=== PATIENT | male | born 1990 | race Caucasian/White ===

== ENCOUNTER 2024-04-26 17:11 | Emergency (ER) | payer OTHER, SELFPAY ==
[2024-04-26 17:12] VITALS: BP 132/88; PULSE 99; RESP 18; TEMP 36; O2SAT 97
--- NOTE | 2024-04-26 17:16 | RAD_ITS ---
STUDY: X-RAY - RIGHT HAND REASON FOR EXAM: Male, 33 years old. Trauma TECHNIQUE: 3 view(s) of the hand. COMPARISON: None. FINDINGS: Small fracture of the tip of the ulnar styloid. Nondisplaced fracture running obliquely through the fifth distal phalanx. No other acute abnormalities are seen. Normal radiocarpal articulation. Normal distal radioulnar joint. Normal visualized carpal bones. Normal carpal articulations Normal carpometacarpal articulation of the thumb. Normal second through fifth carpometacarpal joints. Normal metacarpi. Normal metacarpophalangeal joint of the thumb. Normal interphalangeal joint of the thumb. Normal proximal and distal phalanges of the thumb. Normal metacarpophalangeal joints of the second through fifth fingers. Normal proximal and distal interphalangeal joints of the second through fifth fingers. Normal phalanges of the second through fifth fingers. The soft tissue structures are unremarkable. RAD/Hand Min 3 Views IMPRESSION: Nondisplaced fracture of the fifth distal phalanx. Fracture of the tip of the ulnar styloid. Otherwise negative. Electronically Signed: Herman Maldonado MD at 18:00 EDT ,
--- NOTE | 2024-04-26 17:25 | RAD_ITS ---
STUDY: X-RAY - RIGHT WRIST REASON FOR EXAM: Male, 33 years old. Trauma TECHNIQUE: 3 view(s) of the wrist were obtained. COMPARISON: None. FINDINGS: There is a small nondisplaced fracture of the tip of the ulnar styloid. Otherwise normal visualized distal radius and ulna. Normal radiocarpal articulation. Normal distal radioulnar articulation. Normal carpal bones. Normal carpal articulations. Normal carpometacarpal articulation of the thumb. Normal second through fifth carpometacarpal articulations. Normal visualized metacarpal bones. The soft tissue structures are unremarkable. RAD/Wrist min 3 Views IMPRESSION: Tiny nondisplaced fracture of the ulnar styloid, otherwise negative. Electronically Signed: Herman Maldonado MD at 17:57 EDT ,
--- NOTE | 2024-04-26 18:01 | EX.ED.UPPERE ---
HPI History of Present Illness HPI Narrative: Patient presents with right wrist injury that occurred today. Patient states that he was loading a boat onto a trailer and the boat went over the dorsal aspect of his right wrist. The patient describes his pain as sharp and aching. Patient states it is worse with movement. Patient states his pain is better with rest. Patient was to some tingling into his right pinky finger. Patient denies any weakness. Patient is unsure of his last tetanus but thinks it was more than 10 years ago. Chief Complaint: Upper Extremity Injury Informant: patient Occured/Mechanism Mechanism/Context: Yes crush and Yes direct blow Onset/Context/Timing Onset: Today Context: Sudden Onset Timing: Continuous Quality of Pain: Aching Location: Right wrist Worsened by: Movement Relieved by: Rest Associated Symptoms Associated Symptoms: Positive for Parasthesia; Negative for Weakness or Loss of Funtion Narrative Tetanus Immunization: >10 years PFS PFS Medical History no medical history no medical history Allergy/AdvReac Type Severity Reaction Status Date / Time No Known Allergies Allergy Verified 04/26/24 17:12 Surgical History (Updated 04/26/24 @ 18:[address] Daniel Rashid DO) History of surgery on upper extremity Social History Smoking Status: Never smoker ROS ROS ED Constitutional Constitutional ED: Denies chills or fever(s) Eyes Eyes: Denies blurry vision or change in vision ENT ENT ED: Denies rhinorrhea or sore throat Cardiovascular Cardiovascular: Denies chest pain or palpitations Respiratory/Chest Respiratory/Chest: Denies cough or dyspnea Gastrointestinal Gastrointestinal: Denies nausea or vomiting Genitourinary Genitourinary ED: Denies dysuria or hematuria Musculoskeletal Musculoskeletal: Denies back pain or neck pain Integumentary Denies abscess or rash Neurologic Neurologic: Denies headache(s) or weakness Allergic/Immunologic Allergic/Immunologic ED: Denies mouth swelling or urticaria EXAM Physical Exam Const Vital Signs: 04/26/24 17:12 Temperature 96.8 F L Temperature Source Temporal Pulse Rate 99 Respiratory Rate 18 Blood Pressure 132/88 H Blood Pressure Mean 102 Pulse Ox 97 Oxygen Delivery Method Room Air Positive well nourished and well developed General Appearance ED: well developed and NAD HEENT Reports moist mucous membranes normocephalic and atraumatic Neck full ROM and supple Extremity Extremity Narrative: There is tenderness over the dorsal aspect of the right wrist. There is some edema. There is no ecchymosis. There is no obvious deformity noted. Range of motion was limited in all motions of the right wrist secondary to pain. Strength is 5/5 in the radial, median, and ulnar areas. Sensation was intact to light touch in the radial, median, and ulnar areas. However, there is decreased sensation to light touch of the distal phalanx of the right fifth finger. Radial pulses are equal bilaterally. Capillary refill is less than 2 seconds in all digits. Neuro oriented x3, CN's II-XII intact bilaterally, moves all extremities, no focal motor deficits and no sensory deficits noted Sensorium / Orientation: alert Motor Exam: strength 5/5 throughout Skin Skin Narrative: There is an abrasion over the dorsal aspect of the right index finger over the PIP joint. There is no active bleeding noted. There is no tenderness over this area. There is no erythema or warmth noted. There is full range of motion. Trauma: abrasion MDM MDM MDM Narrative Medical decision making narrative: Differential diagnosis includes fracture, contusion, and sprain. X-rays of the right hand will be obtained to assess for fracture. X-rays of the right wrist will be obtained to assess for fracture. Radiography Diagnostic Testing: Clinical Impression(s) from Imaging Studies Hand X-Ray 04/26/24 17:16 IMPRESSION: Nondisplaced fracture of the fifth distal phalanx. Fracture of the tip of the ulnar styloid. Otherwise negative. Electronically Signed: Herman Maldonado MD at 18:00 EDT , Wrist X-Ray 04/26/24 17:25 IMPRESSION: Tiny nondisplaced fracture of the ulnar styloid, otherwise negative. Electronically Signed: Herman Maldonado MD at 17:57 EDT , X-rays of the right hand were obtained. There are 3 views. On my independent interpretation, there is a nondisplaced fracture of the distal phalanx of the right fifth finger. There is also a small fracture of the tip of the ulnar styloid bone. There is no displacement of the fractures noted. Radiologist also interpreted the x-rays and agrees. X-rays of the right wrist were obtained. There are 3 views. On my independent interpretation, there is a nondisplaced fracture of the ulnar styloid. There is no other acute fracture noted. Radiologist also interpreted the x-rays and agrees. Treatment and Re-Evaluation Narrative: Patient was given a tetanus booster. Patient was advised of his findings. Patient was given an aluminum foam splint for his finger. Patient was given a Velcro wrist splint for his wrist. Patient was instructed to take Tylenol or ibuprofen as needed for pain. Patient was instructed to follow-up with his primary care physician in 5 to 7 days for further evaluation. Patient understood and was agreeable with the plan. All questions were answered. Discharge Plan Triage Chief Complaint: Upper Extremity Injury ED Provider: Daniel Rashid Dx/Rx/DC Orders Clinical Impression: Closed fracture of distal phalanx of right little finger, Closed fracture of styloid process of right ulna Instructions: ED Fracture, Finger, Closed, ED Fracture, Wrist, General Primary Care Provider: Rhonda Padilla NP Referrals: Cuco Sánchez MD [Med Staff - Active Staff] - 5-7 Days Care Physician,No Primary [Non-Staff] - Print Language: Monegasque Disposition Disposition: Home, Self Care
[2024-04-26] MEDS: Diphth,Pertuss(Acell),Tet Vac 0.5 ML Vial IM (18:43)
[2024-04-26 18:55] VITALS: BP 139/88; PULSE 72; RESP 16; TEMP 36.4; O2SAT 99
== END 2024-04-26 18:57 | disposition home or self-care (01) ==
PROVIDERS: Emergency Provider Emergency Medicine; PCP Nurse Practitioner Family; Visit Provider Emergency Medicine
DX: S52.614A Nondisplaced fracture of right ulna styloid process, initial encounter for closed fracture (principal); S62.666A Nondisplaced fracture of distal phalanx of right little finger, initial encounter for closed fracture; W22.8XXA Striking against or struck by other objects, initial encounter; Y93.89 Activity, other specified; Z23 Encounter for immunization
CPT/HCPCS: 73110; 73130; 90471; 90715; 99283

== ENCOUNTER 2024-10-12 12:17 | Outpatient (RCR) | payer OTHER, SELFPAY ==
--- NOTE | 2024-10-12 14:05 | HP.PTEVAL_ITS ---
Patient's Visit Information Visit Information Visit Information: SAHIL CAMPA is a 34 year old M referred to Physical Therapy by TYLOR Chairez with a diagnosis of SPINAL STENOSIS ,LUMBAR REGION WITH NEUROGENIC. Date of Evaluation: 10/12/24 Physical Therapist: Jose Miguel Kumar, PT, Cert MDT, OCS Visit Plan Frequency: 2x /Week Duration: 4 Weeks Plan: PT INTERVENTIONS DLS ,POSTURAL EX'S ,LE FLEXABILITY ,HIP STRENGTHENING ,AND MODALITIES Subjective Subjective: This 34 y/o male presents to physical therapy with lumbar stenosis with radicular symptoms in legs. Patient has sincek 2014 which progressively worse ~ 3 weeks ago. Patient seen TYLOR Boland and did x-rays and prescribed flexural. Patient states rely on a shopping cart to lean on when grocery shopping. He complains of occasional numbness/tingling and radiating pain into the legs right > left. Location pain extends from his right buttock down the back of his right leg into his calf. Aggravating walking ~ 10 mins . Alleviating factors sitting ,bending forward. Coughing/sneezing. Bowel/bladder-. Patient has no prior TX . Patient has no prior trauma/injury. recommended pain management . MRI is scheduled . November 08. Patient condition affects QOL and function/job demands VOCATION: [employer] SOCIAL: Pain Bilateral Back: Pain Intensity (Out of 10): 5 Pain Intensity Range: 10 Comment: right LS Objective Objective: POSTURE: mild forward posture GAIT: reciprocal pattern NEURO: c/o parestehesia/tingling right leg PALPATION: unremarkable FLEXABILITY: hamstrings mod tight MMT: quads/hams 4/5 ,hip flexion 4-/'5,ankle 5/5 LUMBAR ROM: flexion min/,mod loss loss ,extension min loss ,side glides min loss Special Tests L/S Slump test left side: Negative L/S Slump test right side: Negative L/S Left Straight Leg Raise: Negative L/S Right Straight Leg Raise: Negative Lumbar Standing: Flexion - Mechanical Response: No effect Lumbar Standing: Flexion - Symptoms During Testing: No effect Lumbar Standing: Flexion - Symptoms After Testing: No effect Lumbar Standing: Extension - Mechanical Response: No effect Lumbar Standing: Extension - Symptoms During Testing: Increases Lumbar Standing: Extension - Symptoms After Testing: No worse Lumbar Standing: Right Side Glides - Mechanical Response: No effect Lumbar Standing: Right Side [place] - Symptoms During Testing: No effect Lumbar Standing: Right Side [place] - Symptoms After Testing: No effect Lumbar Standing: Left Side [place] - Mechanical Response: No effect Lumbar Standing: Left Side [place] - Symptoms During Testing: No effect Lumbar Standing: Left Side [place] - Symptoms After Testing: No effect Lumbar Lying: Flexion - Mechanical Response: No effect Lumbar Lying: Flexion - Symptoms During Testing: Increases Lumbar Lying: Flexion - Symptoms After Testing: No worse Lumbar Lying: Extension - Mechanical Response: No effect Lumbar Lying: Extension - Symptoms During Testing: Increases Lumbar Lying: Extension - Symptoms After Testing: No worse Comments:: back Balance/Special Test Scores Oswestry Low Back Score: 24 Goals Goal 1:: Patient to be I with HEP for back Goal Time Frame: 4-6 Weeks Goal 2:: Patient to improve lumbar ROM for function recovery to lift at job Goal Time Frame: 4-6 Weeks Goal 3:: Patient to improve back oswestry score by 5 points to improve QOL and function Goal Time Frame: 4-6 Weeks Goal 4:: Patient to demonstrate 50% with improvement with less pain and improved function Goal Time Frame: 4-6 Weeks Goal 5:: Patient to improve ability to walk > 15 mins to improve ADLS Goal Time Frame: 4-6 Weeks Rehabilitation Potential Physical Therapy Diagnosis: This patient has lumbar radiculopathy with possible stenosis with pain worse with walking and better with flexion and sitting thus benefit from skilled PT Rehabilitation Potential: Good Anticipated Interventions Patient/Client Instruction: Educate patient on: Condition and Plan of Care For the Purpose of:: To decrease pain, To increase ROM, To improve muscle performance and motor function, To improve ability to perform ADL's, To increase tolerance to activity/condition/position, To improve ability of physical actions for home/community/work/leisure, To improve health of tissue, To decrease soft tissue restriction, To increase flexibility/ROM, To reduce risk of recurrence, To prevent re-injury and To improve tolerance to ADL's Therapeutic Exercise to Include: Strength training, Endurance training, Postural training, Flexibilty training, Dynamic Lumbar Stabilization and [place] Exercises For the Purpose of:: To decrease pain, To increase ROM, To improve muscle performance and motor function, To improve ability to perform ADL's, To increase tolerance to activity/condition/position, To improve ability of physical actions for home/community/work/leisure, To improve health of tissue, To decrease soft tissue restriction, To increase flexibility/ROM, To reduce risk of recurrence and To improve tolerance to ADL's TENS: Yes IF ES: Yes Cryotherapy (ice pack, ice massage): Yes Thermo therapy (hot pack): Yes Ultrasound (thermal/non thermal): Yes For the Purpose of:: To decrease pain, To increase ROM, To improve nutrient delivery to tissue, To increase oxygenation perfusion, To improve health of tissue and To decrease soft tissue restriction Text: Thank you for the opportunity to evaluate your patient. For Medicare and Medicare HMO plans, please review the plan of care and approve it. It will need to be FAXED BACK to us at [phone] for Medicare purposes. For Medicare only, by signing this I certify the plan of care. Please let me know if there are questions or concerns regarding this plan of care. Physician S ignature: Date:
--- NOTE | 2025-01-10 11:27 | HP.PT.NRP ---
Patient Information Patient Information: SAHIL CMAPA was seen in my office for initial evaluation on 10/12/24. The following Plan of Care was established for this patient: POC Established Initial Frequency: 2x /Week Initial Duration: 4 Weeks Anticipated Interventions Patient/Client Instruction: Educate patient on: Condition and Plan of Care For the Purpose of:: To decrease pain, To increase ROM, To improve muscle performance and motor function, To improve ability to perform ADL's, To increase tolerance to activity/condition/position, To improve ability of physical actions for home/community/work/leisure, To improve health of tissue, To decrease soft tissue restriction, To increase flexibility/ROM, To reduce risk of recurrence, To prevent re-injury and To improve tolerance to ADL's Therapeutic Exercise to Include: Strength training, Endurance training, Postural training, Flexibilty training, Dynamic Lumbar Stabilization and [place] Exercises For the Purpose of:: To decrease pain, To increase ROM, To improve muscle performance and motor function, To improve ability to perform ADL's, To increase tolerance to activity/condition/position, To improve ability of physical actions for home/community/work/leisure, To improve health of tissue, To decrease soft tissue restriction, To increase flexibility/ROM, To reduce risk of recurrence and To improve tolerance to ADL's TENS: Yes IF ES: Yes Cryotherapy (ice pack, ice massage): Yes Thermo therapy (hot pack): Yes Ultrasound (thermal/non thermal): Yes For the Purpose of:: To decrease pain, To increase ROM, To improve nutrient delivery to tissue, To increase oxygenation perfusion, To improve health of tissue and To decrease soft tissue restriction Last Seen Last Seen: This patient was last seen in our office . Pertinent comments regarding their Physical therapy will appear below: Patient was seen for PT for evaluation for spinal stenosis and HEP At this point I will be discontinuing this patient from physical therapy. I would be happy to see this patient again in the future if found appropriate by the physician. Thank you! Jose Miguel Kumar, PT, Cert MDT, OCS Balance/Gait/Functional tests Balance/Special Test Scores Oswestry Low Back Score: 24
== END 2024-10-12 19:00 | disposition home or self-care (01) ==
LOC: PT 12:17
PROVIDERS: PCP Nurse Practitioner Family; Visit Provider Student in an Organized Health Care Education/Training Program
DX: M48.062 Spinal stenosis, lumbar region with neurogenic claudication (principal)
CPT/HCPCS: 97110; 97162

== ENCOUNTER → 2025-02-28 | Outpatient (CLI) | payer OTHER, SELFPAY ==
--- OUTSIDE RECORDS SUMMARY | 2025-02-28 07:09 | XMS RPT_ITS | CCD ---
Author Organization [facility] Care Team Providers Care Flour Blender Name Role Phone Unavailable Primary Care Provider Unavailabl e Sheets DO, Page C Primary Care Provider [phone] Sheets DO, Page C Primary Care Provider [phone] PRADEEP BYRD Attending Unavailable SHEETS, PAGE SORIA Primary Care Dejah vailable SHEETS, PAGE Primary Care Physician Otis Giraldo Attending Unavailable SHEETS, PAGE Primary Care Unavailable SHEETS, PAGE Primary Care Unavailable Otis Giraldo Attending Unavailable SHEETS, PAGE C Primary Care Unavailable SHEETS, PAGE C Referring Unavailable SHEETS, PAGE C Referring Unavailable SHEETS, PAGE C Primary Care Unavailable SHEETS, PAGE C Primary Care Unavailable QUEDEN, RHONDA A Attending Unavailable SHEETS, PAGE C Primary Care Unavailable PARAMJIT JUARESICA Referring Unavailable SHEETS, PAGE C Attending Unavailable SHEETS, PAGE C Primary Care Unavailable SELF Referring Unavailable SHEETS, PAGE C Primary Care Unavailable SHEETS, PAGE C Referring Unavailable SHEETS, PAGE C Primary Care Unavailable SHEETS, PAGE C Primary Care Unavailable QUEDEN, RHONDA A Referring Unavailable SHEETS, PAGE C Primary Care Unavailable QUEDEN, RHONDA A Referring Unavailable SHEETS, PAGE C Primary Care Unavailable Queden TURRET PUNCH OPERATOR-C, Rhonda Primary Care Provider Queden TURRET PUNCH OPERATOR-C, Rhonda Referring Provider Rosenda Espinosa Attending Provider Rick CLINTON, Dr. Barbour Attending Provider Km Cabrera Attending Unavailable Queden TURRET PUNCH OPERATOR, Rhonda Primary Care Unavailable Queden TURRET PUNCH OPERATOR, Rhonda Referring Unavailable Queden TURRET PUNCH OPERATOR, Rhonda Primary Care Unavailable Cuco Sánchez Attending Unavailable Queden TURRET PUNCH OPERATOR, Rhonda Primary Care Unavailable Queden TURRET PUNCH OPERATOR, Rhonda Referring Unavailable Cuco Sánchez Attending Unavailable Rick, [place] Attending Unavailable Queden TURRET PUNCH OPERATOR, Rhonda Primary Care Unavailable Queden TURRET PUNCH OPERATOR, Rhonda Referring Unavailable Queden TURRET PUNCH OPERATOR, Rhonda Primary Care Unavailable Cuco Sánchez Attending Unavailable Rick, [place] Attending Unavailable Queden TURRET PUNCH OPERATOR, Rhonda Primary Care Unavailable Queden TURRET PUNCH OPERATOR, Rhonda Referring Unavailable Queden TURRET PUNCH OPERATOR, Rhonda Primary Care Unavailable Krystian, Rosenda Attending Unavailable Krystian, Rosenda Referring Unavailable Queden TURRET PUNCH OPERATOR, Rhonda Primary Care Unavailable Krystian, Rosenda Attending Unavailable Queden TURRET PUNCH OPERATOR, Rhonda Primary Care Unavailable Krystian, Rosenda Attending Unavailable Queden TURRET PUNCH OPERATOR, Rhonda Primary Care Unavailable Daniel Rashid Attending Unavailable Allergies Allergy Classification Reported Allergen(s) Allergy Type Date of Onset Reaction(s) Facility (1 source) No Known Medication Allergies; Translations: [No Known Medication Allergies] Propensity to adverse reactions (disorder) [facility] Rep[facility] Medications Current Medications Medication Drug Class(es) Dates Sig (Normalized) Sig (Original) amoxicillin 875 mg / clavulanate 125 mg oral tablet (2 sources) Penicillin-class Antibacterial Start: 11-27-2024 End: 12-07-2024 take 1 tablet by mouth twice daily amoxicillin-clavulan ate potassium (AUGMENTIN) 875-125 mg per tablet Indications: Acute non-recurrent streptococcal tonsillitis Take 1 tablet by mouth two times a day for 10 days. 20 tablet 11/27/2024 12/07/2024 Active cyclobenzaprine hydrochloride 10 mg oral tablet (20 sources) Muscle Relaxant Start: 02-12-2025 End: 02-24-2025 take 1 tablet by mouth every eight hours as needed cyclobenzaprine (FLEXERIL) 10 mg tablet Take 1 tablet by mouth three times a day as needed for muscle spasm. 90 tablet 02/25/2025 Active Start: 01-24-2025 End: 02-09-2025 take 1 tablet by mouth every eight hours as needed cyclobenzaprine (FLEXERIL) 10 mg tablet Take 1 tablet by mouth three times a day as needed for muscle spasm. 90 tablet 01/24/2025 02/09/2025 Discontinued Start: 01-07-2025 take 1 tablet by karina th every eight hours as needed cyclobenzaprine (FLEXERIL) 10 mg tablet Take 1 tablet by mouth three times a day as needed for muscle spasm. 90 tablet 01/07/2025 Active Start: 11-19-2024 End: 01-05-2025 take 1 tablet by mouth every eight hours as needed cyclobenzaprine (FLEXERIL) 10 mg tablet Take 1 tablet by mouth three times a day as needed for muscle spasm. 90 tablet 12/04/2024 01/05/2025 Discontinued Start: 10-09-2024 take 1 tablet by karina th twice daily as needed for muscle spasms Cyclobenzaprine 10 mg tablet Active 10 mg PO TWICE A DAY as needed for muscle spasm October 09, 2024 1:00am Start: 10-02-2024 End: 11-05-2024 take 1 tablet by mouth every eight hours as needed cyclobenzaprine (FLEXERIL) 10 mg tablet Take 1 tablet by mouth three times a day as needed for muscle spasm. 21 tablet 10/22/2024 11/05/2024 Discontinued Start: 06-30-2024 End: 07-05-2024 take 1 tablet by mouth three times daily as needed for pain cyclobenzaprine 10 mg Tab 10 mg = 1 tab(s), Oral, TID, PRN Muscle pain, X 5 day(s), # 15 tab(s), Refills(s) 0, Pharmacy: [id number], 170.1, cm, 06/29/24 22:03:00 EDT, Height/Length Dosing, 91.9, kg, 06/29/24 22:03:00 EDT, Weight Dosing Start Date: 06/30/24 Stop Date: 07/05/24 Status: Ordered escitalopram 20 mg oral tablet (20 sources) Serotonin Reuptake Inhibitor Start: 02-12-2025 take 1 tablet by mouth once daily escitalopram oxalate (LEXAPRO) 20 mg tablet Take 1 tablet by mouth once daily. 30 tablet 5 02/12/2025 Active Start: 08-22-2023 End: 02-09-2025 take 1 tablet by mouth once daily escitalopram oxalate (LEXAPRO) 20 mg tablet TAKE 1 TABLET BY MOUTH EVERY DAY in the afternoon 30 tablet 11 11/05/2024 02/09/2025 Discontinued Comment on above: Take 1 tablet by karina th every afternoon. gabapentin 300 mg oral capsule (5 sources) Anti-epileptic Agent Start: 11-21-19 take 1 capsule by mouth every twelve hours gabapentin (NEURONTIN) 300 mg capsule Take 1 capsule by mouth every 12 hours. 11/20/2024 Active meloxicam 7.5 mg oral tablet (5 sources) Nonsteroidal Anti-inflammatory Drug Start: 11-21-19 take 1 tablet by mouth every twelve hours meloxicam (MOBIC) 7.5 mg tablet Take 1 tablet by mouth every 12 hours. 11/20/2024 Active multivit-min/folic/vi t K/lycop (ONE-A-DAY MEN'S MULTIVITAMIN ORAL) (20 sources) take 1 tablet by mouth once daily, then take 1 tablet by mouth once daily multivit-min/folic/v it K/lycop (ONE-A-DAY MEN'S MULTIVITAMIN ORAL) Take 1 tablet by mouth once daily. Active take 1 tablet by karina th once daily, then take 1 tablet by mouth once daily multivit-min/folic/vit K/lycop (ONE-A-DA Y MEN'S MULTIVITAMIN ORAL) Take 1 tablet by mouth once daily. 0 Active Comment on above: Take 1 tablet by karina th once daily. naproxen 500 mg oral tablet (1 source) Nonsteroidal Anti-inflammatory Drug Start: 4 take 1 tablet by mouth twice daily as needed for pain naproxen 500 mg Tab 500 mg = 1 tab(s), Oral, BID, PRN for pain, # 20 tab(s), Refills(s) 0, Pharmacy: [id number], 170.1, cm, 06/29/24 22:03:00 EDT, Height/Length Dosing, 91.9, kg, 06/29/24 22:03:00 EDT, Weight Dosing Start Date: 06/30/24 Status: Ordered predniSONE 20 mg oral tablet (10 sources) Start: 5 End: 5 take 1 tablet by mouth twice daily predniSONE (DELTASONE) 20 mg tablet Indications: Acute non-recurrent streptococcal tonsillitis Take 1 tablet by mouth two times a day for 3 days. 6 tablet 11/27/2024 11/30/2024 Active Start: 10-02-2024 End: 11-27-2024 predniSONE (DELTASONE) 10 mg tablet Take 4 tabs daily for 3 days, then 2 tabs daily for 3 days, then 1 tab daily for 3 days with food. 21 tablet 10/02/2024 11/27/2024 Discontinued (Course of therapy completed) Problems Active Problems Problem Classification Problem Date Documented Date Episodic/Chronic Anxiety disorders (20 sources) Generalized anxiety disorder; Translations: [Generalized anxiety disorder] Onset: 09-14-2023 09-14-2023 Chronic Nonspecific chest pain (2 sources) Chest pain, unspecified; Translations: [Chest pain, unspecified] Onset: 06-11-2024 Episodic Nutritional deficiencies (3 sources) Vitamin D deficiency; Translations: [Vitamin D deficiency, unspecified] Onset: 03-29-2024 03-29-2024 Chronic Other connective tissue disease (1 source) Muscle pain; Translations: [Myalgia, other site] Onset: 06-30-2024 Episodic Other connective tissue disease (2 sources) Pain in right lower limb; Translations: [Pain in right leg] 10-02-2024 Episodic Other connective tissue disease (1 source) Pain in right leg; Translations: [Right leg pain] Onset: 10-02-2024 Episodic Other lower respiratory disease (1 source) Snoring; Translations: [Snoring] 03-29-2024 Episodic Other nervous system disorders (1 source) Disorder of right sciatic nerve 10-19-2024 Chronic Other nervous system disorders (1 source) Other chronic pain; Translations: [Chronic pain of right knee] Onset: 10-04-2024 Chronic Other non-traumatic joint disorders (4 sources) Pain in right knee; Translations: [Pain in joint, lower leg] Onset: 10-04-2024 10-04-2024 Episodic Other nutritional; endocrine; and metabolic disorders (20 sources) Obese class I; Translations: [Obesity, unspecified] Onset: 09-14-2023 09-14-2023 Chronic Other upper respiratory infections (2 sources) Sore throat symptom; Translations: [Acute pharyngitis, unspecified] 11-27-2024 Episodic Residual codes; unclassified (2 sources) Daytime somnolence; Translations: [Other hypersomnia] 03-29-2024 Chronic Residual codes; unclassified (2 sources) Obstructive sleep apnea syndrome; Translations: [Obstructive sleep apnea (adult) (pediatric)] 04-24-2024 Chronic Residual codes; unclassified (1 source) Obstructive sleep apnea (adult) (pediatric); Translations: [NAHUM (obstructive sleep apnea)] Onset: 10-04-2024 Chronic Residual codes; unclassified (2 sources) Other hypersomnia; Translations: [Excessive daytime sleepiness] Onset: 03-29-2024 Chronic Spondylosis; intervertebral disc disorders; other back problems (1 source) Degeneration of lumbar intervertebral disc; Translations: [Degenerative disc disease, lumbar] 10-09-2024 Chronic Spondylosis; intervertebral disc disorders; other back problems (7 sources) Disorder of right sciatic nerve; Translations: [Sciatica, right side] Onset: 10-04-2024 10-04-2024 Episodic Unclassified (3 sources) Chronic pain of right knee 10-19-2024 Unclassified (4 sources) Spinal stenosis of lumbar region with neurogenic claudication; Translations: [M48.062 - Spinal stenosis, lumbar region with neurogenic claudication] Unclassified (1 source) Low back pain, unspecified; Translations: [Low back pain, unspecified] Onset: 10-09-2024 Past or Other Problems Problem Classification Problem Date Documented Da te Episodic/Chronic Fracture of upper limb (5 sources) Fracture of upper limb; Translations: [Closed fracture of styloid process of ulna] Onset: 05-29-2024 06-29-2024 Episodic Malaise and fatigue (3 sources) Fatigue; Translations: [Other fatigue] Onset: 03-29-2024 03-29-2024 Episodic Other injuries and conditions due to external causes (1 source) Unspecified injury of right wrist, hand and finger(s), initial encounter; Translations: [Unspecified injury of right wrist, hand and finger(s), initial encounter] Onset: 05-21-2024 Episodic Other lower respiratory disease (2 sources) Snoring; Translations: [Loud snoring] Onset: 03-29-2024 Episodic Other screening for suspected conditions (not mental disorders or infectious disease) (8 sources) Patient encounter status; Translations: [Encounter for screening for diabetes mellitus] Onset: 03-29-2024 03-29-2024 Episodic Results Test Name Value Interpretation Reference Range Facility [facility] 11-27-2024 CNOV Office Visit (UCWSTR ) PA CAMPA ([id number]) 1990 M Date Time Provider Department 11/27/24 1:45 PM ARMAAN SORIA [facility] During your visit today, we recorded the following information about you: Temperature Pulse Respiration Blood pressure 97.9 degrees 106/minute 16/minute 120/70 Weight 97.5 kg Armaan Soria PA-C 11/27/2024 2:34 PM Signed This note was created using BooRah. Subjective Pa Campa is a 34 year old male. Patient is a 34-year-old male who complains of worsening sore throat that he has been experiencing for the past 1 day. Patient states that he has noted redness as well as white spots to the back of his throat and tonsils. Patient reports no fever, chills or myalgia. Patient denies congestion, sinus pressure, ear pain, cough or other illness symptoms. Patient states that his is currently asymptomatic and in good health. Sore Throat Review of Systems HENT: Positive for sore throat. All other systems reviewed and are negative. Objective BP 120/70 Pulse 106 Temp 36.6 ?C (97.9 ?F) Resp 16 Wt 97.5 kg (214 lb 15.2 oz) SpO2 97% BMI 34.69 kg/m? Physical Exam Vitals and nursing note reviewed. Constitutional: Appearance: Normal appearance. He is normal weight. HENT: Head: Normocephalic and atraumatic. Right Ear: External ear normal. Left Ear: External ear normal. Nose: Nose normal. Mouth/Throat: Mouth: Mucous membranes are moist. Pharynx: Oropharyngeal exudate and posterior oropharyngeal erythema present. Eyes: Extraocular Movements: Extraocular movements intact. Conjunctiva/sclera: Conjunctivae normal. Pupils: Pupils are equal, round, and reactive to light. Cardiovascular: Rate and Rhythm: Normal rate and regular rhythm. Pulses: Normal pulses. Heart sounds: Normal heart sounds. Pulmonary: Effort: Pulmonary effort is normal. Breath sounds: Normal breath sounds. Musculoskeletal: Cervical back: Normal range of motion and neck supple. Skin: General: Skin is warm and dry. Capillary Refill: Capillary refill takes less than 2 seconds. Neurological: General: No focal deficit present. Mental Status: He is alert and oriented to person, place, and time. Psychiatric: Mood and Affect: Mood normal. Behavior: Behavior normal. Thought Content: Thought content normal. Judgment: Judgment normal. Assessment and Plan Physical exam findings as noted above. Rapid strep test is negative. Given the patient's clinical presentation and physical exam findings, he was provided with prescriptions for Augmentin 875-125 mg and prednisone 20 mg. Supportive care instructions were discussed and the patient verbalizes excellent understanding of same. CLINICAL IMPRESSION: Acute Streptococcal Tonsillitis ASSESSMENT/PLAN: 1. Sore throat - ICD9: 462, ICD10: J02.9 (primary diagnosis) - STREP A MOLECULAR (POC) 2. Acute non-recurrent streptococcal tonsillitis - ICD9: 034.0, ICD10: J03.00 - AMOXICILLIN 875 MG-POTASSIUM CLAVULANATE 125 MG TABLET - PREDNISONE 20 MG TABLET MDM Amount and/or Complexity of Data Reviewed Clinical lab tests: ordered and reviewed Risk of Complications, Morbidity, and/or Mortality Presenting problems: low Diagnostic procedures: low Management options: mainor Soria PA-C Allergies As of Date: 11/27/2024 (No Known Allergies) Date Reviewed: 11/27/2024 Reviewed by: Roxana Perez MA - Fully Assessed Reason for Visit: Sore Throat [200] Cmt: x 1 day Primary Visit Diagnosis:Sore throat [J02.9] Other Visit Diagnosis:Acute non-recurrent streptococcal tonsillitis [J03.00] Order(s):STREP A MOLECULAR (POC) [7850257] Order #: [id number] amoxicillin-clavulanate potassium (AUGMENTIN) 875-125 mg per tabletTake 1 tablet by mouth two times a day for 10 days.Disp: 20 tabletRfl: 0 predniSONE (DELTASONE) 20 mg tabletTake 1 tablet by mouth two times a day for 3 days.Disp: 6 tabletRfl: 0 Prescriptions as of 11/27/2024 - gabapentin (NEURONTIN) 300 mg capsule Take 1 capsule by mouth every 12 hours. - meloxicam (MOBIC) 7.5 mg tablet Take 1 tablet by mouth every 12 hours. - amoxicillin-clavulanate potassium (AUGMENTIN) 875-125 mg per tablet Take 1 tablet by mouth two times a day for 10 days. - predniSONE (DELTASONE) 20 mg tablet Take 1 tablet by mouth two times a day for 3 days. - cyclobenzaprine (FLEXERIL) 10 mg tablet Take 1 tablet by mouth three times a day as needed for muscle spasm. - escitalopram oxalate (LEXAPRO) 20 mg tablet TAKE 1 TABLET BY MOUTH EVERY DAY in the afternoon - multivit-min/folic/vit K/lycop (ONE-A-DAY MEN'S MULTIVITAMIN ORAL) Take 1 tablet by mouth once daily. Problem List As Of Date 11/27/2024 Noted Resolved Obesity, Class I, BMI 30-34.9 [E66.811] 09/14/2023 REDD (generalized anxiety disorder) [F41.1] 09/14/2023 Prescriptions ordered this encounter Disp Refills Start End (more content not included)... Normal [facility] Ariella 10-16-2024 KYLE Telephone (SAUL) PA CAMPA ([id number]) 1990 M Date Time Provider Department 10/16/24 PAGE BLANDON During your visit today, we recorded the following information about you: Shelly Abreu MA 10/16/2024 12:50 PM Signed [facility] Rehabilitation Services Initial Evaluation placed in Dr. Blandon green folder to be signed. STEFFANIE Glass Janie, MA 10/18/2024 2:[address] PM [address] S[address] by Dr. Blandon and faxed back to [phone]. Shelly Abreu MA Allergies As of Date: 10/16/2024 (No Known Allergies) Date Reviewed: 10/04/2024 Reviewed by: Page Blandon DO - Fully Assessed Reason for Visit: Forms [913] Cmt: [facility] Rehabilitation Services Initial Evaluation Prescriptions as of 10/18/2024 - cyclobenzaprine (FLEXERIL) 10 mg tablet Take 1 tablet by mouth three times a day as needed for muscle spasm. - predniSONE (DELTASONE) 10 mg tablet Take 4 tabs daily for 3 days, then 2 tabs daily for 3 days, then 1 tab daily for 3 days with food. - escitalopram oxalate (LEXAPRO) 20 mg tablet Take 1 tablet by mouth every afternoon. - multivit-min/folic/vit K/lycop (ONE-A-DAY MEN'S MULTIVITAMIN ORAL) Take 1 tablet by mouth once daily. Problem List As Of Date 10/16/2024 Noted Resolved Obesity, Class I, BMI 30-34.9 [E66.811] 09/14/2023 REDD (generalized anxiety disorder) [F41.1] 09/14/2023 Encounter Status:Closed by SHELLY ABREU on 10/16/24 Normal [facility] Inital Evaluation (1) - PTon 10-12-2024 Inital Evaluation (1) - PT [facility] Physical Therapy [facility] [address] [place] [address] [address] [place] [id number] / REHABILITATION SERVICES INITIAL EVALUATION MR#: [id number] Acct: [id number] Name: PA CAMPA Rep #: [id number] : 1990 34 From: Jose Miguel Kumar PT, Cert. MD Gonzalez, OCS Referring DrLacey: TYLOR Chairez Status: REG RCR Insurance: [facility] SELF PAY INSURANCE Patient's Visit Information Visit Information Visit Information: PA CAMPA is a 34 year old M referred to Physical Therapy by TYLOR Chairez with a diagnosis of SPINAL STENOSIS ,LUMBAR REGION WITH NEUROGENIC. Date of Evaluation: 10/12/24 Physical Therapist: Jose Miguel Kumar PT, Cert T, OCS Visit Plan Frequency: 2x /Week Duration: 4 Weeks Plan: PT INTERVENTIONS DLS ,POSTURAL EX'S ,LE FLEXABILITY ,HIP STRENGTHENING ,AND MODALITIES Subjective Subjective: This 34 y/o male presents to physical therapy with lumbar stenosis with radicular symptoms in legs. Patient has sincek 2014 which progressively worse 3 weeks ago. Patient seen TYLOR Boland and did x-rays and prescribed flexural. Patient states rely on a shopping cart to lean on when grocery shopping. He complains of occasional numbness/tingling and radiating pain into the legs right > left. Location pain extends from his right buttock down the back of his right leg into his calf. Aggravating walking 10 mins . Alleviating factors sitting ,bending forward. Coughing/sneezing. Bowel/bladder-. Patient has no prior TX . Patient has no prior trauma/injury. Dr recommended pain management . MRI is scheduled . November 08. Patient condition affects QOL and function/job demands VOCATION: [employer] SOCIAL: Pain Bilateral Back: Pain Intensity (Out of 10): 5 Pain Intensity Range: 10 Comment: right LS Objective Objective: POSTURE: mild forward posture GAIT: reciprocal pattern NEURO: c/o parestehesia/tingling right leg PALPATION: unremarkable FLEXABILITY: hamstrings mod tight MMT: quads/hams 4/5 ,hip flexion 4-/'5,ankle 5/5 LUMBAR ROM: flexion min/,mod loss loss ,extension min loss ,side glides min loss Special Tests L/S Slump test left side: Negative L/S Slump test right side: Negative L/S Left Straight Leg Raise: Negative L/S Right Straight Leg Raise: Negative Lumbar Standing: Flexion - Mechanical Response: No effect Lumbar Standing: Flexion - Symptoms During Testing: No effect Lumbar Standing: Flexion - Symptoms After Testing: No effect Lumbar Standing: Extension - Mechanical Response: No effect Lumbar Standing: Extension - Symptoms During Testing: Increases Lumbar Standing: Extension - Symptoms After Testing: No worse Lumbar Standing: Right Side Glides - Mechanical Response: No effect Lumbar Standing: Right Side Milano - Symptoms During Testing: No effect Lumbar Standing: Right Side [place] - Symptoms After Testing: No effect Lumbar Standing: Left Side [place] - Mechanical Response: No effect Lumbar Standing: Left Side [place] - Symptoms During Testing: No effect Lumbar Standing: Left Side [place] - Symptoms After Testing: No effect Lumbar Lying: Flexion - Mechanical Response: No effect Lumbar Lying: Flexion - Symptoms During Testing: Increases Lumbar Lying: Flexion - Symptoms After Testing: No worse Lumbar Lying: Extension - Mechanical Response: No effect Lumbar Lying: Extension - Symptoms During Testing: Increases Lumbar Lying: Extension - Symptoms After Testing: No worse Comments:: back Balance/Special Test Scores Oswestry Low Back Score: 24 Goals Goal 1:: Patient to be I with HEP for back Goal Time Frame: 4-6 Weeks Goal 2:: Patient to improve lumbar ROM for function recovery to lift at job Goal Time Frame: 4-6 Weeks Goal 3:: Patient to improve back oswestry score by 5 points to improve QOL and function Goal Time Frame: 4-6 Weeks Goal 4:: Patient to demonstrate 50% with improvement with less pain and improved function Goal Time Frame: 4-6 Weeks Goal 5:: Patient to improve ability to walk > 15 mins to improve ADLS Goal Time Frame: 4-6 Weeks Rehabilitation Potential Physical Therapy Diagnosis: This patient has lumbar radiculopathy with possible stenosis with pain worse with walking and better with flexion and sitting thus benefit from skilled PT Rehabilitation Potential: Good Anticipated Interventions Patient/Client Instruction: Educate patient on: Condition and Plan of Care For the Purpose of:: To decrease pain, To increase ROM, To improve muscle performance and motor function, To improve ability to perform ADL's, To increase tolerance to activity/condition/posi tion, To improve ability of physical actions for home/community/work/lei sure, To improve health of tissue, To decrease soft tissue restriction, To increase flexibility/ROM, To reduce risk of recurrence, To prevent re-injury and To improve tolerance to ADL's Therapeutic Exercise (more content not included)... Normal [facility] L/S Spine Min 4 Viewson L/S Spine Min 4 Views [facility] Imaging Services [address], [place] [address] L/S Spine Min 4 Views MR#: [id number] Acct: [id number] Name: PA CAMPA Rep #: [id number] : 1990 M 34 From: Armaan Parrish MD PCP: TIANNA Almazan Status: DEP AMB Study: L/S Spine Min 4 Views Date of Exam: 10/09/24 Exam# [id number] Ordering Dr: Rosenda Boland EXAM: XR Lumbosacral Spine, 4 or 5 Views CLINICAL INDICATION: TECHNIQUE: Frontal, lateral and bilateral oblique views of the lumbar spine. COMPARISON: No relevant prior studies available. FINDINGS: VERTEBRAE: Unremarkable. No acute fracture. Normal alignment. SACRUM/COCCYX: Unremarkable as visualized. No acute fracture. DISC SPACES: No acute findings. No significant narrowing. SOFT TISSUES: Unremarkable. RAD/L/S Spine Min 4 Views IMPRESSION: Normal lumbar spine x-rays. Reading Location[facility] CC: TIANNA Padilla; TYLOR Chairez Pocket Operator: Signed Normal [facility] Orthopedic Visit Reporton Orthopedic Visit Report [facility] [address] [place], [place] [address] OFFICE VISIT Date of Service: 10/09/24 MR#: [id number] Acct: [id number] Name: PA CAMPA Rep #: [id number] : 1990 Provider: TYLOR Chairez Age/Sex: 34/M Location: [facility] [place] Status: Signed Intake Vital Signs 05/04/24 10:23 10/08/24 10:35 10/09/24 08:29 Height 5 ft 6 in 5 ft 6 in 5 ft 6 in Weight: 213 lb BMI 34.3 Intake Visit Reasons: LUMBAR SPINE Chief Complaint: Lumbar Spine Pain Accompanied by: Self Is patient in pain?: Yes Pain scale (1-10): 6 Allergies No Known Allergies Allergy (Verified 10/09/24 08:30) Medications ???Medication ???Instructions ???Recorded ???Confirmed ???Type escitalopram oxalate 20 mg tablet 20 mg PO QDAY 05/04/24 10/09/24 H istory cyclobenzaprine 10 mg tablet 10 mg PO BID PRN muscle spasm #30 10/09/24 10/09/24 Rx tabs PFSH Surgical History History of appendectomy History of surgery on upper extremity Social History Smoking Status: Former smoker alcohol intake: never HPI LUMBAR SPINE Details: This documentation accurately reflects the service provided and the decisions made by me, TYLOR Chairez 10/09/24 0827. Part of today???s visit was documented by Pao Contreras ATC, acting as scribe. PA CAMPA is a 34 year old M here today for lumbar spine pain. Patient states the back has been bothering him for a couple years now but the last 2 weeks it has progressively gotten worse. He denies any injury/accident that caused the pain in the back. He describes the pain over the right lower lumbar spine. He states he can take a step and it feels like someone is stabbing him in the back. Says that the pain increases with walking. Currently he can only walk about half a mile before his pain exacerbates in his leg. Originally before he was able to walk 5 to 6 miles at a time without stopping. He says that the pain improves when he sits down and leans forward. He does rely on a shopping cart to lean on when grocery shopping. He complains of occasional numbness/tingling and radiating pain into the legs. He says that the pain extends from his right buttock down the back of his right leg into his calf. Patient denies surgery, injections or physical therapy. Patient states he was taking ibuprofen and Tylenol for the pain and then after he was seen at urgent care they gave him steroids and Flexeril and states it did take the pain off. He says that he felt like that the muscle relaxer did give him mild benefit. He has applied arthritis topical ointment to the area and it seems to help for about half the day. No history of diabetes, no heart or lung issues, no blood thinners. Ortho Exam General General: Yes no acute distress Neurologic: Yes alert and Yes oriented x3 Spine SPINE TESTING CERVICAL THORACIC LUMBAR Musculoskeletal Strength 0=absent - 5=normal Details: Neurological exam of the lower extremities shows 5x5 power. Increased pain with hip flexion and back extension. Normal sensations across all dermatomes. No hyperreflexia. Mild midline and right paraspinal tenderness. Coding Level of Care Code Off vis,est,level 4 Diagnoses Lumbar stenosis with neurogenic claudication M48.062 Degeneration of intervertebral disc of lumbar region with discogenic back pain and lower extremity pain M51.362 Disc-related pain type: discogenic back pain and lower extremity pain Assessment and Plan Assessment and Plan (1) Lumbar stenosis with neurogenic claudication: Status: Acute (2) Degenerative disc disease, lumbar: Qualifiers: Disc-related pain type: discogenic back pain and lower extremity pain Qualified Code(s): M51.362 - Other intervertebral disc degeneration, lumbar region with discogenic back pain and lower extremity pain Orders: Orders L/S Spine Min 4 Views Today M54.50 - Low back pain, unspecified Spine Lumbar (Routine) Today M48.062 - Spinal stenosis, lumbar region with neurogenic claudication Referrals Pain Management M48.062 - Spinal stenosis, lumbar region with neurogenic claudication Physical Therapy Referral M48.062 - Spinal stenosis, lumbar region with neurogenic claudication Medications: New cyclobenzaprine 10 mg PO BID PRN 30 tabs 0RF muscle spasm Plan Obtained and reviewed x-rays today with the patient. X-rays show a mild multilevel disc height loss. No instability seen on flexion/extension views. No MRI. Explained imaging findings in detail. At this time due to his symptoms of decreased walking distance and needing to lean forward to relieve his pain in his legs, explained to him the etiology of lumbar stenosis with neurogenic claudicatio (more content not included)... Normal [facility] No Panel Informationon 10-07 IMPRESSION: Joint effusion. No acute osseous abnormality or significant degenerative change. WEIGHTBEARING KNEE SURVEY, SINGLE VIEW: INDICATION: Pain FINDINGS: Joint spaces are preserved. No chondrocalcinosis, erosive arthropathy or significant degenerative change. IMPRESSION: No osseous abnormality. LUMBAR SPINE SERIES 4 VIEWS: INDICATION: Right-sided sciatica FINDINGS: Counting reference: Lumbosacral junction. For the purposes of this report, L4-5 is considered the level of the iliac crest and assumed there are 5 lumbar-type vertebra. Anatomic variant: None. No fractures. The alignment is normal. Disc heights are preserved. Mild facet arthropathy in the lower lumbar spine. No spondylolisthesis. The sacroiliac joints are normal in appearance. Incidental small round metallic radiopaque foreign body within the soft tissues at the level of the left iliac bone. IMPRESSION: No acute osseous abnormality. Mild facet arthropathy in the lower lumbar spine. Incidental metallic foreign body Pocket Operator: MARIA GUADALUPE Transcribe Date/Time: Oct 07 2024 5:10A Dictated by : JIMENEZ SPENCER MD This examination was interpreted and the report reviewed and electronically signed by: JIMENEZ SPENCER MD on Oct 07 2024 5:14AM EST [facility] No Panel InformationOrdered By: [facility] Provider on 10-07-2024 [facility] XR Knee - bilateral APon * * *Final Report* * * DATE OF EXAM: Oct 04 2024 4:38PM LDX 5213 - XR KNEE SURVEY 1V AP ANKITA / PROCEDURE REASON: multiple diagnoses * * * * Physician Interpretation * * * * XR KNEE 2V AP/LAT RT, XR KNEE SURVEY 1V AP ANKITA, XR LUMBAR PARS 4V AP/LAT/OBL X2 Ordering Physician: PAGE BLANDON RIGHT KNEE 2 VIEWS. Clinical Statement: Right knee pain FINDINGS: The alignment and bone mineralization are normal. No chondrocalcinosis, erosive arthropathy or degenerative change. There is a joint effusion present. [facility] Provider, [facility] [place] - 10/07/2024 * * *Final Report* * * DATE OF EXAM: Oct 04 2024 4:38PM LDX 5213 - XR KNEE SURVEY 1V AP ANKITA / PROCEDURE REASON: multiple diagnoses * * * * Physician Interpretation * * * * XR KNEE 2V AP/LAT RT, XR KNEE SURVEY 1V AP ANKITA, XR LUMBAR PARS 4V AP/LAT/OBL X2 Ordering Physician: PAGE BLANDON RIGHT KNEE 2 VIEWS. Clinical Statement: Right knee pain FINDINGS: The alignment and bone mineralization are normal. No chondrocalcinosis, erosive arthropathy or degenerative change. There is a joint effusion present. IMPRESSION IMPRESSION: Joint effusion. No acute osseous abnormality or significant degenerative change. WEIGHTBEARING KNEE SURVEY, SINGLE VIEW: INDICATION: Pain FINDINGS: Joint spaces are preserved. No chondrocalcinosis, erosive arthropathy or significant degenerative change. IMPRESSION: No osseous abnormality. LUMBAR SPINE SERIES 4 VIEWS: INDICATION: Right-sided sciatica FINDINGS: Counting reference: Lumbosacral junction. For the purposes of this report, L4-5 is considered the level of the iliac crest and assumed there are 5 lumbar-type vertebra. Anatomic variant: None. No fractures. The alignment is normal. Disc heights are preserved. Mild facet arthropathy in the lower lumbar spine. No spondylolisthesis. The sacroiliac joints are normal in appearance. Incidental small round metallic radiopaque foreign body within the soft tissues at the level of the left iliac bone. IMPRESSION: No acute osseous abnormality. Mild facet arthropathy in the lower lumbar spine. Incidental metallic foreign body Pocket Operator: MARIA GUADALUPE Transcribe Date/Time: Oct 07 2024 5:10A Dictated by : JIMENEZ SPENCER MD This examination was interpreted and the report reviewed and electronically signed by: JIMENEZ SPENCER MD on Oct 07 2024 5:14AM EST [facility] XR Knee - right AP and Later vanesa 10-07-2024 * * *Final Report* * * DATE OF EXAM: Oct 04 2024 4:38PM LDX 5207 - XR KNEE 2V AP/LAT RT / PROCEDURE REASON: multiple diagnoses * * * * Physician Interpretation * * * * XR KNEE 2V AP/LAT RT, XR KNEE SURVEY 1V AP ANKITA, XR LUMBAR PARS 4V AP/LAT/OBL X2 Ordering Physician: PAGE BLANDON RIGHT KNEE 2 VIEWS. Clinical Statement: Right knee pain FINDINGS: The alignment and bone mineralization are normal. No chondrocalcinosis, erosive arthropathy or degenerative change. There is a joint effusion present. [facility] Provider, [facility] - 10/07/2024 * * *Final Report* * * DATE OF EXAM: Oct 04 2024 4:38PM LDX 5207 - XR KNEE 2V AP/LAT RT / PROCEDURE REASON: multiple diagnoses * * * * Physician Interpretation * * * * XR KNEE 2V AP/LAT RT, XR KNEE SURVEY 1V AP ANKITA, XR LUMBAR PARS 4V AP/LAT/OBL X2 Ordering Physician: PAGE BLANDON RIGHT KNEE 2 VIEWS. Clinical Statement: Right knee pain FINDINGS: The alignment and bone mineralization are normal. No chondrocalcinosis, erosive arthropathy or degenerative change. There is a joint effusion present. IMPRESSION IMPRESSION: Joint effusion. No acute osseous abnormality or significant degenerative change. WEIGHTBEARING KNEE SURVEY, SINGLE VIEW: INDICATION: Pain FINDINGS: Joint spaces are preserved. No chondrocalcinosis, erosive arthropathy or significant degenerative change. IMPRESSION: No osseous abnormality. LUMBAR SPINE SERIES 4 VIEWS: INDICATION: Right-sided sciatica FINDINGS: Counting reference: Lumbosacral junction. For the purposes of this report, L4-5 is considered the level of the iliac crest and assumed there are 5 lumbar-type vertebra. Anatomic variant: None. No fractures. The alignment is normal. Disc heights are preserved. Mild facet arthropathy in the lower lumbar spine. No spondylolisthesis. The sacroiliac joints are normal in appearance. Incidental small round metallic radiopaque foreign body within the soft tissues at the level of the left iliac bone. IMPRESSION: No acute osseous abnormality. Mild facet arthropathy in the lower lumbar spine. Incidental metallic foreign body Pocket Operator: MARIA GUADALUPE Transcribe Date/Time: Oct 07 2024 5:10A Dictated by : JIMENEZ SPENCER MD This examination was interpreted and the report reviewed and electronically signed by: JIMENEZ SPENCER MD on Oct 07 2024 5:14AM EST [facility] XR Lumbar spine AP and Later al and obliqueon 10-07-2024 * * *Final Report* * * DATE OF EXAM: Oct 04 2024 4:38PM LDX 5233 - XR LUMBAR PARS 4V AP/LAT/OBL X2 / PROCEDURE REASON: Sciatica, right side * * * * Physician Interpretation * * * * XR KNEE 2V AP/LAT RT, XR KNEE SURVEY 1V AP ANKITA, XR LUMBAR PARS 4V AP/LAT/OBL X2 Ordering Physician: PAGE BLANDON RIGHT KNEE 2 VIEWS. Clinical Statement: Right knee pain FINDINGS: The alignment and bone mineralization are normal. No chondrocalcinosis, erosive arthropathy or degenerative change. There is a joint effusion present. [facility] 10/07/2024 * * *Final Report* * * DATE OF EXAM: Oct 04 2024 4:38PM LDX 5233 - XR LUMBAR PARS 4V AP/LAT/OBL X2 / PROCEDURE REASON: Sciatica, right side * * * * Physician Interpretation * * * * XR KNEE 2V AP/LAT RT, XR KNEE SURVEY 1V AP ANKITA, XR LUMBAR PARS 4V AP/LAT/OBL X2 Ordering Physician: PAGE BLANDON RIGHT KNEE 2 VIEWS. Clinical Statement: Right knee pain FINDINGS: The alignment and bone mineralization are normal. No chondrocalcinosis, erosive arthropathy or degenerative change. There is a joint effusion present. IMPRESSION IMPRESSION: Joint effusion. No acute osseous abnormality or significant degenerative change. WEIGHTBEARING KNEE SURVEY, SINGLE VIEW: INDICATION: Pain FINDINGS: Joint spaces are preserved. No chondrocalcinosis, erosive arthropathy or significant degenerative change. IMPRESSION: No osseous abnormality. LUMBAR SPINE SERIES 4 VIEWS: INDICATION: Right-sided sciatica FINDINGS: Counting reference: Lumbosacral junction. For the purposes of this report, L4-5 is considered the level of the iliac crest and assumed there are 5 lumbar-type vertebra. Anatomic variant: None. No fractures. The alignment is normal. Disc heights are preserved. Mild facet arthropathy in the lower lumbar spine. No spondylolisthesis. The sacroiliac joints are normal in appearance. Incidental small round metallic radiopaque foreign body within the soft tissues at the level of the left iliac bone. IMPRESSION: No acute osseous abnormality. Mild facet arthropathy in the lower lumbar spine. Incidental metallic foreign body Pocket Operator: [facility]ITAL[facility]al[facility] Transcribe Date/Time: Oct 07 2024 5:10A Dictated by : JIMENEZ SPENCER MD This examination was interpreted and the report reviewed and electronically signed by: JIMENEZ SPENCER MD on Oct 07 2024 5:14AM EST [facility] CNOVon 10-04-2024 CNOV Office Visit (JEREMY PARRISH) PA CAMPA ([id number]) 1990 M Date Time Provider Department 10/04/24 3:40 PM PAGE BLANDON During your visit today, we recorded the following information about you: Temperature Pulse Respiration Blood pressure 98.1 degrees 107/minute 16/minute 124/70 Weight Height 95.3 kg 1.676 m Yessi Page Hernandez, DO 10/19/2024 9:09 PM Signed Subjective HPI Pt is here for f/u after being seen in the urgent care for right leg pain US was negative for DVT He continues to have pain in the right leg He would like to have xrays, and would like a note to return to work He has had pain in the right hip for about one year, but this pain has gotten much worse recently to the point that he is having trouble walking He put on his old boots today, thinking that his new boots were the cause of the pain, but the pain is the same Pain right now is 5/10 , when he is working is 10/10 Rubbing arthritis cream on it makes the pain better on his right knee He got Rx for steroids and flexeril from urgent care yesterday, and that helps a little Walking makes the pain worse, 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 21 tablet 0 predniSONE (DELTASONE) 10 mg tablet Take 4 tabs daily for 3 days, then 2 tabs daily for 3 days, then 1 tab daily for 3 days with food. 21 tablet 0 escitalopram oxalate (LEXAPRO) 20 mg tablet Take 1 tablet by mouth every afternoon. 30 tablet 4 multivit-min/folic/vit K/lycop (ONE-A-DAY MEN'S MULTIVITAMIN ORAL) Take 1 tablet by mouth once daily. No current facility-administered medications for this visit. ACTIVE PROBLEM LIST Obesity, Class I, Bmi 30-34.9 Redd (Generalized Anxiety Disorder) Social History Tobacco Use Smoking status: Former Types: Cigarettes Smokeless tobacco: Former Types: Chew Vaping Use Vaping status: Former Substance Use Topics Alcohol use: Not Currently Drug use: Never Family History Problem Relation Age of Onset Heart Attack Mother Hypertension Father Reviewed past medical history, family history and surgeries. All medications and supplements were reviewed with the patient. Review of Systems Constitutional: Negative for chills, diaphoresis, fever, malaise/fatigue and weight loss. HENT: Negative for ear pain and hearing loss. Eyes: Negative for blurred vision and double vision. Respiratory: Negative for cough and shortness of breath. Cardiovascular: Negative for chest pain, palpitations and leg swelling. Gastrointestinal: Negative for constipation, diarrhea and heartburn. Genitourinary: Negative for dysuria and frequency. Musculoskeletal: Positive for joint pain. Negative for back pain, falls and myalgias. Pain radiating to right lower extremity Skin: Negative for itching and rash. Neurological: Negative for dizziness, weakness and headaches. Endo/Heme/Allergies: Does not bruise/bleed easily. Psychiatric/Behavioral: Negative for depression and substance abuse. The patient does not have insomnia. Objective BP 124/70 Pulse 107 Temp 36.7 ?C (98.1 ?F) Resp 16 Ht 167.6 cm (5' 6) Wt 95.3 kg (210 lb) SpO2 98% BMI 33.89 kg/m? Physical Exam Constitutional: Appearance: Normal appearance. He is obese. HENT: Head: Normocephalic and atraumatic. Nose: Nose normal. Mouth/Throat: Mouth: Mucous membranes are moist. Dentition: Normal dentition. Eyes: General: Lids are normal. Extraocular Movements: Extraocular movements intact. Conjunctiva/sclera: Conjunctivae normal. Pupils: Pupils are equal, round, and reactive to light. Neck: Thyroid: No thyroid mass or thyromegaly. Vascular: No carotid bruit. Trachea: Phonation normal. Cardiovascular: Rate and Rhythm: Normal rate and regular rhythm. Heart sounds: Normal heart sounds. No murmur heard. No friction rub. No gallop. Pulmonary: Effort: Pulmonary effort is normal. Breath sounds: Normal breath sounds. No wheezing or rales. Abdominal: General: Bowel sounds are normal. There is no distension. Palpations: Abdomen is soft. There is no mass. Tenderness: There is no abdominal tenderness. Musculoskeletal: General: Swelling and tenderness (right knee medial joint line) present. Normal range of motion. Cervical back: Normal range of motion and neck supple. No edema. Lymphadenopathy: Cervical: No cervical adenopathy. (more content not included)... Normal [facility] No Panel Informationon 10-04 Radiology Study observation (narrative) [facility] XR KNEE 2V AP/LAT RTon 10-04 XR KNEE 2V AP/LAT RT * * *Final Report* * * DATE OF EXAM: Oct 04 2024 4:38PM LDX 5207 - XR KNEE 2V AP/LAT RT / PROCEDURE REASON: multiple diagnoses * * * * Physician Interpretation * * * * XR KNEE 2V AP/LAT RT, XR KNEE SURVEY 1V AP ANKITA, XR LUMBAR PARS 4V AP/LAT/OBL X2 Ordering Physician: PAGE BLANDON RIGHT KNEE 2 VIEWS. Clinical Statement: Right knee pain FINDINGS: The alignment and bone mineralization are normal. No chondrocalcinosis, erosive arthropathy or degenerative change. There is a joint effusion present. IMPRESSION: Joint effusion. No acute osseous abnormality or significant degenerative change. WEIGHTBEARING KNEE SURVEY, SINGLE VIEW: INDICATION: Pain FINDINGS: Joint spaces are preserved. No chondrocalcinosis, erosive arthropathy or significant degenerative change. IMPRESSION: No osseous abnormality. LUMBAR SPINE SERIES 4 VIEWS: INDICATION: Right-sided sciatica FINDINGS: Counting reference: Lumbosacral junction. For the purposes of this report, L4-5 is considered the level of the iliac crest and assumed there are 5 lumbar-type vertebra. Anatomic variant: None. No fractures. The alignment is normal. Disc heights are preserved. Mild facet arthropathy in the lower lumbar spine. No spondylolisthesis. The sacroiliac joints are normal in appearance. Incidental small round metallic radiopaque foreign body within the soft tissues at the level of the left iliac bone. IMPRESSION: No acute osseous abnormality. Mild facet arthropathy in the lower lumbar spine. Incidental metallic foreign body Pocket Operator: MARIA GUADALUPE Transcribe Date/Time: Oct 07 2024 5:10A Dictated by : JIMENEZ SPENCER MD This examination was interpreted and the report reviewed and electronically signed by: JIMENEZ SPENCER MD on Oct 07 2024 5:14AM EST [id number] Normal [facility] XR KNEE SURVEY 1V AP BILon 0 10-04-2024 XR KNEE SURVEY 1V AP ANKITA * * *Final Report* * * DATE OF EXAM: Oct 04 2024 4:38PM LDX 5213 - XR KNEE SURVEY 1V AP ANKITA / PROCEDURE REASON: multiple diagnoses * * * * Physician Interpretation * * * * XR KNEE 2V AP/LAT RT, XR KNEE SURVEY 1V AP ANKITA, XR LUMBAR PARS 4V AP/LAT/OBL X2 Ordering Physician: PAGE BLANDON RIGHT KNEE 2 VIEWS. Clinical Statement: Right knee pain FINDINGS: The alignment and bone mineralization are normal. No chondrocalcinosis, erosive arthropathy or degenerative change. There is a joint effusion present. IMPRESSION: Joint effusion. No acute osseous abnormality or significant degenerative change. WEIGHTBEARING KNEE SURVEY, SINGLE VIEW: INDICATION: Pain FINDINGS: Joint spaces are preserved. No chondrocalcinosis, erosive arthropathy or significant degenerative change. IMPRESSION: No osseous abnormality. LUMBAR SPINE SERIES 4 VIEWS: INDICATION: Right-sided sciatica FINDINGS: Counting reference: Lumbosacral junction. For the purposes of this report, L4-5 is considered the level of the iliac crest and assumed there are 5 lumbar-type vertebra. Anatomic variant: None. No fractures. The alignment is normal. Disc heights are preserved. Mild facet arthropathy in the lower lumbar spine. No spondylolisthesis. The sacroiliac joints are normal in appearance. Incidental small round metallic radiopaque foreign body within the soft tissues at the level of the left iliac bone. IMPRESSION: No acute osseous abnormality. Mild facet arthropathy in the lower lumbar spine. Incidental metallic foreign body Pocket Operator: PSCB Transcribe Date/Time: Oct 07 2024 5:10A Dictated by : JIMENEZ SPENCER MD This examination was interpreted and the report reviewed and electronically signed by: JIMENEZ SPENCER MD on Oct 07 2024 5:14AM EST [id number] Normal [facility] XR LUMBAR PARS 4V AP/LAT/OBL X2on 10-04-2024 XR LUMBAR PARS 4V AP/LAT/OBL X2 * * *Final Report* * * DATE OF EXAM: Oct 04 2024 4:38PM LDX 5233 - XR LUMBAR PARS 4V AP/LAT/OBL X2 / PROCEDURE REASON: Sciatica, right side * * * * Physician Interpretation * * * * XR KNEE 2V AP/LAT RT, XR KNEE SURVEY 1V AP ANKITA, XR LUMBAR PARS 4V AP/LAT/OBL X2 Ordering Physician: PAGE BLANDON RIGHT KNEE 2 VIEWS. Clinical Statement: Right knee pain FINDINGS: The alignment and bone mineralization are normal. No chondrocalcinosis, erosive arthropathy or degenerative change. There is a joint effusion present. IMPRESSION: Joint effusion. No acute osseous abnormality or significant degenerative change. WEIGHTBEARING KNEE SURVEY, SINGLE VIEW: INDICATION: Pain FINDINGS: Joint spaces are preserved. No chondrocalcinosis, erosive arthropathy or significant degenerative change. IMPRESSION: No osseous abnormality. LUMBAR SPINE SERIES 4 VIEWS: INDICATION: Right-sided sciatica FINDINGS: Counting reference: Lumbosacral junction. For the purposes of this report, L4-5 is considered the level of the iliac crest and assumed there are 5 lumbar-type vertebra. Anatomic variant: None. No fractures. The alignment is normal. Disc heights are preserved. Mild facet arthropathy in the lower lumbar spine. No spondylolisthesis. The sacroiliac joints are normal in appearance. Incidental small round metallic radiopaque foreign body within the soft tissues at the level of the left iliac bone. IMPRESSION: No acute osseous abnormality. Mild facet arthropathy in the lower lumbar spine. Incidental metallic foreign body Pocket Operator: [facility] Transcribe Date/Time: Oct 07 2024 5:10A Dictated by : JIMENEZ SPENCER MD This examination was interpreted and the report reviewed and electronically signed by: JIMENEZ SPENCER MD on Oct 07 2024 5:14AM EST [id number] Normal [facility] CNOVon 10-02-2024 CNOV Office Visit ([facility] ) PA CAMPA ([id number]) 1990 M Date Time Provider Department 10/02/24 8:45 AM KAROLINA JUARESJOYCE During your visit today, we recorded the following information about you: Temperature Pulse Respiration Blood pressure 98.1 degrees 84/minute 16/minute 122/80 Weight 92.6 kg Karolina Juares, SERVICE ATTENDANT [employer].SHIPPING AND RECEIVING CLERK 10/02/2024 12:50 PM Signed This note was created using [employer]oo[employer]. Subjective Pa Campa is a 34 year old male. 34 year old male with PMH anxiety presents for leg complaints. 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 The history is provided by the patient. No pediatric speech language pathologist was used. Right knee injury: No Date: 09/18/2024 Right knee condition: Acute Right knee severity: Mild Right knee progression: Stable Patient reports that right knee feels stable. Patient reports feeling right knee not locking, not popping and not catching. Right knee aggravating factors: Regular daily ambulation. Right knee alleviating factors: Rest. History reviewed. No pertinent past medical history. PAST SURGICAL HISTORY Procedure Laterality Date UNLISTED PROCEDURE HUMERUS/ELBOW Right 1996 reset bone in lower right arm ALLERGIES Patient has no known allergies. MEDICATIONS escitalopram oxalate (LEXAPRO) 20 mg tablet Take 1 tablet by mouth every afternoon. multivit-min/folic/vit K/lycop (ONE-A-DAY MEN'S MULTIVITAMIN ORAL) Take 1 tablet by mouth once daily. cyclobenzaprine (FLEXERIL) 10 mg tablet Take 1 tablet by mouth three times a day as needed for muscle spasm. predniSONE (DELTASONE) 10 mg tablet Take 4 tabs daily for 3 days, then 2 tabs daily for 3 days, then 1 tab daily for 3 days with food. FAMILY HISTORY Problem Relation Age of Onset Heart Attack Mother Hypertension Father Social History Tobacco Use Smoking status: Former Types: Cigarettes Smokeless tobacco: Former Types: Chew Vaping Use Vaping status: Former Substance Use Topics Alcohol use: Not Currently Drug use: Never Review of Systems Constitutional: Negative for activity change, appetite change, chills and diaphoresis. Eyes: Negative for pain, discharge and itching. Respiratory: Negative for apnea, choking and chest tightness. Cardiovascular: Negative for chest pain, palpitations and leg swelling. Gastrointestinal: Negative for abdominal pain, diarrhea, nausea and vomiting. Musculoskeletal: Negative for arthralgias and back pain. Right knee and right leg pain Skin: Negative for color change, pallor, rash and wound. Allergic/Immunologic: Negative for environmental allergies, food allergies and immunocompromised state. Neurological: Negative for dizziness, facial asymmetry and headaches. Hematological: Negative for adenopathy. Does not bruise/bleed easily. Psychiatric/Behavioral: Negative for agitation and behavioral problems. Objective BP 122/80 Pulse 84 Temp 36.7 ?C (98.1 ?F) (Tympanic) Resp 16 Wt 92.6 kg (204 lb 2.3 oz) SpO2 98% BMI 32.95 kg/m? Physical Exam Vitals and nursing note reviewed. Constitutional: General: He is not in acute distress. Appearance: Normal appearance. He is not ill-appearing, toxic-appearing or diaphoretic. HENT: Head: Normocephalic and atraumatic. Right Ear: External ear normal. Left Ear: External ear normal. Nose: Nose normal. No congestion or rhinorrhea. Mouth/Throat: Mouth: Mucous membranes are moist. Pharynx: Oropharynx is clear. No oropharyngeal exudate or posterior oropharyngeal erythema. Eyes: General: Right eye: No discharge. Left eye: No discharge. Extraocular Movements: Extraocular movements intact. Conjunctiva/sclera: Conjunctivae normal. Pupils: Pupils are equal, round, and reactive to light. Cardiovascular: Rate and Rhythm: Normal rate and regular rhythm. Pulses: Normal pulses. Heart sounds: Normal heart sounds. No murmur heard. No friction rub. No gallop. Pulmonary: Effort: Pulmonary effort is normal. No respiratory distress. Breath sounds: Normal breath sounds. No stridor. No wheezing, rhonchi or rales. Chest: Chest wall: No tenderness. Abdominal: General: Abdomen is flat. There is no distension. Palpations: Abdomen is soft. There is no mass. Tenderness: There is no abdominal tenderness. There is no guarding or rebound. Hernia: No hernia is present. Musculoskeletal: General: No swelling, tenderness, deformity or signs of injury. Normal range of motion. Cervical sarah (more content not included)... Normal [facility] US DVT LOWER RTon 10-02-2024 US DVT LOWER RT * * *Final Report* * * DATE OF EXAM: Oct 02 2024 10:12AM LDU 1007 - US DVT LOWER RT / PROCEDURE REASON: Right leg pain * * * * Physician Interpretation * * * * EXAMINATION: RIGHT LOWER EXTREMITY DEEP VENOUS ULTRASOUND WITH DOPPLER IMAGING CLINICAL HISTORY: TECHNIQUE: Grayscale with compression maneuvers, color Doppler and spectral Doppler imaging of the right proximal deep veins was performed. Grayscale with compression maneuvers of the peroneal and posterior tibial veins was performed. The right great and small saphenous veins were evaluated at their insertion to the deep system. The contralateral common femoral vein was imaged for comparison. Images were obtained and stored in a permanent archive. MQ: USLER_1 COMPARISON: None RESULT: RIGHT LOWER EXTREMITY PROXIMAL DEEP VEINS Distal External Iliac, Common Femoral and proximal Profunda Veins: Compression: Normal Doppler: Normal, spontaneous respirophasic flow. Normal response to augmentation. Femoral vein: Compression: Normal Doppler: Normal, spontaneous flow. Normal response to augmentation. Popliteal vein: Compression: Normal Doppler: Normal, spontaneous flow. Normal response to augmentation. CALF DEEP VEINS Peroneal veins: Normal compression. Posterior tibial veins: Normal compression. Gastrocnemius and Soleal veins: Not imaged. SUPERFICIAL VEINS Great saphenous: Patent at insertion into common femoral vein Small Saphenous: Not imaged. LEFT LOWER EXTREMITY (FOR COMPARISON) Common Femoral Vein: Compression: Normal Doppler: Normal, spontaneous respirophasic flow. Normal response to augmentation. IMPRESSION: Negative study for proximal DVT in the right lower extremity. Negative study for calf DVT in the right lower extremity. Negative study for superficial thrombophlebitis in the imaged segments of the right lower extremity. Pocket Operator: MARIA GUADALUPE Transcribe Date/Time: Oct 02 2024 10:47A Dictated by : TITO BARLOW MD This examination was interpreted and the report reviewed and electronically signed by: TITO BARLOW MD on Oct 02 2024 10:52AM EST [id number] Normal [facility] US Lower extremity vein - ri sharmaine 10-02-2024 IMPRESSION: Negative study for proximal DVT in the right lower extremity. Negative study for calf DVT in the right lower extremity. Negative study for superficial thrombophlebitis in the imaged segments of the right lower extremity. Pocket Operator: PSCB Transcribe Date/Time: Oct 02 2024 10:47A Dictated by : TITO BARLOW MD This examination was interpreted and the report reviewed and electronically signed by: TITO BARLOW MD on Oct 02 2024 10:52AM EST [employer] * * *Final Report* * * DATE OF EXAM: Oct 02 2024 10:12AM LDU 1007 - US DVT LOWER RT / PROCEDURE REASON: Right leg pain * * * * Physician Interpretation * * * * EXAMINATION: RIGHT LOWER EXTREMITY DEEP VENOUS ULTRASOUND WITH DOPPLER IMAGING CLINICAL HISTORY: TECHNIQUE: Grayscale with compression maneuvers, color Doppler and spectral Doppler imaging of the right proximal deep veins was performed. Grayscale with compression maneuvers of the peroneal and posterior tibial veins was performed. The right great and small saphenous veins were evaluated at their insertion to the deep system. The contralateral common femoral vein was imaged for comparison. Images were obtained and stored in a permanent archive. MQ: USLER_1 COMPARISON: None RESULT: RIGHT LOWER EXTREMITY PROXIMAL DEEP VEINS Distal External Iliac, Common Femoral and proximal Profunda Veins: Compression: Normal Doppler: Normal, spontaneous respirophasic flow. Normal response to augmentation. Femoral vein: Compression: Normal Doppler: Normal, spontaneous flow. Normal response to augmentation. Popliteal vein: Compression: Normal Doppler: Normal, spontaneous flow. Normal response to augmentation. CALF DEEP VEINS Peroneal veins: Normal compression. Posterior tibial veins: Normal compression. Gastrocnemius and Soleal veins: Not imaged. SUPERFICIAL VEINS Great saphenous: Patent at insertion into common femoral vein Small Saphenous: Not imaged. LEFT LOWER EXTREMITY (FOR COMPARISON) Common Femoral Vein: Compression: Normal Doppler: Normal, spontaneous respirophasic flow. Normal response to augmentation. [facility] RADIOLOGY SYNGO Provider, [facility] - 10/02/2024 * * *Final Report* * * DATE OF EXAM: Oct 02 2024 10:12AM LDU 1007 - US DVT LOWER RT / PROCEDURE REASON: Right leg pain * * * * Physician Interpretation * * * * EXAMINATION: RIGHT LOWER EXTREMITY DEEP VENOUS ULTRASOUND WITH DOPPLER IMAGING CLINICAL HISTORY: TECHNIQUE: Grayscale with compression maneuvers, color Doppler and spectral Doppler imaging of the right proximal deep veins was performed. Grayscale with compression maneuvers of the peroneal and posterior tibial veins was performed. The right great and small saphenous veins were evaluated at their insertion to the deep system. The contralateral common femoral vein was imaged for comparison. Images were obtained and stored in a permanent archive. MQ: USLER_1 COMPARISON: None RESULT: RIGHT LOWER EXTREMITY PROXIMAL DEEP VEINS Distal External Iliac, Common Femoral and proximal Profunda Veins: Compression: Normal Doppler: Normal, spontaneous respirophasic flow. Normal response to augmentation. Femoral vein: Compression: Normal Doppler: Normal, spontaneous flow. Normal response to augmentation. Popliteal vein: Compression: Normal Doppler: Normal, spontaneous flow. Normal response to augmentation. CALF DEEP VEINS Peroneal veins: Normal compression. Posterior tibial veins: Normal compression. Gastrocnemius and Soleal veins: Not imaged. SUPERFICIAL VEINS Great saphenous: Patent at insertion into common femoral vein Small Saphenous: Not imaged. LEFT LOWER EXTREMITY (FOR COMPARISON) Common Femoral Vein: Compression: Normal Doppler: Normal, spontaneous respirophasic flow. Normal response to augmentation. IMPRESSION IMPRESSION: Negative study for proximal DVT in the right lower extremity. Negative study for calf DVT in the right lower extremity. Negative study for superficial thrombophlebitis in the imaged segments of the right lower extremity. Pocket Operator: PSCB Transcribe Date/Time: Oct 02 2024 10:47A Dictated by : TITO BARLOW MD This examination was interpreted and the report reviewed and electronically signed by: TITO BARLOW MD on Oct 02 2024 10:52AM EST [facility] Radiology Study observation (narrative) [facility] US Lower extremity vein - ri ghtOrdered By: [facility] Provider on 10-02-2024 [facility] BMPon 06-30-2024 Anion gap [Moles/Vol] 16 mmol/L Normal 6-16 [facility] Comment on above: Performed By: #### 2 [id number] #### [facility] [address] [place] [address] Calcium [Mass/Vol] 8.5 mg/dL Low 8.9-11.1 [facility] Comment on above: Performed By: #### 2 [id number] #### [facility] [address] [place] [address] Chloride [Moles/Vol] 106 mmol/L Normal 101-111 [facility] Comment on above: Performed By: #### 2 [id number] #### [facility] [address] [place] [address] CO2 [Moles/Vol] 22 mmol/L Normal 21-31 [facility] Comment on above: Performed By: #### 2 [id number] #### [facility] [address] [place] [address] Creatinine [Mass/Vol] 1.2 mg/dL Normal 0.5-1.3 [facility] Comment on above: Performed By: #### 2 [id number] #### [facility] [address] [place] [address] Glucose [Mass/Vol] 126 mg/dL Normal 55-199 [facility] Comment on above: Performed By: #### 2 [id number] #### [facility] [address] [place] [address] Potassium [Moles/Vol] 3.9 mmol/L Normal 3.5-5.3 [facility] Comment on above: Performed By: #### 2 [id number] #### [facility] [address] [place] [address] Sodium [Moles/Vol] 140 mmol/L Normal 135-145 [facility] Comment on above: Performed By: #### 2 [id number] #### [facility] [address] [place] [address] Urea nitrogen [Mass/Vol] 12 mg/dL Normal 5-21 [facility] Comment on above: Performed By: #### 2 [id number] #### [facility] [address] [place] [address] Urea nitrogen/Creatinine [Mass ratio] 10 No Units Normal 06-24 [facility] Comment on above: Performed By: #### 2 [id number] #### [facility] [address] [place] [address] CT Abdomen/Pelvis w/o Contra ston 06-30-2024 CT Abdomen/Pelvis w/o Contrast Exam Date/Time: 06/30/2024 00:29 EDT Reason for Exam: right flank;Pain Report IMPRESSION: NO ACUTE ABDOMINOPELVIC PROCESS. EXAM: CT Abdomen/Pelvis w/o Contrast History: Right-sided abdominal pain. Technique: Multiple contiguous axial images were obtained of the abdomen and pelvis from the level of the lung bases through the ischial tuberosities without contrast. Multiplanar reformats were obtained. Unless otherwise stated, incidental findings identified in this report do not require routine follow-up imaging. Comparison: None available Findings: Lung bases are clear. Lack of intravenous contrast precludes optimal evaluation of the abdominal and pelvic viscera. The unenhanced liver, gallbladder, spleen, stomach, pancreas, and adrenal glands are within normal limits. The unenhanced kidneys appear within normal limits. No urinary tract calculi or hydronephrosis. Urinary bladder is well distended. Abdominal aorta is nonaneurysmal. No retroperitoneal or abdominal/pelvic lymphadenopathy. No small bowel obstruction. No overt colonic mass or pericolonic inflammation. Appendix is not visualized. No findings of acute appendicitis. No free fluid or free air. No acute osseous abnormality. All CT scans at this facility use dose modulation, iterative reconstruction, and/or weight based dosing when appropriate to reduce radiation dose to as low as reasonably achievable. Report Ordering Provider: Otis Giraldo FINAL REPORT Dictated: 06/30/2024 9:15 am Steven Calvillo DO Signed (Electronic Signature): 06/30/2024 9:15 am Signed by: Steven Calvillo DO Transcribed by: KIRAN Technologist: PIPPA Technical Comments Rectal Contrast Given? No Oral contrast amount in ml's: 0 Normal [facility] ED Clinical Summaryon 2023 ED Clinical Summary ED Clinical Summary [address] [address] ED Clinical Summary Person Information Name: PA CAMPA/Natasha Age: 33 Years : 1990 Sex: Male Language: Sinhala PCP: PAGE BLANDON Marital Status: Visit Id: Visit Reason: Medical problem - minor; Abdominal pain; PAIN IN RT SIDE Speciality: Acuity: 3 Enc Type: Emergency Med Service: Emergency Arrival: 06/29/2024 21:54:07 Discharge: 06/30/2024 03:12:15 LOS: 000 05:18 Checkin: 06/29/2024 21:54:07 Checkout: 06/30/2024 03:12:15 Dispo Type: Home (Routine DC) EVENTS: Event Name Event Status Request Date/Time Start Date/Time Complete Date/Time Arrive Complete 06/29/2024 21:54:07 06/29/2024 21:54:07 06/29/2024 21:54:07 Document Home Meds Request 06/29/2024 21:54:07 Triage Complete 06/29/2024 21:54:07 06/29/2024 22:03:47 06/29/2024 22:03:47 Registration Complete 06/29/2024 22:06:47 06/29/2024 22:06:47 06/29/2024 22:06:47 Reg Complete Request 06/29/2024 22:06:47 Reg Bed Request Complete 06/29/2024 22:06:47 06/29/2024 22:06:47 06/29/2024 22:06:47 EKG Complete 06/29/2024 23:26:01 06/30/2024 00:02:51 Pending Labs Complete 06/29/2024 23:26:01 06/30/2024 00:18:29 Lab Complete 06/29/2024 23:26:01 06/30/2024 00:11:35 Bed Assign Complete 06/29/2024 23:31:27 06/29/2024 23:31:27 06/29/2024 23:31:27 Dr Exam Complete 06/29/2024 23:31:27 06/29/2024 23:45:45 06/29/2024 23:45:45 RN Exam Complete 06/29/2024 23:31:27 06/29/2024 23:46:58 06/29/2024 23:46:58 Registration Request 06/29/2024 23:45:45 Pending Labs Complete 06/29/2024 23:46:21 06/29/2024 23:46:21 06/30/2024 00:11:35 Lab Complete 06/29/2024 23:46:21 06/29/2024 23:46:21 06/30/2024 00:11:35 CT Complete 06/30/2024 00:16:43 06/30/2024 00:19:20 06/30/2024 00:29:17 Discharge Complete 06/30/2024 02:54:47 06/30/2024 03:12:23 06/30/2024 03:12:23 Transfer Complete 06/30/2024 03:12:23 06/30/2024 03:12:23 06/30/2024 03:12:23 [address] [facility] [id number] [facility] DOC NOTES: MEDICAL INFORMATION: Prescriptions Given: New Medications [id number], [address], [place] [id number], [phone] cyclobenzaprine (cyclobenzaprine 10 mg Tab) 1 Tablets By Mouth 3 times a day as needed Muscle pain for 5 Days. Refills: 0. naproxen (naproxen 500 mg Tab) 1 Tablets By Mouth 2 times a day as needed for pain. Refills: 0. PATIENT EDUCATION INFORMATION: Instructions: Musculoskeletal Pain Follow up: With: Address: When: PAGE BLANDON [address] [place], [place] [phone] Business (1) In 3 days 07/03/2024 Comments: Call the office of your primary care doctor to arrange for follow-up within the above-stated timeframe. Follow-up with your primary care doctor about this ED visit. You should review your labs, imaging, and diagnoses from this ED visit with your primary care physician. There are occasionally non-emergent findings that require additional follow-up after your ED visit. If you were prescribed medications you should discuss possible side-effects and drug interactions with your pharmacist. Call 911 or go to the nearest Emergency Department if you develop any new or worsening symptoms. Seek immediate medical attention if you develop: worsening abdominal pain, new or worsening nausea, new or worsening vomiting, new or worsening diarrhea, chest pain, shortness of breath, pain with urination, problems urinating, fever, chills, weakness, or any new or worsening symptoms. DIAGNOSIS: Musculoskeletal pain Normal [facility] ED Note-Physicianon 06-30-20 ED Note-Physician ED Note-Physician Basic Information Time Seen: Otis Giraldo DO 06/29/2024 23:45 Chief Complaint (R) sided upper ABD pain for 3 days. No N/V/D. History of Present Illness 33-year-old male to the emergency department chief complaint of pain in his right side rating down to his right groin. Is been ongoing for 3 days. No nausea vomiting diarrhea. Urinating normally. No hematuria. No history of kidney stones. Pain worse with movement. No injuries. Review of Systems A 10 point review of systems is negative except as noted above. Medical and Surgical History: Reviewed and noted Social history: Lives at home Tobacco: Denies Physical Exam Vitals & Measurements T: 36.4 ???C(Oral) HR: 98(Monitored) RR: 16 BP: 121/80 SpO2: 99% HT: 170.1 cm WT: 91.9 kg BMI: 31.76 VITALS: I have reviewed the triage vital signs. GENERAL: Well developed, well appearing adult in no acute distress. NEURO: Alert and oriented. Moves all extremities. Face is symmetric and expressive. EYES: PERRL. No scleral icterus or conjunctival injection. No discharge. HENT: Normocephalic, atraumatic. Hearing is grossly intact. Nares grossly patent and without discharge. Mucous membranes moist. NECK: No JVD. Patient moves neck without restriction. CARDIO: Rhythm regular. Normal rate. No murmur, rub, or gallop. Pulses equal bilaterally in the upper and lower extremity. No lower extremity edema. PULM: Lungs clear to auscultation in all yu. No wheezes, rales, or rhonchi. No conversational dyspnea. No splinting, stridor, or accessory muscle use. GI/: Abdomen is soft and non-tender. Normoactive bowel sounds. EXTREMITIES: Symmetric muscle bulk. No joint swelling. No clubbing, cyanosis, or deformity. SKIN: Warm and dry. Normal turgor. No rash or lesions appreciated. PSYCH: Mood, affect, and interaction is appropriate to the setting. Medical Decision Making 33-year-old male to the emergency department chief complaint of right side abdominal pain. Vital stable, the patient is afebrile. He declines any pain medication. Labs and CT ordered. Lab work reviewed and noted. No major abnormalities. EKG without acute findings. CT scan without acute findings. Suspect musculoskeletal etiology. Patient agrees with plan for Flexeril and naproxen. Follow-up with PCP. Return precautions were discussed. All questions were answered. The patient was discharged home. Assessment/Plan Musculoskeletal pain (M79.18: Myalgia, other site) Orders: cyclobenzaprine, 10 mg = 1 tab(s), Oral, TID, PRN Muscle pain, X 5 day(s), # 15 tab(s), Refills(s) 0, [id number], 170.1, cm, 06/29/24 22:03:00 EDT, Height/Length Dosing, 91.9, kg, 06/29/24 22:03:00 EDT, Weight Dosing naproxen, 500 mg = 1 tab(s), Oral, BID, PRN for pain, # 20 tab(s), Refills(s) 0, Pharmacy: [id number], 170.1, cm, 06/29/24 22:03:00 EDT, Height/Length Dosing, 91.9, kg, 06/29/24 22:03:00 EDT, Weight Dosing Basic Metabolic Panel CBC w/ Auto Diff CT Abdomen/Pelvis w/o Contrast ECG 12 Lead Adult eGFR Hepatic Function Panel Lipase Level Troponin 0 Hr. Disposition Plan Patient Discharge Condition Stable Home Discharge Prescription List Prescriptions cyclobenzaprine 10 mg Tab, 10 mg= 1 tab(s), Oral, TID, PRN naproxen 500 mg Tab, 500 mg= 1 tab(s), Oral, BID, PRN Follow-up With When Contact Information PAGE BLANDON In 3 days 07/03/[address] [place] [id number] [phone] [facility] (1) Additional Instructions: Call the office of your primary care doctor to arrange for follow-up within the above-stated timeframe. Follow-up with your primary care doctor about this ED visit. You should review your labs, imaging, and diagnoses from this ED visit with your primary care physician. There are occasionally non-emergent findings that require additional follow-up after your ED visit. If you were prescribed medications you should discuss possible side-effects and drug interactions with your pharmacist. Call 911 or go to the nearest Emergency Department if you develop any new or worsening symptoms. Seek immediate medical attention if you develop: worsening abdominal pain, new or worsening nausea, new or worsening vomiting, new or worsening diarrhea, chest pain, shortness of breath, pain with urination, problems urinating, fever, chills, weakness, or any new or worsening symptoms. Patient Education Musculoskeletal Pain Problem List/Past Medical History Ongoing No qualifying data Historical Arm fracture Medications Inpatient No active inpatient medications Home cyclobenzaprine 10 mg Tab, 10 mg= 1 tab(s), Oral, TID, PRN naproxen 500 mg Tab, 500 mg= 1 tab(s), Oral, BID, PRN Allergies No Known Medication Allergies Social History Alcohol - High Risk, 06/29/2024 Current, Liquor, Several times per day, 06/29/2024 Substance Abuse - Denies Substance Abuse, 06/29/2024 Tobacco - Denies Tobacco Use, 06/29/2024 Former smoker, quit more than 30 days ago Toba (more content not included)... Normal [facility] Comment on above: Result Comment: Elec tronically Signed By: Otis Giraldo DO\.br\Date and Time Signed: 06/30/24 03:51 EDT ED Patient Summaryon ED Patient Summary ED Patient Summary [place] [id number] Patient Discharge Instructions Person Information Name: PA CAMPA Age: 33 Years Arrival Date: 06/29/2024 21:54:07 Discharge Diagnosis: Musculoskeletal pain Primary Care Physician: PAGE BLANDON Provider Information Primary Provider: Otis Giraldo DO Advanced Rfid Specialist:None The exam and treatment you received in the Emergency Department were for an urgent problem and are not intended as complete care. It is important that you follow up with a doctor, nurse practitioner, or physician???s customer assistant for ongoing care. If your symptoms become worse or you do not improve as expected and you are unable to reach your usual health care provider, you should return to the Emergency Department. We are available 24 hours a day. PA CAMPA has been given the following list of patient education materials, prescriptions and follow-up instructions: Follow-up Instructions: With: Address: When: PAGE BLANDON [address] [place], [place] [id number] [phone] [facility] ([employer] In 3 days 07/03/2024 Comments: Call the office of your primary care doctor to arrange for follow-up within the above-stated timeframe. Follow-up with your primary care doctor about this ED visit. You should review your labs, imaging, and diagnoses from this ED visit with your primary care physician. There are occasionally non-emergent findings that require additional follow-up after your ED visit. If you were prescribed medications you should discuss possible side-effects and drug interactions with your pharmacist. Call 911 or go to the nearest Emergency Department if you develop any new or worsening symptoms. Seek immediate medical attention if you develop: worsening abdominal pain, new or worsening nausea, new or worsening vomiting, new or worsening diarrhea, chest pain, shortness of breath, pain with urination, problems urinating, fever, chills, weakness, or any new or worsening symptoms. In the event that this physician does not participate in your insurance network, please consult with your insurance company to find a nearby participating provider. Patient Education Materials: Musculoskeletal Pain A MESSAGE TO ALL PATIENTS REGARDING OPIOIDS PRESCRIPTION OPIOIDS: WHAT YOU NEED TO KNOW Prescription opioids can be used to help relieve [id number] pain and are often prescribed following a surgery or injury, or for certain health conditions. These medications can be an important part of the treatment but also come with serious risks. It is important to work with your healthcare provider to make sure you are getting the safest, most effective care. WHAT ARE THE RISKS AND SIDE EFFECTS OF OPIOID USE? Prescription opioids carry serious risks of addiction and overdose, especially with prolonged use. An opioid overdose, often marked by slowed breathing, can cause sudden . The use of prescription opioids can have a number of side effects as well, even when taken as directed: ??? Tolerance???meaning you might need to take more of the medication for the same pain relief ??? Physical dependence???meaning you have symptoms of withdrawal when a medication is stopped ??? Increased sensitivity to pain ??? Constipation ??? Nausea, vomiting, and dry mouth ??? Sleepiness and dizziness ??? Confusion ??? Depression ??? Low levels of testosterone that can result in lower sex drive, energy, and strength ??? Itching and sweating RISKS ARE GREATER WITH: ??? History of drug misuse, substance use disorder, or overdose ??? Mental health conditions (such as depression or anxiety) ??? Sleep apnea ??? Older age (65 years and older) ??? Avoid alcohol while taking prescription opioids. Also, unless specifically advised by your health care provider, medications to avoid include: ??? Benzodiazepines (such as Xanax or Valium) ??? Muscle relaxants (such as Soma or Flexeril) ??? Hypnotics (such as Ambien or Lunesta) ??? Other prescription opioids KNOW YOUR OPTIONS Talk to your health care provider about ways to manage your pain that don???t involve prescription opioids. Some of these options may actually work better and have fewer risks and side effects. Options may include: ??? Pain relievers such as acetaminophen, ibuprofen, and naproxen ??? Some medication that are also used for depression or seizures ??? Physical therapy and exercise ??? Cognitive behavioral therapy, a psychological, goal-directed approach, in which patients learn how to modify physical, behavioral, and emotional triggers of pain and stress. IF YOU ARE PRESCRIBED OPIOIDS FOR PAIN: ??? Never take opioids in greater amounts or more often than prescribed. ??? Follow up with your primary health care provider. o Work together to create a plan on how to ma (more content not included)... Normal [facility] Hep Func Panelon 06-30-2024 Albumin [Mass/Vol] 4.5 g/dL Normal 3.3-5.0 [facility] Comment on above: Performed By: #### 2 [id number] #### [facility] [address] [place] [address] Albumin/Globulin (S) [Mass conc ratio] 1.4 Normal 1.1-2.2 [facility] Comment on above: Performed By: #### 2 [id number] #### [facility] [address] [place] [address] ALP [Catalytic activity/Vol] 50 Int._Unit/L Normal 21-98 [facility] Comment on above: Performed By: #### 2 [id number] #### [facility] [address] [place] [address] ALT No additional P-5'-P [Catalytic activity/Vol] 75 Int._Unit/L High 6-46 [facility] Comment on above: Performed By: #### 2 [id number] #### [facility] [address] [place] [address] AST [Catalytic activity/Vol] 39 Int._Unit/L Normal 5-43 [facility] Comment on above: Performed By: #### 2 [id number] #### [facility] [address] [place] [address] Bilirubin [Mass/Vol] 0.3 mg/dL Normal 0.0-1.1 [facility] Comment on above: Performed By: #### 2 [id number] #### [facility] [address] [place] [address] Bilirubin.direct [Mass/Vol] 0.1 mg/dL Normal 0.0-0.4 [facility] Comment on above: Performed By: #### 2 [id number] #### [facility] [address] [place] [address] Bilirubin.indirect [Mass or moles/Vol] 0.2 mg/dL Normal 0.1-0.9 [facility] Comment on above: Performed By: #### 2 [id number] #### [facility] [address] [place] [address] Globulin (S) [Mass/Vol] 3.3 g/dL Normal 1.4-4.0 [facility] Comment on above: Performed By: #### 2 [id number] #### [facility] [address] [place] [address] Protein [Mass/Vol] 7.8 g/dL Normal 6.0-7.8 [facility] Comment on above: Performed By: #### 2 [id number] #### [facility] [address] [place] [address] Lipase Levelon 06-30-2024 Lipase [Catalytic activity/Vol] 21 U/L Normal 13-58 [facility] Comment on above: Performed By: #### 2 [id number] #### [facility] [address] [place] [address] Troponin 0 Hr.on 06-30-2024 Troponin HS 5.50 pg/mL Low 15.90-38.40 [facility] Comment on above: Result Comment: The 95% CI (Confidence Interval) PPV (Positive Predictive Value) for myocardial infarction in females is 38 pg/mL, in males 51 pg/mL. The results should be used in conjunction with clinical conditions of myocardial infarction. (Access High Sensitivity Troponin I Instructions For Use, Susie Shannon, April 2018) Performed By: #### 1 [id number] #### [facility] [address] [place] [address] eGFRon 06-30-2024 eGFR 81 mL/min/1.73 m2 Normal >=59 [facility] Comment on above: Performed By: #### 1 [id number] #### [facility] [address] [place] [address] CBC w/ Auto Diffon 4 Basophils/100 WBC (Bld) 1.2 % Normal 0.0-2.0 [facility] Comment on above: Performed By: #### 2 [id number] #### [facility] [address] [place] [address] Basophils/Leukocytes Auto (Bld) [Pure # fraction] 0.1 E9/L Normal 0.0-0.2 [facility] Comment on above: Performed By: #### 2 [id number] #### [facility] [address] [place] [address] Eosinophils (Bld) [#/Vol] 0.0 E9/L Normal 0.0-0.5 [facility] Comment on above: Performed By: #### 2 [id number] #### [facility] [address] [place] [address] Eosinophils/100 WBC (Bld) 0.7 % Normal 0.0-8.0 [facility] Comment on above: Performed By: #### 2 [id number] #### [facility] [address] [place] [address] Erythrocyte distribution width (RBC) [Ratio] 13.5 % Normal 10.9-14.2 [facility] Comment on above: Performed By: #### 2 [id number] #### [facility] [address] [place] [address] Hematocrit (Bld) [Volume fraction] 42.8 % Normal 37.7-49.0 [facility] Comment on above: Performed By: #### 2 [id number] #### [facility] [address] [place] [address] Hemoglobin (Bld) [Mass/Vol] 14.8 g/dL Normal 13.5-17.5 [facility] Comment on above: Performed By: #### 2 [id number] #### [facility] [address] [place] [address] Lymphocytes (Bld) [#/Vol] 3.2 E9/L Normal 1.0-4.0 [facility] Comment on above: Performed By: #### 2 [id number] #### [facility] [address] [place] [address] Lymphocytes/100 WBC (Bld) 49.9 % Normal 14.0-50.0 [facility] Comment on above: Performed By: #### 2 [id number] #### [facility] [address] [place] [address] MCH (RBC) [Entitic mass] 33.6 pg Normal 27.0-34.0 [facility] Comment on above: Performed By: #### 2 [id number] #### [facility] [address] [place] [address] MCHC (RBC) [Mass/Vol] 34.5 g/dL Normal 31.4-36.0 [facility] Comment on above: Performed By: #### 2 [id number] #### [facility] [address] [place] [address] MCV (RBC) [Entitic vol] 97.4 fL Normal 80.0-100.0 [facility] Comment on above: Performed By: #### 2 [id number] #### [facility] [address] [place] [address] Monocytes (Bld) [#/Vol] 0.9 E9/L Normal 0.2-1.0 [facility] Comment on above: Performed By: #### 2 [id number] #### [facility] [address] [place] [address] Neutrophils (Bld) [#/Vol] 2.3 E9/L Normal 2.0-7.5 [facility] Comment on above: Performed By: #### 2 [id number] #### [facility] [address] [place] [address] Neutrophils/100 WBC (Bld) 35.0 % Low 36.0-75.0 [facility] Comment on above: Performed By: #### 2 [id number] #### [facility] [address] [place] [address] Platelet 259.0 E9/L Normal 150.0-500.0 [facility] Comment on above: Performed By: #### 2 [id number] #### [facility] [address] [place] [address] Platelet mean volume (Bld) [Entitic vol] 7.6 fL Normal 6.4-10.8 [facility] Comment on above: Performed By: #### 2 [id number] #### [facility] [address] [place] [address] RBC (Bld) [#/Vol] 4.4 E12/L Normal 4.3-5.9 [facility] Comment on above: Performed By: #### 2 [id number] #### [facility] [address] [place] [address] WBC corrected for nucl RBC Auto (Bld) [#/Vol] 6.5 E9/L Normal 4.0-11.0 [facility] Comment on above: Performed By: #### 2 [id number] #### [facility] [address] [place] [address] CHEMISTRYOrdered By: SYSTEM SYSTEM on 06-29-2024 Albumin [Mass/Vol] 4.5 g/dL Normal 3.3 - 5.0 gm/dL [facility] Albumin/Globulin [Mass ratio] 1.4 {ratio} Normal 1.1 - 2.2 [facility] ALP [Catalytic activity/Vol] 50 [iU]/d Normal 21 - 98 Int._Unit/L [facility] ALT No additional P-5'-P [Catalytic activity/Vol] 75 [iU]/d High 6 - 46 Int._Unit/L [facility] Anion gap [Moles/Vol] 16 mmol/L Normal 6 - 16 mEq/L R [facility] AST [Catalytic activity/Vol] 39 [iU]/d Normal 5 - 43 Int._Unit/L [facility] Bilirubin [Mass/Vol] 0.3 mg/dL Normal 0.0 - 1 .1 mg/dL [facility] Bilirubin.direct [Mass/Vol] 0.1 mg/dL Normal 0.0 - 0.4 mg/dL [facility] Bilirubin.indirect [Mass or moles/Vol] 0.2 mg/dL Normal 0.1 - 0.9 mg/dL [facility] Calcium [Mass/Vol] 8.5 mg/dL Low 8.9 - 11. 1 mg/dL [facility] Chloride [Moles/Vol] 106 mmol/L Normal 101 - 1 11 mmol/L [facility] CO2 [Moles/Vol] 22 mmol/L Normal 21 - 31 mmol/L [facility] Creatinine [Mass/Vol] 1.2 mg/dL Normal 0.5 - 1.3 mg/dL [facility] eGFR 81 mL/min/1.73 m2 Normal >=59mL/min /1. 73 m2 [facility] Globulin (S) [Mass/Vol] 3.3 g/dL Normal 1.4 - 4.0 gm/dL [facility] Glucose [Mass/Vol] 126 mg/dL Normal 55 - 199 mg/dL [facility] Lipase [Catalytic activity/Vol] 21 U/L Normal 13 - 58 unit/L [facility] Potassium [Moles/Vol] 3.9 mmol/L Normal 3.5 - 5.3 mmol/L [facility] Protein [Mass/Vol] 7.8 g/dL Normal 6.0 - 7.8 gm/dL [facility] Sodium [Moles/Vol] 140 mmol/L Normal 135 - 145 mmol/L [facility] Troponin HS 5.50 pg/mL Low 15.90 - 38.40 pg/mL [facility] Comment on above: Interpretive Data: T he 95% CI (Confidence Interval) PPV (Positive Predictive Value) for myocardial infarction in females is 38 pg/mL, in males 51 pg/mL. The results should be used in conjunction with clinical conditions of myocardial infarction. (Access High Sensitivity Troponin I Instructions For Use, Susie Shannon, April 2018) Urea nitrogen [Mass/Vol] 12 mg/dL Normal 5 - 21 mg/dL [facility] Urea nitrogen/Creatinine [Mass ratio] 10 mg/mg Normal 10 - 20 [facility] HEMATOLOGYOrdered By: SYSTEM SYSTEM on 06-29-2024 Basophils/100 WBC (Bld) 1.2 % Normal 0.0 - 2.0 % [facility] Basophils/Leukocytes Auto (Bld) [Pure # fraction] 0.1 E9/L Normal 0.0 - 0.2 E9/L [facility] Eosinophils (Bld) [#/Vol] 0.0 E9/L Normal 0.0 - 0.5 E9/L [facility] Eosinophils/100 WBC (Bld) 0.7 % Normal 0.0 - 8.0 % [facility] Erythrocyte distribution width (RBC) [Ratio] 13.5 % Normal 10.9 - 14.2 % [facility] Hematocrit (Bld) [Volume fraction] 42.8 % Normal 37.7 - 49.0 % [facility] Hemoglobin (Bld) [Mass/Vol] 14.8 g/dL Normal 13.5 - 17.5 gm/dL [facility] Lymphocytes (Bld) [#/Vol] 3.2 E9/L Normal 1.0 - 4.0 E9/L [facility] Lymphocytes/100 WBC (Bld) 49.9 % Normal 14.0 - 50.0 % [facility] MCH (RBC) [Entitic mass] 33.6 pg Normal 27.0 - 34.0 pg [facility] MCHC (RBC) [Mass/Vol] 34.5 g/dL Normal 31.4 - 36.0 gm/dL [facility] MCV (RBC) [Entitic vol] 97.4 fL Normal 80.0 - 100.0 fL [facility] Monocytes (Bld) [#/Vol] 0.9 E9/L Normal 0.2 - 1.0 E9/L [facility] Monocytes/100 WBC (Bld) 13.2 % Normal 4.0 - 14.0 % [facility] Neutrophils (Bld) [#/Vol] 2.3 E9/L Normal 2.0 - 7.5 E9/L [facility] Neutrophils/100 WBC (Bld) 35.0 % Low 36.0 - 75.0 % [facility] Platelet 259.0 E9/L Normal 150.0 - 500.0 E9/L [facility] Platelet mean volume (Bld) [Entitic vol] 7.6 fL Normal 6.4 - 10.8 fL [facility] RBC (Bld) [#/Vol] 4.4 E12/L Normal 4.3 - 5.9 E12/L [facility] WBC corrected for nucl RBC Auto (Bld) [#/Vol] 6.5 E9/L Normal 4.0 - 11.0 E9/L [facility] ED Prov Noteon 06-11-2024 ED Prov Note ED PROVIDER NOTE [facility] NAME: Pa Robertson AGE: 33 y.o. : 1990 VISIT DATE: 06/11/2024 CSN: [id number] PCP: Page Blandon, Chief Complaint Patient presents with Chest Pain The patient presented to the emergency room with complaint he has sudden onset of chest pain started around 6:30 this morning, the patient was up and ready to go to work, the pain is located in the mid chest area and left side of the chest, radiates to his neck, mild to moderate in intensity, feels like a dull ache, has been persistent without relief, did not take any medicine to relieve his pain, he denies any prior cardiac problem or chest pain, never had any cardiac checkup, he is prediabetic but he does not take any medicine for blood pressure or diabetes, his only medication is Lexapro for anxiety, he smokes for about 9 years but he quit 7 years ago, the patient has family history of heart problem, his mother had a heart attack at age 45 but she was a heavy smoker and heavy drinker, his father had a light heart attack, patient denies shortness of breath, no GI symptoms or other complaints Chest Pain Past Medical History: Diagnosis Date Depression History reviewed. No pertinent surgical history. History reviewed. No pertinent family history. Social History Socioeconomic History Marital status: Tobacco Use Smoking status: Never Smokeless tobacco: Never Substance and Sexual Activity Alcohol use: Never Drug use: Never Previous Medications Medication Sig escitalopram oxalate (LEXAPRO) 20 MG tablet Take 1 (one) tablet (20 mg total) by mouth daily . No Known Allergies Review of Systems Cardiovascular: Positive for chest pain. All other systems reviewed and are negative. Patient Vitals for the past 24 hrs: BP Temp Temp src Pulse Resp SpO2 Height Weight 06/11/24 1100 134/79 -- -- 79 16 96 % -- -- 06/11/24 1000 (!) 105/51 -- -- 77 16 95 % -- -- 06/11/24 0901 (!) 138/91 97.3 degrees F (36.3 degrees C) Temporal 92 18 98 % 5' 7 90.7 kg (200 lb) Physical Exam Vitals and nursing note reviewed. Constitutional: General: He is not in acute distress. HENT: Head: Normocephalic. Eyes: Extraocular Movements: Extraocular movements intact. Cardiovascular: Rate and Rhythm: Normal rate and regular rhythm. Heart sounds: Normal heart sounds. Musculoskeletal: General: Normal range of motion. Cervical back: Neck supple. Pulmonary: Effort: Pulmonary effort is normal. No respiratory distress. Skin: General: Skin is warm. Neurological: General: No focal deficit present. Mental Status: He is alert and oriented to person, place, and time. Laboratory & Radiographic Imaging (if done): Results for orders placed or performed during the hospital encounter of 06/11/24 POC CBC and Differential Result Value Ref Range WBC 6.89 4.50 - 11.00 K/mcL RBC 4.77 4.50 - 5.90 M/mcL Hemoglobin 15.6 13.5 - 17.5 g/dL Hematocrit 46.0 41.0 - 53.0 % MCV 96.4 80.0 - 100.0 fL MCH 32.7 26.0 - 34.0 pg MCHC 33.9 31.0 - 37.0 g/dL RDW - CV 12.7 11.6 - 14.8 % Platelets 268 150 - 400 K/mcL MPV 9.6 9.4 - 12.4 fL Neutrophils 30.9 % Lymphocytes 53.1 % Monocytes 14.1 % Eosinophils 0.7 % Basophils 0.6 % IG Percent 0.60 % Neutrophils Abs 2.13 1.70 - 7.00 K/mcL Lymphocytes Abs 3.66 0.90 - 4.00 K/mcL Monocytes Abs 0.97 (H) 0.30 - 0.90 K/mcL Eosinophils Abs 0.05 0.00 - 0.50 K/mcL Basophils Abs 0.04 0.00 - 0.30 K/mcL IG Absolute 0.04 0.00 - 0.30 K/mcL EKG 12-lead Result Value Ref Range Ventricular Rate 88 BPM Atrial Rate 88 BPM P-R Interval 158 ms QRS Duration 84 ms Q-T Interval 376 ms QTC Calculation (Bezet) 454 ms P [place] 43 degrees R [place] 38 degrees T [place] 6 degrees POC Basic Metabolic Panel Result Value Ref Range Glucose 109 (H) 65 - 99 mg/dL BUN 12 8 - 25 mg/dL Creatinine 0.79 0.50 - 1.30 mg/dL GFR 120 >=60 mL/min/1.73 m2 Sodium 141 135 - 145 mmol/L Potassium 4.1 3.5 - 5.1 mmol/L Chloride 107 98 - 108 mmol/L TCO2 25 21 - 32 mmol/L Ionized Calcium 4.1 (L) 4.5 - 5.3 mg/dL POC D-dimer Result Value Ref Range POC D-Dimer <100 <350 ng/mL DDU POC Troponin I Result Value Ref Range Troponin I <0.05 <0.05 ng/mL POC Troponin I Result Value Ref Range Troponin I <0.05 <0.05 ng/mL XR Chest 1 View Preliminary Result No acute cardiopulmonary process. Suggestion of large calcified lymph node in subcarinal region. Recommend chest CT follow-up to exclude lymphadenopathy or mass. No comparison is available. /dawna Workstation ID: [id number] EKG interpreted by me shows sinus rhythm, rate 88, [place] interval 158 ms, QRS 84 ms, no acute ST elevation Procedures Medical Decision Making The patient presented with persistent chest pain since 6:00 in the morning, he was given 4 baby aspirin and observed in the ER, his chest pain was gradually resolving, discussed with the patient (more content not included)... Normal [facility] POC [facility] Chloride [Moles/Vol] 107 mmol/L Normal 98-108 [facility] Comment on above: Order Comment: [facility] has implemented the eGFR calculation approach that does not have a coefficient for race that conforms to the NKF-ASN Task Force Recommendations. CO2 [Moles/Vol] 25 mmol/L Normal 21-32 [facility] Comment on above: Order Comment: [facility] has implemented the eGFR calculation approach that does not have a coefficient for race that conforms to the NKF-ASN Task Force Recommendations. Creatinine [Mass/Vol] 0.79 mg/dL Normal 0.50-1.30 [facility] Comment on above: Order Comment: [facility] has implemented the eGFR calculation approach that does not have a coefficient for race that conforms to the NKF-ASN Task Force Recommendations. Glucose [Mass/Vol] 109 mg/dL High 65-99 [facility] Comment on above: Order Comment: [facility] has implemented the eGFR calculation approach that does not have a coefficient for race that conforms to the NKF-ASN Task Force Recommendations. POC GFR 120 mL/min/1.73 m2 Normal >=60 [facility] Comment on above: Order Comment: [facility] has implemented the eGFR calculation approach that does not have a coefficient for race that conforms to the NKF-ASN Task Force Recommendations. Result Comment: María mated GFR was calculated using the 2020 CKD-EPI creatinine equation. POC IONIZED CALCIUM 4.1 mg/dL Low 4.5-5.3 [facility] Comment on above: Order Comment: [facility] has implemented the eGFR calculation approach that does not have a coefficient for race that conforms to the NKF-ASN Task Force Recommendations. Potassium [Moles/Vol] 4.1 mmol/L Normal 3.5-5.1 [facility] Comment on above: Order Comment: [facility] has implemented the eGFR calculation approach that does not have a coefficient for race that conforms to the NKF-ASN Task Force Recommendations. Sodium [Moles/Vol] 141 mmol/L Normal 135-145 [facility] Comment on above: Order Comment: [facility] has implemented the eGFR calculation approach that does not have a coefficient for race that conforms to the NKF-ASN Task Force Recommendations. Urea nitrogen [Mass/Vol] 12 mg/dL Normal 8-25 [facility] Comment on above: Order Comment: [facility] has implemented the eGFR calculation approach that does not have a coefficient for race that conforms to the NKF-ASN Task Force Recommendations. POC CBC AND DIFFERENTIALon 1 BASOPHILS ABSOLUTE COUNT 0.04 K/mcL Normal 0.00-0.30 [facility] Basophils/100 WBC (Bld) 0.6 % Normal [facility] Eosinophils (Bld) [#/Vol] 0.05 10*3/uL Normal 0.00-0.50 [facility] Eosinophils/100 WBC (Bld) 0.7 % Normal [facility] Erythrocyte distribution width (RBC) [Ratio] 12.7 % Normal 11.6-14.8 [facility] Hematocrit (Bld) [Volume fraction] 46.0 % Normal 41.0-53.0 [facility] Hemoglobin (Bld) [Mass/Vol] 15.6 g/dL Normal 13.5-17.5 [facility] IG ABSOLUTE 0.04 K/mcL Normal 0.00-0.30 [facility] IG PERCENT 0.60 % Normal [facility] Comment on above: Result Comment: The IG parameter is the percentage of metamyelocytes, myelocytes and promyelocytes. An immature granulocyte count (IG) of 1% or more suggests the possibility of infection, an IG count of 3% is very likely related to an infection. Lymphocytes (Bld) [#/Vol] 3.66 10*3/uL Normal 0.90-4.00 [facility] Lymphocytes/100 WBC (Bld) 53.1 % Normal [facility] MCH (RBC) [Entitic mass] 32.7 pg Normal 26.0-34.0 [facility] MCV (RBC) [Entitic vol] 96.4 fL Normal 80.0-100.0 [facility] MEAN CORPUSCULAR HEMOGLOBIN CONC 33.9 g/dL Normal 31.0-37.0 [facility] Monocytes (Bld) [#/Vol] 0.97 10*3/uL High 0.30-0.90 [facility] Monocytes/100 WBC (Bld) 14.1 % Normal [facility] NEUTROPHILS ABSOLUTE COUNT 2.13 K/mcL Normal 1.70-7.00 [facility] Neutrophils/100 WBC (Bld) 30.9 % Normal [facility] Platelet mean volume (Bld) [Entitic vol] 9.6 fL Normal 9.4-12.4 [facility] Platelets (Bld) [#/Vol] 268 10*3/uL Normal 150-400 [facility] RBC (Bld) [#/Vol] 4.77 10*6/uL Normal 4.50-5.90 [facility] WBC (Bld) [#/Vol] 6.89 10*3/uL Normal 4.50-11.00 [facility] POC D-DIMER [facility] POC D-DIMER < Normal <350 [facility] Comment on above: Order Comment: A D-D denilson concentration of <350 ng/mL DDU is considered a low probability for pulmonary embolism (PE) and deep venous thrombosis (DVT). Results of this test should always be interpreted in conjunction with the patient's medical history, clinical presentation, and other findings. Clinical diagnosis should not be based on the results of the D-dimer alone. The above D-dimer cutoff pertains to its use for the exclusion of DVT or PE. The range associated with other clinical conditions (e.g. sepsis) has not been validated for this method. 90% of normal patients are less than 400 ng/ml. POC TROPONIN I [facility] 2023 POC TROPONIN I < Normal <0.05 [facility] POC TROPONIN I < Normal <0.05 [facility] XR CHEST PA/APon 06-11-2024 XR CHEST PA/AP EXAMINATION: XR CHEST PA/AP HISTORY: ORDERING SYSTEM PROVIDED HISTORY: Chest pain, TECHNOLOGIST PROVIDED HISTORY: Illness/Other Reason for exam: chest pain Cancer History: n Surgery, RadiationHistory: n Encounter Type: Initial Additional signs and symptoms: none ORDERING SYSTEM PROVIDED DIAGNOSIS CODES: COMPARISON: None. FINDINGS: One-view chest x-ray. No pneumothorax, pleural effusion or focal airspace consolidation. Heart is normal in size. Suggestion of large calcified lymph node in the subcarinal region measuring 2.2 x 4.4 cm. IMPRESSION: No acute cardiopulmonary process. Suggestion of large calcified lymph node in subcarinal region. Recommend chest CT follow-up to exclude lymphadenopathy or mass. No comparison is available. /dawna Workstation ID: [id number] Dictated by: SALVADOR SAEZ on TueJun 11, 2024 9:58:27 AM EDT Transcribed by: RANDI TORIBIO on TueJun 11, 2024 10:05:02 AM EDT Finalized by: SALVADOR SAEZ on TueJun 11, 2024 5:21:15 PM EDT [facility] Comment on above: Order Comment: Injur y/Trauma or Illness?:Illness/Other How long have you had these symptoms (acute/chronic)?:Acute Reason for exam?:chest pain History of cancer?:n Surgeries, chemotherapy, or radiation?:n Type of Exam?:Initial Additional signs and symptoms?:none Orthopedic Visit Reporton Orthopedic Visit Report [facility] [address] [place] [address] OFFICE VISIT Date of Service: 05/29/24 MR#: [id number] Acct: [id number] Name: PA CAMPA Rep #: [id number] : 1990 Provider: Dr. Cuco hollins MD Age/Sex: 33/M Location[facility] Status: Signed Intake Vital Signs 05/04/24 10:23 Height 5 ft 6 in Weight: 203 lb 4 oz BMI 32.8 Intake Visit Reasons: RIGHT HAND Chief Complaint: right hand injury 04/26/24 Accompanied by: Self Is patient in pain?: Yes Pain scale (1-10): 1 Allergies No Known Allergies Allergy (Verified 05/29/24 11:19) Medications ???Medication ???Instructions ???Recorded ???Confirmed ???Type escitalopram oxalate 20 mg tablet 20 mg PO QDAY 05/04/24 05/29/24 History PFSH Surgical History History of appendectomy History of surgery on upper extremity Social History Smoking Status: Former smoker alcohol intake: never HPI RIGHT HAND Details: This documentation accurately reflects the service provided and the decisions made by me, Dr. Cuco Sánchez MD 05/29/24 0916. Part of today???s visit was documented by [ ], acting as scribe. PA CAMPA is a 33 year old M here today for 4 weeks FU non op mgt for right distal phalanx fifth digit as well as a closed fracture ulnar styloid process right side. Patient doing very well. 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 Coding Level of Care Code Off vis,est,level 3 Diagnoses Closed fracture of distal phalanx of right little finger S62.636A Closed fracture of styloid process of right ulna S52.611A Assessment and Plan Assessment and Plan (1) Closed fracture of distal phalanx of right little finger: Status: Inactive Plan: 33 year old M here today for 4 weeks FU non op mgt for right distal phalanx fifth digit as well as a closed fracture ulnar styloid process right side. Patient doing well with full strength full range of motion no pain and the patient feels comfortable to return to work I think that is certainly reasonable I have remove the restrictions today filled out some paperwork for that and he will follow-up as needed if there is any further questions concerns pain or problems. The patient understands no further questions or concerns and in agreement with the plan. (2) Closed fracture of styloid process of right ulna: Status: Inactive Ortho Exam Right Wrist/Hand Skin/Wound: Yes CDI, No Swelling, No Ecchymosis (small subungal hematoma 5th digit), Yes nail intact and Yes capillary refill normal Right Wrist: Yes ROM-Extension 0-60, ROM-Flexion 0-80, ROM-Pronation 0-80 and ROM-Supination 0-90; No TTP Fracture site, Tender to palpate triangular fibrocartilage complex, Distal radioulnar joint or tender to palpate carpometacarpal joint Motor: EPL: 5, FDP-2: 5, 1st Dorsal Interosseous: 5 and APB: 5 Sensation: Radial: I, Ulnar: I and Median: I WRIST: No crossing over or scissoring of the digits. Able to make a full fist. Left Wrist/Hand Skin/Wound: No Swelling and No Ecchymosis (small subungal hematoma 5th digit) 05/29/24 1130 Date [facility]uco S[facility]chez MD [facility] Signature: Date (if applicable) CC: Normal [facility] Finger(s) Min 2 Viewson 05-06 Finger(s) Min 2 Views [facility] [address] [place] [address] Finger(s) Min 2 Views MR#: [id number] Acct: [id number] Name: PA CAMPA Rep #: [id number] : 1990 M 33 From: Edmundo Tesfaye MD PCP: Rhonda Padilla TURRET PUNCH OPERATORAdrianna Status: DEP AMB Study: Finger(s) Min 2 Views Date of Exam: 05/18/24 Exam# [id number] Ordering Dr: Cuco Sánchez [place] [id number] STUDY: X-RAY - RIGHT HAND, ATTENTION FIFTH FINGER REASON FOR EXAM: Male, 33 years old. Follow-up of the distal phalangeal fracture. TECHNIQUE: 3 view(s) of the finger were obtained. COMPARISON: May 04, 2024 FINDINGS: Normal metacarpal head. Normal metacarpophalangeal joint. Normal proximal phalanx. Normal middle phalanx. Oblique minimally displaced fracture of the distal aspect of the distal phalanx fifth digit, unchanged. No complications. Normal proximal interphalangeal joint. Normal distal interphalangeal joint. Normal soft tissues. RAD/Finger(s) Min 2 Views IMPRESSION: Stable fifth distal phalangeal fracture. No complications. Electronically Signed: Edmundo Tesfaye MD at 14:11 EDT Reading Location ID and State: [facility] / [place] , Service support , CC: TIANNA Padilla; Dr. Cuco Sánchez MD Pocket Operator: Signed Normal [facility] Orthopedic Visit Reporton Orthopedic Visit Report [facility] [address] [place] [address] [place] [address] OFFICE VISIT Date of Service: 05/18/24 MR#: [id number] Acct: [id number] Name: PA CAMPA Rep #: [id number] : 1990 Provider: Dr. Cuco hollins MD Age/Sex: 33/M Location: [facility] Status: Signed Intake Vital Signs 05/04/24 10:23 Height 5 ft 6 in Weight: 203 lb 4 oz BMI 32.8 Intake Visit Reasons: RIGHT HAND Chief Complaint: right hand injury 04/26/24 Accompanied by: Self Is patient in pain?: No Allergies No Known Allergies Allergy (Verified 05/18/24 13:22) Medications ???Medication ???Instructions ???Recorded ???Confirmed ???Type escitalopram oxalate 20 mg tablet 20 mg PO QDAY 05/04/24 05/18/24 History PFSH Surgical History History of appendectomy History of surgery on upper extremity Social History Smoking Status: Former smoker alcohol intake: never HPI RIGHT HAND Details: This documentation accurately reflects the service provided and the decisions made by me, Dr. Cuco Sánchez MD 05/18/24 0953. Part of today???s visit was documented by [ ], acting as scribe. PA CAMPA is a 33 year old M here today for 2 weeks FU non op mgt for right distal phalanx fifth digit as well as a closed fracture ulnar styloid process right side. doing well. started to remove the splint. doing some gentle rom. still some mild pain at the wrist and finger tip Supplemental Info xr 3 view 5th R digit - no change. Coding Level of Care Code Off vis,est,level 3 Diagnoses Closed fracture of distal phalanx of right little finger S62.636A Closed fracture of styloid process of right ulna S52.611A Assessment and Plan Assessment and Plan (1) Closed fracture of distal phalanx of right little finger: Status: Inactive Plan: PA CAMPA is a 33 year old M here today for 2 weeks FU non op mgt for right distal phalanx fifth digit as well as a closed fracture ulnar styloid process right side. Patient is doing well at this point he will discontinue the splint start some gentle active passive range of motion no heavy lifting or gripping and follow-up in 2 weeks time if he is asymptomatic at that time we will clear her to return back to work patient understands no further questions or concerns. (2) Closed fracture of styloid process of right ulna: Status: Inactive Orders: Orders Finger(s) Min 2 Views Today S62.636A - Displaced fracture of distal phalanx of right little finger, initial encounter for closed fracture Ortho Exam Right Wrist/Hand Skin/Wound: Yes CDI, Yes Swelling, Yes Ecchymosis (small subungal hematoma 5th digit), Yes nail intact and Yes capillary refill normal Right Wrist: Yes ROM-Extension 0-60, ROM-Flexion 0-80, ROM-Pronation 0-80, ROM-Supination 0-90, TTP Fracture site and Tender to palpate triangular fibrocartilage complex; No Distal radioulnar joint or tender to palpate carpometacarpal joint Motor: EPL: 4, FDP-2: 4, 1st Dorsal Interosseous: 4 and APB: 4 Sensation: Radial: I, Ulnar: I and Median: I WRIST: No crossing over or scissoring of the digits. Mild pain at the distal tip of the fifth digit able to make a full fist. Left Wrist/Hand Skin/Wound: Yes Swelling and Yes Ecchymosis (small subungal hematoma 5th digit) 05/18/24 1345 Date Cuco Pereira Signature: Date (if applicable) [facility] PA CAMPA ([id number]) 1990 M Date Time Provider Department 05/16/24 RHONDA PADILLA [facility] During your visit today, we recorded the following information about you: Christine Hyatt 05/16/2024 11:54 AM Signed [facility] Respiratory received an order for PAP therapy. Unfortunately, the patient resides out of service area and we are unable to provide. Please send the referral to an alternate provider. Thank you, [facility] [phone] fax Elvira Judd MA 05/17/2024 3:48 PM Signed Order faxed to [facility] Elvira Judd MA Allergies As of Date: 05/16/2024 (No Known Allergies) Date Reviewed: 03/29/2024 Reviewed by: Rhonda Padilla, SERVICE ATTENDANT [place].SHIPPING AND RECEIVING CLERK - Fully Assessed Reason for Visit: PAP Therapy Follow Up [1285] Prescriptions as of 05/17/2024 - escitalopram oxalate (LEXAPRO) 20 mg tablet TAKE 1 TABLET BY MOUTH EVERY afternoon - multivit-min/folic/vit K/lycop (ONE-A-DAY MEN'S MULTIVITAMIN ORAL) Take 1 tablet by mouth once daily. Problem List As Of Date 05/16/2024 Noted Resolved Obesity, Class I, BMI 30-34.9 [E66.9] 09/14/2023 REDD (generalized anxiety disorder) [F41.1] 09/14/2023 Encounter Status:Closed by CHRISTINE HYATT on 05/16/24 Normal [facility] Hand Min 3 Viewson 4 Hand Min 3 Views [facility]iology [address] [place] [address] Hand Min 3 Views MR#: [id number] Acct: [id number] Name: PA CAMPA Rep #: [id number] : 1990 M 33 From: Oswald Mcguire MD PCP: TIANNA Almazan Status: DEP AMB Study: Hand Min 3 Views Date of Exam: 05/04/24 Exam# [id number] Ordering Dr: Cuco Sánchez [place] [id number] INDICATION: FU 5th digit fracture EXAMINATION/TECHNIQUE: X-RAY - RIGHT XR Hand Min 3 Views COMPARISON: Hand radiographs 04/24/2024. FINDINGS: 3 views of the right hand. Again are noted stable appearing oblique fractures of the right little finger distal phalanx tuft as well as ulna styloid. No other acute osseous abnormality is identified. RAD/Hand Min 3 Views IMPRESSION: Stable right little finger and distal ulna fractures as above. Electronically Signed: Oswald Mcguire MD at 23:00 EDT , CC: TIANNA Padilla; Dr. Cuco Sánchez MD Pocket Operator: Signed Normal [facility] Orthopedic Visit Reporton Orthopedic Visit Report [facility] [address] [place] [address] OFFICE VISIT Date of Service: 05/04/24 MR#: [id number] Acct: [id number] Name: PA CAMPA Rep #: [id number] : 1990 Provider: Dr. Cuco hollins MD Age/Sex: 33/M Location: [facility] Status: Signed Intake Vital Signs 04/26/24 17:12 05/04/24 10:23 Height 5 ft 6 in 5 ft 6 in Weight: 203 lb 4 oz BMI 32.8 Intake Visit Reasons: RIGHT HAND Chief Complaint: right hand injury 04/26/24 Accompanied by: Significant Other Is patient in pain?: Yes Pain scale (1-10): 3 Allergies No Known Allergies Allergy (Verified 05/04/24 10:25) Medications ???Medication ???Instructions ???Recorded ???Confirmed ???Type escitalopram oxalate 20 mg tablet 20 mg PO QDAY 05/04/24 05/04/24 History PFSH Surgical History (Updated 05/04/24 @ 10:29 by Linnea Masterson) History of appendectomy History of surgery on upper extremity Social History (Updated 05/04/24 @ 10:32 by Linnea Masterson) Smoking Status: Former smoker alcohol intake: never HPI RIGHT HAND Details: This documentation accurately reflects the service provided and the decisions made by me, Dr. Cuco Sánchez MD 05/04/24 0834. Part of today???s visit was documented by [ ], acting as scribe. PA CAMPA is a 33 year old M here today for right distal ulna fracture and right 5th digit tuft fracture. happened last 7 days ago. RHD. crushed by tongue of boat while working at home. splinted, removed the finger splint though. 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 Supplemental Info [facility] Imaging Services [address] [place] [address] Wrist min 3 Views MR#: [id number] Acct: [id number] Name: PA CAMPA Rep #: [id number] : 1990 M 33 From: Herman Maldonado MD PCP: Care Physician,No Primary Status: PRE ER Study: Wrist min 3 Views Date of Exam: 04/26/24 Exam# [id number] Ordering Dr: [place] [id number] STUDY: X-RAY - RIGHT WRIST REASON FOR EXAM: Male, 33 years old. Trauma TECHNIQUE: 3 view(s) of the wrist were obtained. COMPARISON: None. FINDINGS: There is a small nondisplaced fracture of the tip of the ulnar styloid. Otherwise normal visualized distal radius and ulna. Normal radiocarpal articulation. Normal distal radioulnar articulation. Normal carpal bones. Normal carpal articulations. Normal carpometacarpal articulation of the thumb. Normal second through fifth carpometacarpal articulations. Normal visualized metacarpal bones. The soft tissue structures are unremarkable. RAD/Wrist min 3 Views IMPRESSION: Tiny nondisplaced fracture of the ulnar styloid, otherwise negative. Electronically Signed: Herman Maldonado MD at 17:57 EDT Reading Location ID and State: [id number] , Service support , [facility] Imaging Services [address] [place] [address] Hand Min 3 Views MR#: [id number] Acct: [id number] Name: PA CAMPA Rep #: [id number] : 1990 M 33 From: Herman Maldonado MD PCP: Care Physician,No Primary Status: PRE ER Study: Hand Min 3 Views Date of Exam: 04/26/24 Exam# [id number] Ordering Dr: [place] [id number] STUDY: X-RAY - RIGHT HAND REASON FOR EXAM: Male, 33 years old. Trauma TECHNIQUE: 3 view(s) of the hand. COMPARISON: None. FINDINGS: Small fracture of the tip of the ulnar styloid. Nondisplaced fracture running obliquely through the fifth distal phalanx. No other acute abnormalities are seen. Normal radiocarpal articulation. Normal distal radioulnar joint. Normal visualized carpal bones. Normal carpal articulations Normal carpometacarpal articulation of the thumb. Normal second through fifth carpometacarpal joints. Normal metacarpi. Normal metacarpophalangeal joint of the thumb. Normal interphalangeal joint of the thumb. Normal proximal and distal phalanges of the thumb. Normal metacarpophalangeal joints of the second through fifth fingers. Normal proximal and distal interphalangeal joints of the second through fifth fingers. Normal phalanges of the second through fifth fingers. The soft tissue structures are unremarkable. RAD/Hand Min 3 Views IM (more content not included)... Normal [facility] Emergency Department Summary on 04-26-2024 Emergency Department Summary [facility] Medical Records Department [address] [place] [address] Emergency Department Summary 04/26/24 MR#: [id number] Acct: [id number] Name: PA CAMPA Rep #: [id number] : 1990 33 From: Daniel Rashid DO PCP: TIANNA Almazan Status:DEP ER Location: ED HPI History of Present Illness HPI Narrative: Patient presents with right wrist injury that occurred today. Patient states that he was loading a boat onto a trailer and the boat went over the dorsal aspect of his right wrist. The patient describes his pain as sharp and aching. Patient states it is worse with movement. Patient states his pain is better with rest. Patient was to some tingling into his right pinky finger. Patient denies any weakness. Patient is unsure of his last tetanus but thinks it was more than 10 years ago. Chief Complaint: Upper Extremity Injury Informant: patient Occured/Mechanism Mechanism/Context: Yes crush and Yes direct blow Onset/Context/Timing Onset: Today Context: Sudden Onset Timing: Continuous Quality of Pain: Aching Location: Right wrist Worsened by: Movement Relieved by: Rest Associated Symptoms Associated Symptoms: Positive for Parasthesia; Negative for Weakness or Loss of Funtion Narrative Tetanus Immunization: >10 years PFSH PFSH Medical History no medical history no medical history Allergy/AdvReac Type Severity Reaction Status Date / Time No Known Allergies Allergy Verified 04/26/24 17:12 Surgical History (Updated 04/26/24 @ 18:[address] Daniel Rashid DO) History of surgery on upper extremity Social History Smoking Status: Never smoker ROS ROS ED Constitutional Constitutional ED: Denies chills or fever(s) Eyes Eyes: Denies blurry vision or change in vision ENT ENT ED: Denies rhinorrhea or sore throat Cardiovascular Cardiovascular: Denies chest pain or palpitations Respiratory/Chest Respiratory/Chest: Denies cough or dyspnea Gastrointestinal Gastrointestinal: Denies nausea or vomiting Genitourinary Genitourinary ED: Denies dysuria or hematuria Musculoskeletal Musculoskeletal: Denies back pain or neck pain Integumentary Denies abscess or rash Neurologic Neurologic: Denies headache(s) or weakness Allergic/Immunologic Allergic/Immunologic ED: Denies mouth swelling or urticaria EXAM Physical Exam Const Vital Signs: 04/26/24 17:12 Temperature 96.8 F L Temperature Source Temporal Pulse Rate 99 Respiratory Rate 18 Blood Pressure 132/88 H Blood Pressure Mean 102 Pulse Ox 97 Oxygen Delivery Method Room Air Positive well nourished and well developed General Appearance ED: well developed and NAD HEENT Reports moist mucous membranes normocephalic and atraumatic Neck full ROM and supple Extremity Extremity Narrative: There is tenderness over the dorsal aspect of the right wrist. There is some edema. There is no ecchymosis. There is no obvious deformity noted. Range of motion was limited in all motions of the right wrist secondary to pain. Strength is 5/5 in the radial, median, and ulnar areas. Sensation was intact to light touch in the radial, median, and ulnar areas. However, there is decreased sensation to light touch of the distal phalanx of the right fifth finger. Radial pulses are equal bilaterally. Capillary refill is less than 2 seconds in all digits. Neuro oriented x3, CN's II-XII intact bilaterally, moves all extremities, no focal motor deficits and no sensory deficits noted Sensorium / Orientation: alert Motor Exam: strength 5/5 throughout Skin Skin Narrative: There is an abrasion over the dorsal aspect of the right index finger over the PIP joint. There is no active bleeding noted. There is no tenderness over this area. There is no erythema or warmth noted. There is full range of motion. Trauma: abrasion MDM MDM MDM Narrative Medical decision making narrative: Differential diagnosis includes fracture, contusion, and sprain. X-rays of the right hand will be obtained to assess for fracture. X-rays of the right wrist will be obtained to assess for fracture. Radiography Diagnostic Testing: Clinical Impression(s) from Imaging Studies Hand X-Ray 04/26/24 17:16 IMPRESSION: Nondisplaced fracture of the fifth distal phalanx. Fracture of the tip of the ulnar styloid. Otherwise negative. Electronically Signed: Herman Maldonado MD at 18:00 EDT , Wrist X-Ray 04/26/24 17:25 IMPRESSION: Tiny nondisplaced fracture of the ulnar styloid, otherwise negative. Electronically Signed: Herman Maldonado MD at 17:57 EDT Reading Location ID and State: 1775 / A (more content not included)... Normal [facility] Hand Min 3 Viewson 4 Hand Min 3 Views [facility] Imaging Services [address] [place] [address] Hand Min 3 Views MR#: [id number] Acct: [id number] Name: PA CAMPA Rep #: [id number] : 1990 M 33 From: Herman hall MD PCP: Care Physician,No Primary Status: PRE ER Study: Hand Min 3 Views Date of Exam: 04/26/24 Exam# [id number] Ordering Dr: [place] [id number] STUDY: X-RAY - RIGHT HAND REASON FOR EXAM: Male, 33 years old. Trauma TECHNIQUE: 3 view(s) of the hand. COMPARISON: None. FINDINGS: Small fracture of the tip of the ulnar styloid. Nondisplaced fracture running obliquely through the fifth distal phalanx. No other acute abnormalities are seen. Normal radiocarpal articulation. Normal distal radioulnar joint. Normal visualized carpal bones. Normal carpal articulations Normal carpometacarpal articulation of the thumb. Normal second through fifth carpometacarpal joints. Normal metacarpi. Normal metacarpophalangeal joint of the thumb. Normal interphalangeal joint of the thumb. Normal proximal and distal phalanges of the thumb. Normal metacarpophalangeal joints of the second through fifth fingers. Normal proximal and distal interphalangeal joints of the second through fifth fingers. Normal phalanges of the second through fifth fingers. The soft tissue structures are unremarkable. RAD/Hand Min 3 Views IMPRESSION: Nondisplaced fracture of the fifth distal phalanx. Fracture of the tip of the ulnar styloid. Otherwise negative. Electronically Signed: Herman Maldonado MD at 18:00 EDT , CC: Dr. Daniel Rashid, DO; No Primary Care Physician Pocket Operator: Signed Normal [facility] Wrist min 3 Viewson 04-26-20 Wrist min 3 Views [facility] Imaging Services [address] [place] [address] Wrist min 3 Views MR#: [id number] Acct: [id number] Name: PA CAMPA Rep #: [id number] : 1990 M 33 From: Herman hall MD PCP: Care Physician,No Primary Status: PRE ER Study: Wrist min 3 Views Date of Exam: 04/26/24 Exam# [id number] Ordering Dr: [place] [id number] STUDY: X-RAY - RIGHT WRIST REASON FOR EXAM: Male, 33 years old. Trauma TECHNIQUE: 3 view(s) of the wrist were obtained. COMPARISON: None. FINDINGS: There is a small nondisplaced fracture of the tip of the ulnar styloid. Otherwise normal visualized distal radius and ulna. Normal radiocarpal articulation. Normal distal radioulnar articulation. Normal carpal bones. Normal carpal articulations. Normal carpometacarpal articulation of the thumb. Normal second through fifth carpometacarpal articulations. Normal visualized metacarpal bones. The soft tissue structures are unremarkable. RAD/Wrist min 3 Views IMPRESSION: Tiny nondisplaced fracture of the ulnar styloid, otherwise negative. Electronically Signed: Herman Maldonado MD at 17:57 EDT , CC: Dr. Daniel Rashid DO; No Primary Care Physician Pocket Operator: Signed Normal [facility] PA CAMPA ([id number]) 1990 M Date Time Provider Department 04/24/24 RHONDA PADILLA During your visit today, we recorded the following information about you: Rhonda Padilla APRN.SHIPPING AND RECEIVING CLERK 07/05/2024 2:22 PM Signed Opened in error. Allergies As of Date: 04/24/2024 (No Known Allergies) Date Reviewed: 03/29/2024 Reviewed by: Rhonda Padilla APRN.SHIPPING AND RECEIVING CLERK - Fully Assessed Reason for Visit: Results [95] Orders [681] Primary Visit Diagnosis:Excessive daytime sleepiness [G47.19] Other Visit Diagnosis:Mild obstructive sleep apnea [G47.33] Order(s):PAP THERAPY ORDER [[id number]] Order #: [id number]: 1 Prescriptions as of 07/05/2024 - escitalopram oxalate (LEXAPRO) 20 mg tablet Take 1 tablet by mouth every afternoon. - multivit-min/folic/vit K/lycop (ONE-A-DAY MEN'S MULTIVITAMIN ORAL) Take 1 tablet by mouth once daily. Problem List As Of Date 04/24/2024 Noted Resolved Obesity, Class I, BMI 30-34.9 [E66.811] 09/14/2023 REDD (generalized anxiety disorder) [F41.1] 09/14/2023 Encounter Status:Closed by RHONDA PADILLA on 07/05/24 Normal [facility] POLYSOMNOGRAM (PSG)/HOME SLE EP APNEA TEST (HSAT)on 04-12-2024 POLYSOMNOGRAM (PSG)/HOME SLEEP APNEA TEST (HSAT) [facility] at [address], [address] [address] ; Home Sleep Apnea Test (HSAT) Study Report Name: PA CAMPA Date of Study: 04/12/2024 [facility]#: [id number] Age: 33 (: 1990) ESS: Neck Circ. (cm): 39 Height (cm): 167.6 Weight (kg): 92 BMI: 32.8 Referring Provider: RHONDA PADILLA Mailcode: [facility] Sleep history: The patient is a 33 year old male with a history of fatigue and snoring. The patient is here for assessment of obstructive sleep apnea. The patient does not endorse a habitual sleep position. Pertinent medical history: Anxiety, Obesity Medications: Lexapro Sleep procedure: PSG unattended Type III, minimum of 4 parameters (12092) Procedure: This study was performed using a Type III ambulatory PSG device and was unattended. The patient was instructed on proper use of the device by a registered nuclear medicine pet ct technologist. The monitored parameters included heart rate, oxygen saturation, continuous airflow with thermistor and nasal pressure transducer, snoring via nasal pressure transducer, chest and abdominal effort, and body position. LUCY definition: Respiratory event index (LUCY), calculated as respiratory events x 60 / TRT (total recording time in minutes). Note: the apnea hypopnea index has been replaced by the respiratory event index for home sleep apnea test. Since the home sleep apnea test does not measure sleep, the LUCY is most accurate index of respiratory events. The LUCY is a surrogate of the AHI per the AASM Manual for Scoring of Sleep and Associated Events version 2.6. Apnea definition: The peak signal excursions drop by >90% of pre-event baseline using an oronasal thermal sensor (diagnostic study), PAP device flow (titration study) or an alternative apnea sensor (diagnostic study). The duration of the >90% drop in signal excursion is >=10 seconds. Hypopnea definition: The peak signal excursions drop by >= 30% of pre-event baseline using nasal pressure (diagnostic study), PAP device flow (titration study) or an alternative hypopnea sensor (diagnostic study). The duration of the >= 30% drop in signal excursion is >=10 seconds. There is a greater than or equal to 3% oxygen desaturation from pre-event baseline. RESPIRATORY DATA: The study started at 20:15:12 and ended at 06:15:50 and the total recording time was 600 minutes. By convention, sleep is assumed for the whole recording. Snoring was noted. There was a total of 115 respiratory events. Of these events, the total number of apneas was 0 (0 obstructive, 0 mixed, and 0 central (0.0%)) and 115 hypopneas. The central apnea index (JESSY) was 0.0. The respiratory event index (LUCY) was 11.5 events per hour of study time. The mean oxygen saturation during the study was 93.0%, with a minimum oxygen saturation of 78.0%. The patient spent 37.8 minutes at oxygen saturation measured less than 90% (7.5% of recording time) and 18.0 minutes at oxygen saturation measured at or less than 88% (3.0% of recording time). Time LUCY/AHI Supine 314.5 min 12.6 Off-Supine 286.0 min 10.3 Total 600.5 min 11.5 ECG DATA: The average heart rate was 82 bpm with a range of 57 bpm to 121 bpm. ICSD DIAGNOSIS: Obstructive Sleep Apnea Syndrome [G47.33] IMPRESSION/RECOMMENDATI ONS: 1. This study confirms a diagnosis of at least mild obstructive sleep apnea. 2. The results of this study may represent an underestimation of the degree of obstructive sleep apnea, especially hypopneas, because of the known limitations of HSAT, such as inability to record arousals because EEG is not recorded. 3. Treatment of mild sleep apnea can include weight loss, positional therapy, treatment of allergies, oral appliance therapy or ENT evaluation of any airway abnormalities. PAP therapy may be considered in patients with documented symptoms of daytime sleepiness, impaired cognition, mood disorder, insomnia, or documented hypertension, ischemic heart disease, or history of stroke. INTERPRETING PHYSICIAN: MG Katy DO, CBSM, ABSM I attest that I have performed epoch by epoch review of the entire raw data and find this study to be technically adequate. Report Digitally Signed By: Junaid Burns (04/22/2024 8:33:54 PM) [facility]ella 04-06-2024 [facility] Telephone (SAUL) PA CAMPA ([id number]) 1990 M Date Time Provider Department 04/06/24 PAGE BLANDON During your visit today, we recorded the following information about you: Mandi Mesa MA 04/06/2024 7:06 AM Signed ----- Message from Rhonda Padilla APRN.SHIPPING AND RECEIVING CLERK sent at 04/05/2024 2:56 PM EDT ----- A1C was in prediabetic range and BS on CMP was 130. Recommend diet and exercise efforts. Limit carb and sugar intake. TSH and CBC were WNL Vitamin D was low- start 2,000 international unit(s) daily. He can get this OTC. Mandi Mesa MA 04/06/2024 10:15 AM Signed Patient received his my chart message. Mandi Mesa MA Allergies As of Date: 04/06/2024 (No Known Allergies) Date Reviewed: 03/29/2024 Reviewed by: Rhonda Padilla APRN.SHIPPING AND RECEIVING CLERK - Fully Assessed Reason for Visit: Results [95] Prescriptions as of 04/06/2024 - escitalopram oxalate (LEXAPRO) 20 mg tablet Take 1 tablet by mouth every afternoon. - multivit-min/folic/vit K/lycop (ONE-A-DAY MEN'S MULTIVITAMIN ORAL) Take 1 tablet by mouth once daily. Problem List As Of Date 04/06/2024 Noted Resolved Obesity, Class I, BMI 30-34.9 [E66.9] 09/14/2023 REDD (generalized anxiety disorder) [F41.1] 09/14/2023 Encounter Status:Closed by MANDI MESA on 04/06/24 Normal [facility] 25(OH)D3 SerPl-mCncon 2023 25-hydroxyvitamin D3 [Mass/Vol] 22.3 ng/mL Low 31.0-80.0 [facility] Comment on above: Order Comment: Speci men Type: BLOOD SPECIMEN Ordering Facility: [facility] Address: [address] [place] [address] Result Comment: Clas sification of 25 [place] Vitamin D status: Deficiency/Insufficiency: < or = 30 ng/ml. Sufficiency/Optimal Levels: 31-80 ng/mL Toxicity: > 100 ng/mL. Test performed by chemiluminescent immunoassay. Performed By: #### 3 016-3 #### [facility] CLIA [id number] [address] [place] [address] [place] [address] [place] CBC W Auto Differential pane l (Bld)on 04-04-2024 Basophils (Bld) [#/Vol] 0.07 10*3/uL Normal <0.11 [facility] Comment on above: Order Comment: Speci men Type: BLOOD SPECIMEN Ordering Facility: [facility] Address: [address] [place] [address] Performed By: #### 5 7021-8 #### [facility] CLIA [id number] [address] [place] [address] [place] Basophils/100 WBC (Bld) 0.8 % Normal [facility] Comment on above: Order Comment: Speci men Type: BLOOD SPECIMEN Ordering Facility: [facility] Address: [address] [place] [address] Performed By: #### 5 7021-8 #### [facility] CLIA [id number] [address] [place] [address] [place] Differential cell count method Nom (Bld) Auto Normal [facility] Comment on above: Order Comment: Speci men Type: BLOOD SPECIMEN Ordering Facility: [facility] Address: [address] [place] [address] Performed By: #### 5 7021-8 #### [facility] CLIA [id number] [address] [place] [address] [place] Eosinophils (Bld) [#/Vol] 0.08 10*3/uL Normal <0.46 [facility] Comment on above: Order Comment: Speci men Type: BLOOD SPECIMEN Ordering Facility: [facility] Address: [address] [place] [address] Performed By: #### 5 7021-8 #### [facility] CLIA [id number] [address] [place] [address] [place] Eosinophils/100 WBC (Bld) 1.0 % Normal [facility] Comment on above: Order Comment: Speci men Type: BLOOD SPECIMEN Ordering Facility: [facility] Address: [address] [place] [address] Performed By: #### 5 7021-8 #### [facility] CLIA [id number] [address] [place] [address] [place] Erythrocyte distribution width (RBC) [Ratio] 12.7 % Normal 11.5-15.0 [facility] Comment on above: Order Comment: Speci men Type: BLOOD SPECIMEN Ordering Facility: [facility] Address: [address] [place] [address] Performed By: #### 5 7021-8 #### [facility] CLIA [id number] [address] [place] [address] [place] Hematocrit (Bld) [Volume fraction] 41.8 % Normal 39.0-51.0 [facility] Comment on above: Order Comment: Speci men Type: BLOOD SPECIMEN Ordering Facility: [facility] Address: [address] [place] [address] Performed By: #### 5 7021-8 #### [facility] CLIA [id number] [address] [place] [address] [place] Hemoglobin (Bld) [Mass/Vol] 13.9 g/dL Normal 13.0-17.0 [facility] Comment on above: Order Comment: Speci men Type: BLOOD SPECIMEN Ordering Facility: [facility] Address: [address] [place] [address] Performed By: #### 5 7021-8 #### [facility] CLIA [id number] [address] [place] [address] [place] Immature granulocytes (Bld) [#/Vol] 0.03 10*3/uL Normal <0.10 [facility] Comment on above: Order Comment: Speci men Type: BLOOD SPECIMEN Ordering Facility: [facility] Address: [address] [place] [address] Performed By: #### 5 7021-8 #### [facility] CLIA [id number] [address] [place] [address] [place] Immature granulocytes/100 WBC (Bld) 0.4 % Normal [facility] Comment on above: Order Comment: Speci men Type: BLOOD SPECIMEN Ordering Facility: [facility] Address: [address] [place] [address] Performed By: #### 5 7021-8 #### [facility] CLIA [id number] [address] [place] [address] [place] Lymphocytes (Bld) [#/Vol] 3.56 10*3/uL Normal 1.00-4.00 [facility] Comment on above: Order Comment: Speci men Type: BLOOD SPECIMEN Ordering Facility: [facility] Address: [address] [place] [address] Performed By: #### 5 7021-8 #### [facility] CLIA [id number] [address] [place] [address] [place] Lymphocytes/100 WBC (Bld) 42.6 % Normal [facility] Comment on above: Order Comment: Speci men Type: BLOOD SPECIMEN Ordering Facility: [facility] Address: [address] [place] [address] Performed By: #### 5 7021-8 #### [facility] CLIA [id number] [address] [place] [address] [place] MCH (RBC) [Entitic mass] 32.1 pg Normal 26.0-34.0 [facility] Comment on above: Order Comment: Speci men Type: BLOOD SPECIMEN Ordering Facility: [facility] Address: [address] [place] [address] Performed By: #### 5 7021-8 #### [facility] CLIA [id number] [address] [place] [address] [place] MCHC (RBC) [Mass/Vol] 33.3 g/dL Normal 30.5-36.0 [facility] Comment on above: Order Comment: Speci men Type: BLOOD SPECIMEN Ordering Facility: [facility] Address: [address] [place] [address] Performed By: #### 5 7021-8 #### [facility] CLIA [id number] [address] [place] [address] [place] MCV (RBC) [Entitic vol] 96.5 fL Normal 80.0-100.0 [facility] Comment on above: Order Comment: Speci men Type: BLOOD SPECIMEN Ordering Facility: [facility] Address: [address] [place] [address] Performed By: #### 5 7021-8 #### [facility] CLIA [id number] [address] [place] [address] [place] Monocytes (Bld) [#/Vol] 1.07 10*3/uL High <0.87 [facility] Comment on above: Order Comment: Speci men Type: BLOOD SPECIMEN Ordering Facility: [facility] Address: [address] [place] [address] Performed By: #### 5 7021-8 #### [facility] CLIA [id number] [address] [place] [address] [place] Monocytes/100 WBC (Bld) 12.8 % Normal [facility] Comment on above: Order Comment: Speci men Type: BLOOD SPECIMEN Ordering Facility: [facility] Address: [address] [place] [address] Performed By: #### 5 7021-8 #### [facility] CLIA [id number] [address] [place] [address] [place] Neutrophils (Bld) [#/Vol] 3.55 10*3/uL Normal 1.45-7.50 [facility] Comment on above: Order Comment: Speci men Type: BLOOD SPECIMEN Ordering Facility: [facility] Address: [address] [place] [address] Performed By: #### 5 7021-8 #### [facility] CLIA [id number] [address] [place] [address] [place] Neutrophils/100 WBC (Bld) 42.4 % Normal [facility] Comment on above: Order Comment: Speci men Type: BLOOD SPECIMEN Ordering Facility: [facility] Address: [address] [place] [address] Performed By: #### 5 7021-8 #### [facility] CLIA [id number] [address] [place] [address] [place] Nucleated RBC (Bld) [#/Vol] 10*3/uL Normal <0.01 [facility] Comment on above: Order Comment: Speci men Type: BLOOD SPECIMEN Ordering Facility: [facility] Address: [address] [place] [address] Performed By: #### 5 7021-8 #### [facility] CLIA [id number] [address] [place] [address] [place] Nucleated RBC/100 WBC (Bld) [Ratio] 0.0 /100 WBC Normal [facility] Comment on above: Order Comment: Speci men Type: BLOOD SPECIMEN Ordering Facility: [facility] Address: [address] [place] [address] Performed By: #### 5 7021-8 #### [facility] CLIA [id number] [address] [place] [address] [place] Platelet mean volume (Bld) [Entitic vol] 10.2 fL Normal 9.0-12.7 [facility] Comment on above: Order Comment: Speci men Type: BLOOD SPECIMEN Ordering Facility: [facility] Address: [address] [place] [address] Performed By: #### 5 7021-8 #### [facility] CLIA [id number] [address] [place] [address] [place] Platelets (Bld) [#/Vol] 249 10*3/uL Normal 150-400 [facility] Comment on above: Order Comment: Speci men Type: BLOOD SPECIMEN Ordering Facility: [facility] Address: [address] [place] [address] Performed By: #### 5 7021-8 #### [facility] CLIA [id number] [address] [place] [address] [place] RBC (Bld) [#/Vol] 4.33 10*6/uL Normal 4.20-6.00 [facility] Comment on above: Order Comment: Speci men Type: BLOOD SPECIMEN Ordering Facility: [facility] Address: [address] [place] [address] Performed By: #### 5 7021-8 #### [facility] CLIA [id number] [address] [place] [address] [place] WBC (Bld) [#/Vol] 8.36 10*3/uL Normal 3.70-11.00 [facility] Comment on above: Order Comment: Speci men Type: BLOOD SPECIMEN Ordering Facility: [facility] Address: [address] [place] [address] Performed By: #### 5 7021-8 #### [facility] CLIA [id number] [address] [place] [address] [place] Comprehensive metabolic 2000 panelon 04-04-2024 Albumin [Mass/Vol] 4.4 g/dL Normal 3.9-4.9 [facility] Comment on above: Order Comment: Speci men Type: BLOOD SPECIMEN Ordering Facility: [facility] Address: [address] [place] [address] Performed By: #### 3 016-3 #### [facility] CLIA [id number] [address] [place] [address] [place] ALP [Catalytic activity/Vol] 54 U/L Normal 38-113 [facility] Comment on above: Order Comment: Speci men Type: BLOOD SPECIMEN Ordering Facility: [facility] Address: [address] [place] [address] Performed By: #### 3 016-3 #### [facility] CLIA [id number] [address] [place] [address] [place] ALT [Catalytic activity/Vol] 54 U/L Normal 10-54 [facility] Comment on above: Order Comment: Speci men Type: BLOOD SPECIMEN Ordering Facility: [facility] Address: [address] [place] [address] Performed By: #### 3 016-3 #### [facility] CLIA [id number] [address] [place] [address] [place] Anion gap [Moles/Vol] 15 mmol/L Normal 8-15 [facility] Comment on above: Order Comment: Speci men Type: BLOOD SPECIMEN Ordering Facility: [facility] Address: [address] [place] [address] Performed By: #### 3 016-3 #### [facility] CLIA [id number] [address] [place] [address] [place] AST [Catalytic activity/Vol] 34 U/L Normal 14-40 [facility] Comment on above: Order Comment: Speci men Type: BLOOD SPECIMEN Ordering Facility: [facility] Address: [address] [place] [address] Performed By: #### 3 016-3 #### [facility] CLIA [id number] [address] [place] [address] [place] Bilirubin [Mass/Vol] 0.3 mg/dL Normal 0.2-1.3 [facility] Comment on above: Order Comment: Speci men Type: BLOOD SPECIMEN Ordering Facility: [facility] Address: [address] [place] [address] Performed By: #### 3 016-3 #### [facility] CLIA [id number] [address] [place] [address] [place] Calcium [Mass/Vol] 9.2 mg/dL Normal 8.5-10.2 [facility] Comment on above: Order Comment: Speci men Type: BLOOD SPECIMEN Ordering Facility: [facility] Address: [address] [place] [address] Performed By: #### 3 016-3 #### [facility] CLIA [id number] [facility] [place] [address] [place] Chloride [Moles/Vol] 101 mmol/L Normal 98-107 [facility] Comment on above: Order Comment: Speci men Type: BLOOD SPECIMEN Ordering Facility: [facility] Address: [address] [place] [address] Performed By: #### 3 016-3 #### [facility] CLIA [id number] [address] [place] [address] [place] CO2 [Moles/Vol] 21 mmol/L Low 22-30 [facility] Comment on above: Order Comment: Speci men Type: BLOOD SPECIMEN Ordering Facility: [facility] Address: [address] [place] [address] Performed By: #### 3 016-3 #### [facility] CLIA [id number] [address] [place] [address] [place] Creatinine [Mass/Vol] 1.02 mg/dL Normal 0.73-1.22 [facility] Comment on above: Order Comment: Speci men Type: BLOOD SPECIMEN Ordering Facility: [facility] Address: [address] [place] [address] Performed By: #### 3 016-3 #### [facility] CLIA [id number] [address] [place] [address] [place] Creatinine and Glomerular filtration rate.predicted panel (S/P/Bld) 99 mL/min/1.73m??? Normal >=60 [facility] Comment on above: Order Comment: Speci men Type: BLOOD SPECIMEN Ordering Facility: [facility] Address: [address] [place] [address] Result Comment: María mated Glomerular Filtration Rate (eGFR) is calculated using the 2020 CKD-EPI creatinine equation. This equation utilizes serum creatinine, sex, and age as parameters. The creatinine assay has traceable calibration to isotope dilution-mass spectrometry. Refer to KDIGO guidelines for clinical interpretation. In patients with unstable renal function, e.g. those with acute kidney injury, the eGFR may not accurately reflect actual GFR. Performed By: #### 3 016-3 #### [facility] CLIA [id number] [address] [place] [address] [place] Glucose [Mass/Vol] 130 mg/dL High 74-99 [facility] Comment on above: Order Comment: Speci men Type: BLOOD SPECIMEN Ordering Facility: [facility] Address: [address] [place] [address] Result Comment: The [place] Diabetes Association (ADA) provides guidance for cutoff values for fasting glucose and random glucose. The ADA defines fasting as no caloric intake for at least 8 hours. Fasting plasma glucose results between 100 to 125 mg/dL indicate increased risk for diabetes (prediabetes). Fasting plasma glucose results greater than or equal to 126 mg/dL meet the criteria for diagnosis of diabetes. In the absence of unequivocal hyperglycemia, results should be confirmed by repeat testing. In a patient with classic symptoms of hyperglycemia or hyperglycemic crisis, random plasma glucose results greater than or equal to 200 mg/dL meet the criteria for diagnosis of diabetes. Reference: Standards of Medical Care in Diabetes 2016, [place] [employer] Association. Diabetes Care. 2016.39(Suppl 1). Performed By: #### 3 016-3 #### [facility] CLIA [id number] [address] [place] [address] [place] Potassium [Moles/Vol] 3.9 mmol/L Normal 3.7-5.1 [facility] Comment on above: Order Comment: Speci men Type: BLOOD SPECIMEN Ordering Facility: [facility] Address: [address] [place] [address] Performed By: #### 3 016-3 #### [facility] CLIA [id number] [address] [place] [address] [place] Protein [Mass/Vol] 7.1 g/dL Normal 6.3-8.0 [facility] Comment on above: Order Comment: Speci men Type: BLOOD SPECIMEN Ordering Facility: [facility] Address: [address] [place] [address] Performed By: #### 3 016-3 #### [facility] CLIA [id number] [address] [place] [address] [place] Sodium [Moles/Vol] 137 mmol/L Normal 136-144 [facility] Comment on above: Order Comment: Speci men Type: BLOOD SPECIMEN Ordering Facility: [facility] Address: [address] [place] [address] Performed By: #### 3 016-3 #### [facility] CLIA [id number] [address] [place] [address] [place] Urea nitrogen [Mass/Vol] 16 mg/dL Normal 9-24 [facility] Comment on above: Order Comment: Speci men Type: BLOOD SPECIMEN Ordering Facility: [facility] Address: [address] [place] [address] Performed By: #### 3 016-3 #### [facility] CLIA [id number] [address] [place] [address] [place] HbA1c (Bld)on 04-04-2024 Average glucose Estimated from glycated hemoglobin (Bld) [Mass/Vol] 134 mg/dL Normal [facility] Comment on above: Order Comment: Speci men Type: BLOOD SPECIMEN Ordering Facility: [facility] Address: [address] [place] [address] Result Comment: eAG: (Estimated average glucose) is a calculated value from HgbA1c and is medical billing representative of the average blood glucose level in the last 2-3 month period. Performed By: #### 3 016-3 #### [facility] CLIA [id number] [address] [place] [address] [place] HbA1c (Bld) [Mass fraction] 6.3 % High 4.3-5.6 [facility] Comment on above: Order Comment: Speci men Type: BLOOD SPECIMEN Ordering Facility: [facility] Address: [address] [place] [address] Result Comment: Amer [place] Diabetes Association guidelines indicate that patients with HgbA1c in the range 5.7-6.4% are at increased risk for development of diabetes, and intervention by lifestyle modification may be beneficial. HgbA1c greater or equal to 6.5% is considered diagnostic of diabetes. Performed By: #### 3 016-3 #### [facility] CLIA [id number] [address] [place] [address] [place] TSH SerPl-aCncon 04-04-2024 TSH Qn 1.120 m[IU]/L Normal 0.270-4.200 [facility] Comment on above: Order Comment: Speci men Type: BLOOD SPECIMEN Ordering Facility: [facility] Address: [address] [place] [address] Performed By: #### 3 016-3 #### [facility] CLIA [id number] [address] [place] [address] [place] CNOVon 03-29-2024 CNOV Office Visit (AGFAMP LE) PA CAMPA ([id number]) 1990 M Date Time Provider Department 03/29/24 8:40 AM RHONDA PADILLA During your visit today, we recorded the following information about you: Temperature Pulse Respiration Blood pressure 98 degrees 83/minute 16/minute 122/70 Weight Height 91.6 kg 1.676 m Rhonda Padilla, LEYDI.SHIPPING AND RECEIVING CLERK 03/29/2024 11:33 AM Signed CHIEF COMPLAINT: Pa Campa is a 33 year old male who presents for fatigue. He states he started feeling very fatigued about 3-4 weeks ago. I reviewed past medical, surgical, social, and family histories today and updated chart. Allergies, chronic medications, and supplements were also reviewed. 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 No pertinent past medical history. PAST SURGICAL HISTORY Procedure Laterality Date UNLISTED PROCEDURE HUMERUS/ELBOW Right 1997 reset bone in lower right arm Social History Tobacco Use Smoking status: Former Types: Cigarettes Smokeless tobacco: Former Types: Chew Vaping Use Vaping Use: Former Substance Use Topics Alcohol use: Not Currently Drug use: Never ALLERGIES No Known Allergies Family History Problem Relation Age of Onset Heart Attack Mother Hypertension Father Current Outpatient Medications Medication Sig Dispense Refill escitalopram oxalate (LEXAPRO) 20 mg tablet Take 1 tablet by mouth every afternoon. 30 tablet 2 multivit-min/folic/vit K/lycop (ONE-A-DAY MEN'S MULTIVITAMIN ORAL) Take 1 tablet by mouth once daily. No current facility-administered medications for this visit. Review of Systems Constitutional: Positive for fatigue and unexpected weight change. Negative for appetite change, chills, diaphoresis and fever. Respiratory: Positive for apnea. Negative for cough, chest tightness, shortness of breath and wheezing. Cardiovascular: Negative for chest pain, palpitations and leg swelling. Gastrointestinal: Negative for abdominal pain, diarrhea, nausea and vomiting. Musculoskeletal: Negative. Skin: Negative. Neurological: Negative for dizziness, light-headedness and headaches. Hematological: Negative. Psychiatric/Behavioral: Positive for sleep disturbance. Negative for dysphoric mood. The patient is not nervous/anxious. BP 122/70 Pulse 83 Temp 98 Resp 16 Ht 5' 6 (1.68m) Wt 202 lb (91.6kg) SpO2 98% BMI 32.62 kg/(m2). Physical Exam Vitals and nursing note reviewed. Constitutional: Appearance: He is obese. HENT: Mouth/Throat: Mouth: Mucous membranes are moist. Pharynx: Oropharynx is clear. Eyes: Pupils: Pupils are equal, round, and reactive to light. Neck: Thyroid: No thyromegaly. Cardiovascular: Rate and Rhythm: Normal rate and regular rhythm. Heart sounds: Normal heart sounds, S1 normal and S2 normal. Pulmonary: Effort: Pulmonary effort is normal. Breath sounds: Normal breath sounds and air entry. Musculoskeletal: Cervical back: Neck supple. Skin: General: Skin is warm and dry. Neurological: Mental Status: He is alert and oriented to person, place, and time. Psychiatric: Mood and Affect: Mood normal. Behavior: Behavior normal. Cognition and Memory: Cognition normal. ASSESSMENT/PLAN: 1. Fatigue, unspecified type - ICD9: 780.79, ICD10: R53.83 (primary diagnosis) - Probably multifactorial but leading differential is possible sleep apnea - THYROID STIMULATING HORMONE - HEMOGLOBIN A1C - COMPREHENSIVE METABOLIC PANEL - COMPLETE BLOOD COUNT AND DIFFERENTIAL - VITAMIN D 25 HYDROXY - HOME SLEEP APNEA TEST (HSAT) 2. Excessive daytime sleepiness - ICD9: 780.54, ICD10: G47.19 STOP-BANG= 3 - HOME SLEEP APNEA TEST (HSAT) 3. Loud snoring - ICD9: 786.09, ICD10: R06.83 - HOME SLEEP APNEA TEST (HSAT) 4. REDD (generalized anxiety disorder) - ICD9: 300.02, ICD10: F41.1 - Currently on Lexapro 20 mg daily 5. Screening for diabetes mellitus - ICD9: V77.1, ICD10: Z13.1 - HEMOGLOBIN A1C - COMPREHENSIVE METABOLIC PANEL 6. Screening for deficiency anemia - ICD9: V78.1, ICD10: Z13.0 - COMPLETE BLOOD COUNT AND DIFFERENTIAL 7. Vitamin D deficiency - ICD9: 268.9, ICD10: E55.9 - VITAMIN D 25 HYDROXY New medication(s) prescribed today: None. Counseling completed in ado (more content not included)... Normal [facility] Vital Signs Date Time Vital Sign Value Performing Clinician Facility 11-27-2024 13:47-0400 Body mass index (BMI) [Ratio] 34.69 kg/m2 Armaan Soria PA-C Work Phone: [facility] 11-27-2024 13:47-0400 Body temperature 97.9 [degF] Armaan Clutter PA-C Work Phone: [facility] 11-27-2024 13:47-0400 Body weight 97.5 kg Armaan Clutter PA-C Work Phone: [facility] 11-27-2024 13:47-0400 Diastolic blood pressure 70 mm[Hg] Armaan Clutter PA-C Work Phone: [facility] 11-27-2024 13:47-0400 Heart rate 106 /min Armaan Clutter PA-C Work Phone: [facility] 11-27-2024 13:47-0400 Respiratory rate 16 /min Armaan Clutter PA-C Work Phone: [facility] 11-27-2024 13:47-0400 SaO2% (BldA) [Mass fraction] 97 % Armaan Clutter PA-C Work Phone: [facility] 11-27-2024 13:47-0400 Systolic blood pressure 120 mm[Hg] Armaan Clutter PA-C Work Phone: [facility] 10-09-2024 08:29-0500 Body height 167.64 cm Rhonda Queden TURRET PUNCH OPERATOR-C Work Phone: [facility] 10-09-2024 08:29-0500 Body mass index (BMI) [Ratio] 34.3 kg/m2 Rhonda Queden TURRET PUNCH OPERATOR-C Work Phone: [facility] 10-09-2024 08:29-0500 Body weight 96.61 kg Rhonda Queden TURRET PUNCH OPERATOR-C Work Phone: [facility] 10-04-2024 15:28-0500 Body height 167.6 cm Page Sheets DO Work Phone: [facility] 10-04-2024 15:28-0500 Body mass index (BMI) [Ratio] 33.89 kg/m2 Page Sheets DO Work Phone: [facility] 10-04-2024 15:28-0500 Body temperature 98.1 [degF] Page Sheets DO Work Phone: [facility] 10-04-2024 15:28-0500 Body weight 95.25 kg Page Sheets DO Work Phone: [facility] 10-04-2024 15:28-0500 Diastolic blood pressure 70 mm[Hg] Page Sheets DO Work Phone: [facility] 10-04-2024 15:28-0500 Heart rate 107 /min Page Sheets DO Work Phone: [facility] 10-04-2024 15:28-0500 Respiratory rate 16 /min Page Sheets DO Work Phone: [facility] 10-04-2024 15:28-0500 SaO2% (BldA) [Mass fraction] 98 % Page Sheets DO Work Phone: [facility] 10-04-2024 15:28-0500 Systolic blood pressure 124 mm[Hg] Page Sheets DO Work Phone: [facility] 10-02-2024 08:35-0500 Body mass index (BMI) [Ratio] 32.95 kg/m2 Karolina Juares SERVICE ATTENDANT CAFETERIA.SHIPPING AND RECEIVING CLERK Work Phone: [facility] 10-02-2024 08:35-0500 Body temperature 98.1 [degF] Karolina Juares SERVICE ATTENDANT CAFETERIA.SHIPPING AND RECEIVING CLERK Work Phone: [facility] 10-02-2024 08:35-0500 Body weight 92.6 kg Karolina Juares SERVICE ATTENDANT CAFETERIA.SHIPPING AND RECEIVING CLERK Work Phone: [facility] 10-02-2024 08:35-0500 Diastolic blood pressure 80 mm[Hg] Karolina Juares SERVICE ATTENDANT CAFETERIA.SHIPPING AND RECEIVING CLERK Work Phone: [facility] 10-02-2024 08:35-0500 Heart rate 84 /min Karolina Juares SERVICE ATTENDANT CAFETERIA.SHIPPING AND RECEIVING CLERK Work Phone: [facility] 10-02-2024 08:35-0500 Respiratory rate 16 /min Karolina Juares SERVICE ATTENDANT CAFETERIA.SHIPPING AND RECEIVING CLERK Work Phone: [facility] 10-02-2024 08:35-0500 SaO2% (BldA) [Mass fraction] 98 % Karolina Juares SERVICE ATTENDANT CAFETERIA.SHIPPING AND RECEIVING CLERK Work Phone: [facility] 10-02-2024 08:35-0500 Systolic blood pressure 122 mm[Hg] Karolina Juares SERVICE ATTENDANT CAFETERIA.SHIPPING AND RECEIVING CLERK Work Phone: [facility] 06-30-2024 14:00-0400 Diastolic blood pressure 66 mm[Hg] Otis Giraldo [facility] 06-30-2024 14:00-0400 Heart rate 83 /min Otis Giraldo [facility] 06-30-2024 14:00-0400 Mean blood pressure 80 mm[Hg] Otis Giraldo [facility] 06-30-2024 14:00-0400 Respiratory rate 16 /min Otis Giraldo [facility] 06-30-2024 14:00-0400 SaO2% (BldA) [Mass fraction] 95 % Otis Giraldo [facility] 06-30-2024 14:00-0400 Systolic blood pressure 107 mm[Hg] Otis Giraldo [facility] 06-30-2024 03:03-0400 Diastolic blood pressure 80 mm[Hg] Otis Giraldo [facility] 06-30-2024 03:03-0400 Heart rate 98 /min Otis Giraldo [facility] 06-30-2024 03:03-0400 Mean blood pressure 94 mm[Hg] Otis Giraldo [facility] 06-30-2024 03:03-0400 SaO2% (BldA) [Mass fraction] 99 % Otis Giraldo [facility] 06-30-2024 03:03-0400 Systolic blood pressure 121 mm[Hg] Otis Giraldo [facility] 06-30-2024 01:00-0400 Diastolic blood pressure 71 mm[Hg] Otis Enzo [facility] 06-30-2024 01:00-0400 Heart rate 86 /min Otis Enzo [facility] 06-30-2024 01:00-0400 Mean blood pressure 90 mm[Hg] Otischela Giraldo [facility] 06-30-2024 01:00-0400 SaO2% (BldA) [Mass fraction] 94 % Otis Enzo [facility] 06-30-2024 01:00-0400 Systolic blood pressure 127 mm[Hg] Otis Giraldo [facility] 06-30-2024 00:30-0400 Respiratory rate 16 /min Otis Enzo [facility] 06-29-2024 23:51-0400 Blood Pressure Location Otis Giraldo [facility] 06-29-2024 22:00-0400 Body temperature 97.52 [degF] Otis Giraldo [facility] 06-29-2024 22:00-0400 Heart rate 103 /min Otis Enzo [facility] 03-29-2024 08:37-0400 Body height 167.6 cm Rhonda Padilla SERVICE ATTENDANT CAFETERIA.SHIPPING AND RECEIVING CLERK Work Phone: [facility] 03-29-2024 08:37-0400 Body mass index (BMI) [Ratio] 32.6 kg/m2 Rhonda Queden SERVICE ATTENDANT CAFETERIA.SHIPPING AND RECEIVING CLERK Work Phone: [facility] 03-29-2024 08:37-0400 Body temperature 98.01 [degF] Rhonda Queden SERVICE ATTENDANT CAFETERIA.SHIPPING AND RECEIVING CLERK Work Phone: [facility] 03-29-2024 08:37-0400 Body weight 91.63 kg Rhonda Queden SERVICE ATTENDANT CAFETERIA.SHIPPING AND RECEIVING CLERK Work Phone: [facility] 03-29-2024 08:37-0400 Diastolic blood pressure 70 mm[Hg] Rhonda Queden SERVICE ATTENDANT CAFETERIA.SHIPPING AND RECEIVING CLERK Work Phone: [facility] 03-29-2024 08:37-0400 Heart rate 83 /min Rhonda Queden SERVICE ATTENDANT CAFETERIA.SHIPPING AND RECEIVING CLERK Work Phone: [facility] 03-29-2024 08:37-0400 Respiratory rate 16 /min Rhonda Queden SERVICE ATTENDANT CAFETERIA.SHIPPING AND RECEIVING CLERK Work Phone: [facility] 03-29-2024 08:37-0400 SaO2% (BldA) [Mass fraction] 98 % Rhonda Queden SERVICE ATTENDANT CAFETERIA.SHIPPING AND RECEIVING CLERK Work Phone: [facility] 03-29-2024 08:37-0400 Systolic blood pressure 122 mm[Hg] Rhonda Queden SERVICE ATTENDANT CAFETERIA.SHIPPING AND RECEIVING CLERK Work Phone: [facility] Encounters Encounter Date Encounter Type Care Provider Facility Start: 02-28-2025 ambulatory [facility] Facility:[facility] Start: 02-24-2025 End: 02-25-2025 Refill Mayuri Tarango SERVICE ATTENDANT CAFETERIA.SHIPPING AND RECEIVING CLERK Work Phone: [facility] Comment on above: Refill Request Start: 02-09-2025 End: 02-12-2025 Refill Page C Sheets DO Work Phone: [facility] Comment on above: Refill Request Start: 01-05-2025 End: 01-07-2025 Refill Page C Sheets DO Work Phone: [facility] Comment on above: Refill Request Start: 12-03-2024 End: 12-04-2024 Refill Page C Sheets DO Work Phone: [facility] Comment on above: Refill Request Start: 11-27-2024 End: 11-27-2024 ambulatory PAGE C SHEETS Facility:[facility] Start: 11-27-2024 End: 11-27-2024 Office outpatient new 30 minutes Armaan Soria PA-C Work Phone: [facility] Comment on above: Sore throat (Primary Dx); Acute non-recurrent streptococcal tonsillitis Start: 11-03-2024 End: 11-05-2024 Refill Page C Sheets DO Work Phone: [facility] Comment on above: Refill Request Start: 10-19-2024 End: 10-22-2024 Follow-up encounter Page C Sheets DO Work Phone: [facility] Start: 10-16-2024 End: 10-16-2024 Telephone encounter Page C Sheets DO Work Phone: [facility] Comment on above: Forms ([facility] Rehabilit ation Services Initial Evaluation) Start: 10-12-2024 End: 10-12-2024 Discharged Recurring Rosenda SNIDER -Physical Therapy Work Phone: Start: 10-12-2024 End: 10-12-2024 ambulatory Rhonda Padilla TURRET PUNCH OPERATOR-C Work Phone: [facility] Work Phone: Start: 10-09-2024 End: 10-09-2024 Patient encounter procedure Rosenda SNIDER -[facility] Work Phone: Start: 10-09-2024 End: 10-09-2024 ambulatory Rhonda Padilla TURRET PUNCH OPERATOR Facility[facility] Start: 10-04-2024 End: 10-04-2024 Subsequent hospital visit by physician [facility] Comment on above: Chronic pain of righ t knee [M25.561, G89.29] Sciatica, right side [M54.31] Start: 10-04-2024 End: 10-04-2024 Patient encounter procedure Page C Sheets DO Work Phone: [facility] Comment on above: Chronic pain of righ t knee (Primary Dx); Sciatica, right side; Screening cholesterol level; NAHUM (obstructive sleep apnea) Start: 10-04-2024 End: 10-04-2024 ambulatory PAGE C SHEETS Facility:[facility] Start: 10-02-2024 ambulatory PAGE C SHEETS Facil ity:[facility] Start: 10-02-2024 End: 10-02-2024 Subsequent hospital visit by physician [facility] Comment on above: Right leg pain [M79. 604] Start: 10-02-2024 End: 10-02-2024 ambulatory PAGE C SHEETS Facility:[facility] Start: 10-02-2024 End: 10-02-2024 Patient encounter procedure Karolina Yany SERVICE ATTENDANT CAFETERIA.SHIPPING AND RECEIVING CLERK Work Phone: [facility] Comment on above: Right leg pain (Prim ashanti Dx) Start: 07-04-2024 End: 07-04-2024 ambulatory Shelly Abreu [facility] Comment on above: ED Outreach ([facility] 06/29/24) Start: 06-29-2024 End: 06-30-2024 Emergency department patient visit Otis Giraldo [facility] Start: 06-13-2024 End: 06-13-2024 ambulatory Yolanda Rocha LPN [facility] Start: 06-11-2024 End: 06-11-2024 Emergency department patient visit PRADEEP BYRD [facility] Start: 05-30-2024 End: 05-31-2024 Refill Page C Sheets DO Work Phone: [facility] Comment on above: Refill Request Start: 05-29-2024 End: 05-29-2024 ambulatory Rhonda Padilla TURRET PUNCH OPERATOR Facility:[facility] Start: 05-18-2024 End: 05-18-2024 ambulatory Rhonda Queden TURRET PUNCH OPERATOR Facility:[facility] Start: 05-16-2024 End: 05-16-2024 Telephone encounter Rhonda A Randy SERVICE ATTENDANT CAFETERIA.SHIPPING AND RECEIVING CLERK Work Phone: [facility] Comment on above: PAP Therapy Follow U p Start: 05-04-2024 End: 05-04-2024 ambulatory Rhonda Padilla TURRET PUNCH OPERATOR Facility:[facility] Start: 05-02-2024 End: 05-02-2024 ambulatory Mandi Mesa [facility] Comment on above: ED OUTREACH (ED OUTR EACH/WYNONA /04/26/2024) Start: 04-26-2024 End: 04-26-2024 Emergency department patient visit Rohnda Padilla TURRET PUNCH OPERATOR Facility:[facility] Start: 04-25-2024 End: 04-25-2024 Refill Page C Sheets DO Work Phone: [facility] Comment on above: Refill Request Start: 04-24-2024 End: 07-05-2024 Telephone encounter Rhonda Sedrick Randy SERVICE ATTENDANT CAFETERIA.SHIPPING AND RECEIVING CLERK Work Phone: [facility] Comment on above: Results; Orders Start: 04-09-2024 End: 04-10-2024 ambulatory RHONDA A GILMARLALITA Facility:[facility] Start: 04-06-2024 Telephone encounter Page C Sheets DO Work Phone: [facility] Comment on above: Results Start: 04-04-2024 End: 04-04-2024 ambulatory RHONDAYULI PADILLA Facility:[facility] Start: 04-03-2024 Chart [facility] Work Phone: Neurology Start: 03-29-2024 End: 03-29-2024 Patient encounter procedure Rhonda A Randy SERVICE ATTENDANT CAFETERIA.SHIPPING AND RECEIVING CLERK Work Phone: [facility] Comment on above: Fatigue, unspecified type (Primary Dx); Excessive daytime sleepiness; Loud snoring; REDD (generalized anxiety disorder); Screening for diabetes mellitus; Screening for deficiency anemia; Vitamin D deficiency Start: 03-29-2024 End: 03-29-2024 ambulatory PAGE C SHEETS Facility:[facility] Start: 12-13-2023 Refill Page Gary ets DO Work Phone: [facility] Comment on above: Refill Request Start: 10-21-2023 ambulatory Page Gary ets DO Work Phone: [facility] Comment on above: Medication Renewal Procedures Date Procedure Procedure Detail Performing Clinician Start: 10-09-2024 X-ray of lumbosacral spine Rhonda Padilla TURRET PUNCH OPERATOR-C Work Phone: Start: 10-02-2024 Dup-scan xtr veins unilateral/limited study Karolina Mariegs SERVICE ATTENDANT CAFETERIA.SHIPPING AND RECEIVING CLERK Work Phone: Plan of Treatment Date Care Activity Detail Author Start: 04-26-2034 Urine microalbumin profile DTaP,Tdap,Td Vaccine (2 - Td or Tdap) [facility] Start: 05-06-2025 Influenza vaccination Influenz a Vaccine (Season Ended) [facility] Start: 03-04-2025 Influenza vaccination Influenza Vacc ine (#1) [facility] Comment on above: Postponed from 05/06 (Declined at this time) Start: 12-10-2024 End: 12-10-2024 ambulatory 12/10/2024 1:00 PM EDT Results Only [facility] [address] [place] [address] [facility] Start: 10-09-2024 Patient referral [facility] Work Phone: Start: 10-04-2024 End: 01-03-2025 Lipid 1996 panel - Serum or Plasma LIPID PANEL BASIC Lab Routine Screening cholesterol level Expected: 10/04/2024, Expires: 01/03/2025 [facility] Work Phone: Comment on above: Expected: 10/04/2024 , Expires: 01/03/2025 Start: 09-14-2024 Urine microalbumin profile DTaP,Tdap,Td Vaccine (1 - Tdap) [facility] Comment on above: Postponed from 08/06 (Declined at this time) Start: 2024 Lipid panel [address] Scre[address] [facility] Start: 05-06-2024 Influenza vaccination [facility] Start: 04-10-2024 End: 04-10-2024 Patient encounter procedure 04/10/2024 10:00 AM EDT Office Visit [place] [address] Fatigue, unspecified type [R53.83] Neurology Comment on above: Fatigue, unspecified type [R53.83] Start: 03-29-2024 End: 06-28-2024 25-hydroxyvitamin D3 [Mass/volume] in Serum or Plasma VITAMIN D 25 HYDROXY Lab Routine Fatigue, unspecified type Vitamin D deficiency Expected: 03/29/2024, Expires: 06/28/2024 [facility] Comment on above: Expected: 03/29/2024 , Expires: 06/28/2024 Start: 03-29-2024 End: 06-28-2024 CBC W Auto Differential panel - Blood COMPLETE BLOOD COUNT AND DIFFERENTIAL Lab Routine Fatigue, unspecified type Screening for deficiency anemia Expected: 03/29/2024, Expires: 06/28/2024 [facility] Comment on above: Expected: 03/29/2024 , Expires: 06/28/2024 Start: 03-29-2024 End: 06-28-2024 Comprehensive metabolic 2000 panel - Serum or Plasma COMPREHENSIVE METABOLIC PANEL Lab Routine Fatigue, unspecified type Screening for diabetes mellitus Expected: 03/29/2024, Expires: 06/28/2024 [facility] Comment on above: Expected: 03/29/2024 , Expires: 06/28/2024 Start: 03-29-2024 End: 06-28-2024 Hemoglobin A1c in Blood HEMOGLOBIN A1C Lab Routine Fatigue, unspecified type Screening for diabetes mellitus Expected: 03/29/2024, Expires: 06/28/2024 [facility] Comment on above: Expected: 03/29/2024 , Expires: 06/28/2024 Start: 03-29-2024 End: 06-28-2024 Thyrotropin [Units/volume] in Serum or Plasma THYROID STIMULATING HORMONE Lab Routine Fatigue, unspecified type Expected: 03/29/2024, Expires: 06/28/2024 [facility] Work Phone: Comment on above: Expected: 03/29/2024 , Expires: 06/28/2024 Start: 03-04-2024 Influenza vaccination Influenza Vacc ine (#1) [facility] Comment on above: Postponed from 05/06 (Declined at this time) Start: 09-05-2023 Behavioral Health Screening Behavioral Health Screening [facility] Start: 2008 Hepatitis B Vaccine (1 of 3 - 19+ 3-dose series) Hepatitis B Vaccine (1 of 3 - 19+ 3-dose series) [facility] Start: 2007 Depression Screening Depression Scre ening [facility] [facility] Start: 1989 Hepatitis B Vaccine (1 of 3 - 3-dose series) Hepatitis B Vaccine (1 of 3 - 3-dose series) [facility] End: 03-29-2025 HOME SLEEP APNEA TEST (HSAT) HOME SLEEP APNEA TEST (HSAT) Procedures Routine Fatigue, unspecified type Excessive daytime sleepiness Loud snoring 1 Occurrences starting 03/29/2024 until 03/29/2025 [facility] Comment on above: 1 Occurrences starti ng 03/29/2024 until 03/29/2025 MR Lumbar spine [facility] End: 11-03-2025 PAP TITRATION PSG (CPAP, BIPAP, ASV) PAP TITRATION PSG (CPAP, BIPAP, ASV) Procedures Routine NAHUM (obstructive sleep apnea) 1 Occurrences starting 10/04/2024 until 11/03/2025 [facility] Comment on above: 1 Occurrences starti ng 10/04/2024 until 11/03/2025 Patient referral [facility] Work Phone: STREP A MOLECULAR (POC) STREP A MOLECULAR (POC) Microbiology Routine Sore throat Ordered: 11/27/2024 [facility] Work Phone: Comment on above: Ordered: 11/27/2024 End: 10-02-2025 US Lower extremity vein US LEG VEIN DVT UNL VAS LAB Vascular Lab STAT Right leg pain 1 Occurrences starting 10/02/2024 until 10/02/2025 [facility] Work Phone: Comment on above: 1 Occurrences starti ng 10/02/2024 until 10/02/2025 XR Knee - bilateral AP XR KNEE S URVEY ARTHRITIS 1V AP BILATERAL Radiology Routine Chronic pain of right knee 10/04/2024 4:38 PM [facility] Work Phone: XR Knee - right AP a nd Lateral XR KNEE LIMITED 2V AP/LAT RIGHT Radiology Routine Chronic pain of right knee 10/04/2024 4:38 PM [facility] Work Phone: XR Lumbar spine AP a nd Lateral and oblique XR LUMBAR PARS DEFECT 4V AP/LAT/BOTH OBL Radiology Routine Sciatica, right side 10/04/2024 4:38 PM [facility] Work Phone: Immunizations Immunization Date Immunization Notes Care Provider Fa [facility] 04-26-2024 tetanus toxoid, redu jennifer diphtheria toxoid, and acellular pertussis vaccine, adsorbed Xr [facility] Payers Date Payer Category Payer Unknown [id number] 2024 Private Health Insurance MMO [employer] [id number] 2024 Unknown [id number] 2024 Self-pay 2023 Unknown [id number] 2021 Unknown [id number] 2021 Unknown [id number] 1989 Unknown [id number]. 902 1989 Unknown [id number]. 727 1989 Unknown [id number] [id number]. 727 Unknown ANTHEM 0 [id number] Unknown [id number] [id number]. 462 Unknown [id number] [id number]. 462 Unknown [id number] [id number]. 462 Unknown [id number] 2.16.840.1.045524.3.579.2. 462 Unknown [id number] 2.16.840.1.329683.3.579.2. 462 Unknown [id number] 2.16.840.1.806040.3.579.2. 462 Unknown [id number] 2.16.840.1.249891.3.579.2. 462 Unknown [id number] 2.16.840.1.135212.3.579.2. 462 Unknown [id number] 2.16.840.1.638552.3.579.2. 462 Unknown [id number]. 462 Social History Date Type Detail Facility Start: 09-14-2023 End: 03-29-2024 Tobacco smoking status NHIS Ex-smoker [facility] History of tobacco use Current smoker [facility] History of tobacco use Cigarette Smoker C [facility] Start: 09-14-2023 End: 03-29-2024 Tobacco use and exposure Former smokeless tobacco user [facility] Start: 09-14-2023 Alcohol intake Lifetime non-d deb (finding) [facility] Start: 09-14-2023 End: 10-04-2024 History of Social function [facility] Work Phone: Start: 09-14-2023 End: 10-04-2024 Tobacco use panel [facility] Work Phone: Adult Depression Screening Assessment 0 [facility] Work Phone: Start: 1990 Sex Assigned At Not on file C [facility] History of tobacco use Chews Tobacco [facility] Start: 03-29-2024 End: 10-04-2024 Alcohol intake Ex-drinker (finding) [facility] Start: 1990 Sex Assigned At Male W [facility] Functional Status Date Assessment Result Facility 06-29-2024 Functional Status N/A [facility] Clinical Notes 12-14-2023 to 02-25-2025 Telephone Encounter - Shelly Abreu MA - 02/25/2025 8:36 AM EDTTelephone Encounter - Shelly Abreu MA - 02/25/2025 8:36 AM EDTTelephone Encounter - Shelly Abreu MA - 02/11/2025 8:04 AM EDT Note Date & Type Note Facility 02-25-2025 Telephone encount er Note patient electronically requesting refills as follows: Last seen 10/04/24 . Last refill 02/12/25 . Requested Prescriptions Pending Prescriptions Disp Refills cyclobenzaprine (FLEXERIL) 10 mg tablet 90 tablet 0 Sig: Take 1 tablet by mouth three times a day as needed for muscle spasm. Please review and advise. Shelly Abreu MA [facility] 02-25-2025 Miscellaneous Notes Formattin g of this note is different from the original. patient electronically requesting refills as follows: Last seen 10/04/24 . Last refill 02/12/25 . Requested Prescriptions Pending Prescriptions Disp Refills cyclobenzaprine (FLEXERIL) 10 mg tablet 90 tablet 0 Sig: Take 1 tablet by mouth three times a day as needed for muscle spasm. Please review and advise. Shelly Abreu MA documented in this encounter [facility] 02-11-2025 Telephone encount er Note patient electronically requesting refills as follows: Last seen 10/04/24 . Last refill 11/05/24 . Requested Prescriptions Pending Prescriptions Disp Refills escitalopram oxalate (LEXAPRO) 20 mg tablet 30 tablet 11 cyclobenzaprine (FLEXERIL) 10 mg tablet 90 tablet 0 Sig: Take 1 tablet by mouth three times a day as needed for muscle spasm. Please review and advise. Shelly Abreu MA [facility] 02-11-2025 Miscellaneous Notes Formattin g of this note is different from the original. patient electronically requesting refills as follows: Last seen 10/04/24 . Last refill 11/05/24 . Requested Prescriptions Pending Prescriptions Disp Refills escitalopram oxalate (LEXAPRO) 20 mg tablet 30 tablet 11 cyclobenzaprine (FLEXERIL) 10 mg tablet 90 tablet 0 Sig: Take 1 tablet by mouth three times a day as needed for muscle spasm. Please review and advise. Shelly Abreu MA documented in this encounter [facility] 01-10-2025 Discharge summary Note Date/Time January 10, 2025 11:28am [facility] [address] [place] [address]. [address] [place] [address] / REHABILITATION SERVICES DISCHARGE SUMMARY MR#: [id number] Acct: [id number] Name: PA CAMPA Rep #: [id number] : 1990 34 From: Cert. OZ MayT, [facility] Referring DrLacey: TYLOR Chairez Status: REG R Insurance: [facility] SELF PAY INSURANCE Patient Information Patient Information: PA CAMPA was seen in my office for initial evaluation on 10/12/24. The following Plan of Care was established for this patient: POC Established Initial Frequency: 2x /Week Initial Duration: 4 Weeks Anticipated Interventions Patient/Client Instruction: Educate patient on: Condition and Plan of Care For the Purpose of:: To decrease pain, To increase ROM, To improve muscle performance and motor function, To improve ability to perform ADL's, To increasetolerance to activity/condition/position, To improve ability of physical actionsfor home/community/work/leisure, To improve health of tissue, To decrease soft tissue restriction, To increase flexibility/ROM, To reduce risk of recurrence, To prevent re-injury and To improve tolerance to ADL's Therapeutic Exercise to Include: Strength training, Endurance training, Posturaltraining, Flexibilty training, Dynamic Lumbar Stabilization and Rochelle Exercises For the Purpose of:: To decrease pain, To increase ROM, To improve muscle performance and motor function, To improve ability to perform ADL's, To increasetolerance to activity/condition/position, To improve ability of physical actionsfor home/community/work/leisure, To improve health of tissue, To decrease soft tissue restriction, To increase flexibility/ROM, To reduce risk of recurrence and To improve tolerance to ADL's TENS: Yes IF ES: Yes Cryotherapy (ice pack, ice massage): Yes Thermo therapy (hot pack): Yes Ultrasound (thermal/non thermal): Yes For the Purpose of:: To decrease pain, To increase ROM, To improve nutrient delivery to tissue, To increase oxygenation perfusion, To improve health of tissue and To decrease soft tissue restriction Last Seen Last Seen: This patient was last seen in our office . Pertinent comments regarding their Physical therapy will appear below: Patient was seen for PT for evaluation for spinal stenosis and HEP At this point I will be discontinuing this patient from physical therapy. I would be happy to see this patient again in the future if found appropriate by the physician. Thank you! Jose Miguel Kumar, PT, Cert T, VINH Balance/Gait/Functional tests Balance/Special Test Scores Oswestry Low Back Score: 24 <Electronically signed by Jose Miguel Kumar PT, Cert. REKHA, VINH> 01/10/25 1128 CC: TIANNA Padilla; TYLOR Chairez ~ ANNA Signed [facility] Work Phone: 1(365) 265-530905-08-2025 Discharge summary [facility] Physical Therapy [address] [place] [address] / REHABILITATION SERVICES DISCHARGE SUMMARY MR#: [id number] Acct: [id number] Name: CAMPAPA Rep #: [id number] : 1990 34 From: Jimena May. T, OCS Referring Dr.: TYLOR Chairez Status: REG RCR Insurance: [facility] SELF PAY INSURANCE Patient Information Patient Information: PA CAMPA was seen in my office for initial evaluation on 10/12/24. The following Plan of Care was established for this patient: POC Established Initial Frequency: 2x /Week Initial Duration: 4 Weeks Anticipated Interventions Patient/Client Instruction: Educate patient on: Condition and Plan of Care For the Purpose of:: To decrease pain, To increase ROM, To improve muscle performance and motor function, To improve ability to perform ADL's, To increasetolerance to activity/condition/position, To improve ability of physical actionsfor home/community/work/leisure, To improve health of tissue, To d ecrease soft tissue restriction, To increase flexibility/ROM, To reduce risk of recurrence, To prevent re-injury and To improve tolerance to ADL's Therapeutic Exercise to Include: Strength training, Endurance training, Posturaltraining, Flexibilty training, Dynamic Lumbar Stabilization and Rochelle Exercises For the Purpose of:: To decrease pain, To increase ROM, To improve muscle performance and motor function, To improve ability to perform ADL's, To increasetolerance to activity/condition/position, To improve ability of physical actionsfor home/community/work/leisure, To improve health of tissue, To d ecrease soft tissue restriction, To increase flexibility/ROM, To reduce risk of recurrence and To improve tolerance to ADL's TENS: Yes IF ES: Yes Cryotherapy (ice pack, ice massage): Yes Thermo therapy (hot pack): Yes Ultrasound (thermal/non thermal): Yes For the Purpose of:: To decrease pain, To increase ROM, To improve nutrient delivery to tissue, To increase oxygenation perfusion, To improve health of tissue and To decrease soft tissue restriction Last Seen Last Seen: This patient was last seen in our office . Pertinent comments regarding their Physical therapy willappear below: Patient was seen for PT for evaluation for spinal stenosis and HEP At this point I will be discontinuing this patient from physical therapy. I would be happy to see this patient again in the future if found appropriate by the physician. Thank you! Jose Miguel Kumar, PT, Cert MDT, OCS Balance/Gait/Functional tests Balance/Special Test Scores Oswestry Low Back Score: 24 01/10/25 1128 CC: TIANNA Padilla; TYLOR Chairez ~ ANNA Signed [facility]05-05-2025 Telephone encounter Note* Telephone Encounter - Elvira Judd MA - 01/07/2025 8:32 AM EDT Pharmacy requesting refills as follows: Last Office Visit 10/04/24 NOV none. Last Refill 12/04/24. Requested Prescriptions Pending Prescriptions Disp Refills cyclobenzaprine (FLEXERIL) 10 mg tablet 90 tablet 0 Sig: Take 1 tablet by mouth three times a day as needed for muscle spasm. Please review and advise. Elvira Judd MA [facility]05-05-2025 Miscellaneous Notes* Telephone Encounter - Elvira Judd MA - 01/07/2025 8:32 AM EDT Pharmacy requesting refills as follows: Last Office Visit 10/04/24 NOV none. Last Refill 12/04/24. Requested Prescriptions Pending Prescriptions Disp Refills cyclobenzaprine (FLEXERIL) 10 mg tablet 90 tablet 0 Sig: Take 1 tablet by mouth three times a day as needed for muscle spasm. Please review and advise. Elvira Judd [facility] Telephone encounter Note * Telephone Encounter - Elvira Judd MA - 12/04/2024 7:52 AM EDT Pharmacy requesting refills as follows: Last Office Visit 10/04/24 NOV none. Last Refill 11/19/24. Requested Prescriptions Pending Prescriptions Disp Refills cyclobenzaprine (FLEXERIL) 10 mg tablet 90 tablet 0 Sig: Take 1 tablet by mouth three times a day as needed for muscle spasm. Please review and advise. Elvira Judd MA [facility]04-01-2025 Miscellaneous Notes* Telephone Encounter - Elvira Judd MA - 12/04/2024 7:52 AM EDT Pharmacy requesting refills as follows: Last Office Visit 10/04/24 NOV none. Last Refill 11/19/24. Requested Prescriptions Pending Prescriptions Disp Refills cyclobenzaprine (FLEXERIL) 10 mg tablet 90 tablet 0 Sig: Take 1 tablet by mouth three times a day as needed for muscle spasm. Please review and advise. Elvira Judd MA [facility]25 NoteHNO ID: [id number] Author: ARMAAN SORIA PA-C Service: ? Author Type: Physician Celery Stripper Type: Progress Notes Filed: 11/27/2024 14:34 Note Text: This note was created using BooRah. Subjective Pa Campa is a 34 year old male. Patient is a 34-year-old male who complains of worsening sore throat that he has been experiencing for the past 1 day. Patient states that he has noted redness as well as white spots to the back of his throat and tonsils. Patient reports no fever, chills or myalgia. Patient denies congestion, sinus pressure, ear pain, cough or other illness symptoms. Patient states that his is currently asymptomatic and in good health. Sore Throat Review of Systems HENT: Positive for sore throat. All other systems reviewed and are negative. Objective BP 120/70 Pulse 106 Temp 36.6 ?C (97.9 ?F) Resp 16 Wt 97.5 kg (214 lb 15.2 oz) SpO2 97% BMI 34.69 kg/m? Physical Exam Vitals and nursing note reviewed. Constitutional: Appearance: Normal appearance. He is normal weight. HENT: Head: Normocephalic and atraumatic. Right Ear: External ear normal. Left Ear: External ear normal. Nose: Nose normal. Mouth/Throat: Mouth: Mucous membranes are moist. Pharynx: Oropharyngeal exudate and posterior oropharyngeal erythema present. Eyes: Extraocular Movements: Extraocular movements intact. Conjunctiva/sclera: Conjunctivae normal. Pupils: Pupils are equal, round, and reactive to light. Cardiovascular: Rate and Rhythm: Normal rate and regular rhythm. Pulses: Normal pulses. Heart sounds: Normal heart sounds. Pulmonary: Effort: Pulmonary effort is normal. Breath sounds: Normal breath sounds. Musculoskeletal: Cervical back: Normal range of motion and neck supple. Skin: General: Skin is warm and dry. Capillary Refill: Capillary refill takes less than 2 seconds. Neurological: General: No focal deficit present. Mental Status: He is alert and oriented to person, place, and time. Psychiatric: Mood and Affect: Mood normal. Behavior: Behavior normal. Thought Content: Thought content normal. Judgment: Judgment normal. Assessment and Plan Physical exam findings as noted above. Rapid strep test is negative. Given the patient's clinical presentation and physical exam findings, he was provided with prescriptions for Augmentin 875-125 mg and prednisone 20 mg. Supportive care instructions were discussed and the patient verbalizes excellent understanding of same. CLINICAL IMPRESSION: Acute Streptococcal Tonsillitis ASSESSMENT/PLAN: 1. Sore throat - ICD9: 462, ICD10: J02.9 (primary diagnosis) - STREP A MOLECULAR (POC) 2. Acute non-recurrent streptococcal tonsillitis - ICD9: 034.0, ICD10: J03.00 - AMOXICILLIN 875 MG-POTASSIUM CLAVULANATE 125 MG TABLET - PREDNISONE 20 MG TABLET MDM Amount and/or Complexity of Data Reviewed Clinical lab tests: ordered and reviewed Risk of Complications, Morbidity, and/or Mortality Presenting problems: low Diagnostic procedures: low Management options: low TYLOR Serrano[facility]03-25-2025 History of Present illness Narrative* Armaan Soria PA-C - 11/27/2024 1:53 PM EDT This note was created using Better Walkriter. Subjective Pa Campa is a 34 year old male. Patient is a 34-year-old male who complains of worsening sore throat that he has been experiencing for the past 1 day. Patient states that he has noted redness as well as white spots to the back of his throat and tonsils. Patient reports no fever, chills or myalgia. Patient denies congestion, sinuspressure, ear pain, cough or other illness symptoms. Patient states that his is currently asymp tomatic and in good health. Sore Throat Review of Systems HENT: Positive for sore throat. All other systems reviewed and are negative. Objective BP 120/70 Pulse 106 Temp 36.6 C (97.9 F) Resp 16 Wt 97.5 kg (214 lb 15.2 oz) SpO2 97% BMI 34.69 kg/m Physical Exam Vitals and nursing note reviewed. Constitutional: Appearance: Normal appearance. He is normal weight. HENT: Head: Normocephalic and atraumatic. Right Ear: External ear normal. Left Ear: External ear normal. Nose: Nose normal. Mouth/Throat: Mouth: Mucous membranes are moist. Pharynx: Oropharyngeal exudate and posterior oropharyngeal erythema present. Eyes: Extraocular Movements: Extraocular movements intact. Conjunctiva/sclera: Conjunctivae normal. Pupils: Pupils are equal, round, and reactive to light. Cardiovascular: Rate and Rhythm: Normal rate and regular rhythm. Pulses: Normal pulses. Heart sounds: Normal heart sounds. Pulmonary: Effort: Pulmonary effort is normal. Breath sounds: Normal breath sounds. Musculoskeletal: Cervical back: Normal range of motion and neck supple. Skin: General: Skin is warm and dry. Capillary Refill: Capillary refill takes less than 2 seconds. Neurological: General: No focal deficit present. Mental Status: He is alert and oriented to person, place, and time. Psychiatric: Mood and Affect: Mood normal. Behavior: Behavior normal. Thought Content: Thought content normal. Judgment: Judgment normal. Assessment and Plan Physical exam findings as noted above. Rapid strep test is negative. Given the patient's clinical presentation and physical exam findings, he was provided with prescriptions for Augmentin 875-125 mg and prednisone 20 mg. Supportive care instructions were discussed and the patient verbalizes excellent understanding of same. CLINICAL IMPRESSION: Acute Streptococcal Tonsillitis ASSESSMENT/PLAN: 1. Sore throat - ICD9: 462, ICD10: J02.9 (primary diagnosis) - STREP A MOLECULAR (POC) 2. Acute non-recurrent streptococcal tonsillitis - ICD9: 034.0, ICD10: J03.00 - AMOXICILLIN 875 MG-POTASSIUM CLAVULANATE 125 MG TABLET - PREDNISONE 20 MG TABLET MDM Amount and/or Complexity of Data Reviewed Clinical lab tests: ordered and reviewed Risk of Complications, Morbidity, and/or Mortality Presenting problems: low Diagnostic procedures: low Management options: mainor Soria PA-C [facility] Telephone encounter Note * Telephone Encounter - Shelly Abreu MA - 11/05/2024 9:00 AM EST pharmacy electronically requesting refills as follows: Last seen 10/04/24 . Last refill 05/31/24 . Requested Prescriptions Pending Prescriptions Disp Refills escitalopram oxalate (LEXAPRO) 20 mg tablet [Pharmacy Med Name: Escitalopram Oxalate Oral Tablet 20MG] 30 tablet 0 Sig: TAKE 1 TABLET BY MOUTH EVERY DAY in the afternoon Please review and advise. Shelly Abreu MA [facility]03-03-2025 Miscellaneous Notes* Telephone Encounter - Shelly Abreu MA - 11/05/2024 9:00 AM EST pharmacy electronically requesting refills as follows: Last seen 10/04/24 . Last refill 05/31/24 . Requested Prescriptions Pending Prescriptions Disp Refills escitalopram oxalate (LEXAPRO) 20 mg tablet [Pharmacy Med Name: Escitalopram Oxalate Oral Tablet 20MG] 30 tablet 0 Sig: TAKE 1 TABLET BY MOUTH EVERY DAY in the afternoon Please review and advise. Shelly Abreu MA documented [facility] encounterGreen [facility]25 Telephone encounter Note * Telephone Encounter - Shelly Abreu MA - 10/16/2024 12:49 PM EST [facility] Rehabilitation Services Initial Evaluation placed in Dr. Yessi mooney folder to be signed. Shelly Abreu MA [facility]02-11-2025 Miscellaneous Notes* Telephone Encounter - Shelly Abreu MA - 10/16/2024 12:49 PM EST [facility] Rehabilitation Services Initial Evaluation placed in Dr. Yessi mooney folder to be signed. Shelly Abreu MA documented in [facility] encounterGreen [facility] Evaluation note* Diagnosis Onset Date Resolution Status Admit Date Lumbar stenosis with neurogenic claudication acute October 09, 2024 8:25am Degenerative disc disease, lumbar noneactive October 09 8:25am [facility] Work Phone: 1(818) 938-200501-30-2025 History of Present illness Narrative* Pily Cruz RT(Ben) - 10/04/2024 4:30 PM EST Radiology Service Progress Note PATIENT NAME: Pa Camap DATE OF SERVICE: October 04, 2024 TIME: 4:41 PM PATIENT IDENTITY VERIFICATION COMPLETED USING TWO (2) IDENTIFIERS: Name and Date of confirmedby patient verbally. FALL SCREENING: Has the patient had 2 falls in the last year or 1 fall with injury or currently using an Ambulatory Assistive Device (Walker, Cane, Wheelchair, Crutches, etc.)? No PATIENT GENDER DATA: Assigned male at PATIENT RELEVANT IMPLANT DATA REVIEWED: Not Applicable PATIENT PRESENTS WITH AN IMPLANTABLE OR ATTACHED VIRTUALIZATION ENGINEER: No RADIOLOGY DEPARTMENT: General X-ray: Exam(s) Completed: Spine X-Ray(s): Lumbar AP / LAT / L5-S1 / OBL Lower Extremity X-Ray(s): Knee, AP Only Right, right AP/LAT PERIPHERAL IV DATA: Not applicable SIGNED BY: RT Robina(R) October 04, 2024 4:41 PM documented in this encounterGreen [facility]01-30-2025 NoteHNO ID: [id number] Author: PILY CRUZ RT(Ben) Service: ? Author Type: Technologist Type: Progress Notes Filed: 10/04/2024 16:42 Note Text: Radiology Service Progress Note PATIENT NAME: Pa Campa DATE OF SERVICE: October 04, 2024 TIME: 4:41 PM PATIENT IDENTITY VERIFICATION COMPLETED USING TWO (2) IDENTIFIERS: Name and Date of confirmed by patient verbally. FALL SCREENING: Has the patient had 2 falls in the last year or 1 fall with injury or currently using an Ambulatory Assistive Device (Walker, Cane, Wheelchair, Crutches, etc.)? No PATIENT GENDER DATA: Assigned male at PATIENT RELEVANT IMPLANT DATA REVIEWED: Not Applicable PATIENT PRESENTS WITH AN IMPLANTABLE OR ATTACHED VIRTUALIZATION ENGINEER: No RADIOLOGY DEPARTMENT: General X-ray: Exam(s) Completed: Spine X-Ray(s): Lumbar AP / LAT / L5-S1 / OBL Lower Extremity X-Ray(s): Knee, AP Only Right, right AP/LAT PERIPHERAL IV DATA: Not applicable SIGNED BY: RT Robina(R) October 04, 2024 4:41 [facility]01-30-2025 NoteHNO ID: [id number] Author: PAGE BLANDON, DO Service: ? Author Type: Physician Type: Progress Notes Filed: 10/19/2024 21:09 Note Text: Subjective HPI Pt is here for f/u after being seen in the urgent care for right leg pain US was negative for DVT He continues to have pain in the right leg He would like to have xrays, and would like a note to return to work He has had pain in the right hip for about one year, but this pain has gotten much worse recently to the point that he is having trouble walking He put on his old boots today, thinking that his new boots were the cause of the pain, but the pain is the same Pain right now is 5/10 , when he is working is 10/10 Rubbing arthritis cream on it makes the pain better on his right knee He got Rx for steroids and flexeril from urgent care yesterday, and that helps a little Walking makes the pain worse, 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 21 tablet 0 predniSONE (DELTASONE) 10 mg tablet Take 4 tabs daily for 3 days, then 2 tabs daily for 3 days, then 1 tab daily for 3 days with food. 21 tablet 0 escitalopram oxalate (LEXAPRO) 20 mg tablet Take 1 tablet by mouth every afternoon. 30 tablet 4 multivit-min/folic/vit K/lycop (ONE-A-DAY MEN'S MULTIVITAMIN ORAL) Take 1 tablet by mouth once daily. No current facility-administered medications for this visit. ACTIVE PROBLEM LIST Obesity, Class I, Bmi 30-34.9 Redd (Generalized Anxiety Disorder) Social History Tobacco Use Smoking status: Former Types: Cigarettes Smokeless tobacco: Former Types: Chew Vaping Use Vaping status: Former Substance Use Topics Alcohol use: Not Currently Drug use: Never Family History Problem Relation Age of Onset Heart Attack Mother Hypertension Father Reviewed past medical history, family history and surgeries. All medications and supplements were reviewed with the patient. Review of Systems Constitutional: Negative for chills, diaphoresis, fever, malaise/fatigue and weight loss. HENT: Negative for ear pain and hearing loss. Eyes: Negative for blurred vision and double vision. Respiratory: Negative for cough and shortness of breath. Cardiovascular: Negative for chest pain, palpitations and leg swelling. Gastrointestinal: Negative for constipation, diarrhea and heartburn. Genitourinary: Negative for dysuria and frequency. Musculoskeletal: Positive for joint pain. Negative for back pain, falls and myalgias. Pain radiating to right lower extremity Skin: Negative for itching and rash. Neurological: Negative for dizziness, weakness and headaches. Endo/Heme/Allergies: Does not bruise/bleed easily. Psychiatric/Behavioral: Negative for depression and substance abuse. The patient does not have insomnia. Objective BP 124/70 Pulse 107 Temp 36.7 ?C (98.1 ?F) Resp 16 Ht 167.6 cm (5' 6) Wt 95.3 kg (210 lb) SpO2 98% BMI 33.89 kg/m? Physical Exam Constitutional: Appearance: Normal appearance. He is obese. HENT: Head: Normocephalic and atraumatic. Nose: Nose normal. Mouth/Throat: Mouth: Mucous membranes are moist. Dentition: Normal dentition. Eyes: General: Lids are normal. Extraocular Movements: Extraocular movements intact. Conjunctiva/sclera: Conjunctivae normal. Pupils: Pupils are equal, round, and reactive to light. Neck: Thyroid: No thyroid mass or thyromegaly. Vascular: No carotid bruit. Trachea: Phonation normal. Cardiovascular: Rate and Rhythm: Normal rate and regular rhythm. Heart sounds: Normal heart sounds. No murmur heard. No friction rub. No gallop. Pulmonary: Effort: Pulmonary effort is normal. Breath sounds: Normal breath sounds. No wheezing or rales. Abdominal: General: Bowel sounds are normal. There is no distension. Palpations: Abdomen is soft. There is no mass. Tenderness: There is no abdominal tenderness. Musculoskeletal: General: Swelling and tenderness (right knee medial joint line) present. Normal range of motion. Cervical back: Normal range of motion and neck supple. No edema. Lymphadenopathy: Cervical: No cervical adenopathy. Skin: General: Skin is warm and dry. Findings: No erythema or rash. Nails: There is no clubbing. Neurological: Mental Status: He is alert and oriented to person, place, and time. Cranial Nerves: No cranial nerve deficit. Motor: Motor function is intact. Coordination: Coordination normal. Gait: Gait is intact. (more content not included)...[facility]01-30-2025 History of Present illness Narrative* Page Blandon DO - 10/04/2024 3:39 PM EST Subjective HPI Pt is here for f/u after being seen in the urgent care for right leg pain US was negative for DVT He continues to have pain in the right leg He would like to have xrays, and would like a note to return to work He has had pain in the right hip for about one year, but this pain has gotten much worse recently to the point that he is having trouble walking He put on his old boots today, thinking that his new boots were the cause of the pain, but the painis the same Pain right now is 5/10 , when he is working is 10/10 Rubbing arthritis cream on it makes the pain better on his right knee He got Rx for steroids and flexeril from urgent care yesterday, and that helps a little Walking makes the pain worse, 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 21 tablet 0 predniSONE (DELTASONE) 10 mg tablet Take 4 tabs daily for 3 days, then 2 tabs daily for 3 days, then 1 tab daily for 3 days with food. 21 tablet 0 escitalopram oxalate (LEXAPRO) 20 mg tablet Take 1 tablet by mouth every afternoon. 30 tablet 4 multivit-min/folic/vit K/lycop (ONE-A-DAY MEN'S MULTIVITAMIN ORAL) Take 1 tablet by mouth once daily. No current facility-administered medications for this visit. ACTIVE PROBLEM LIST Obesity, Class I, Bmi 30-34.9 Redd (Generalized Anxiety Disorder) Social History Tobacco Use Smoking status: Former Types: Cigarettes Smokeless tobacco: Former Types: Chew Vaping Use Vaping status: Former Substance Use Topics Alcohol use: Not Currently Drug use: Never Family History Problem Relation Age of Onset Heart Attack Mother Hypertension Father Reviewed past medical history, family history and surgeries. All medications and supplements were reviewed with the patient. Review of Systems Constitutional: Negative for chills, diaphoresis, fever, malaise/fatigue and weight loss. HENT: Negative for ear pain and hearing loss. Eyes: Negative for blurred vision and double vision. Respiratory: Negative for cough and shortness of breath. Cardiovascular: Negative for chest pain, palpitations and leg swelling. Gastrointestinal: Negative for constipation, diarrhea and heartburn. Genitourinary: Negative for dysuria and frequency. Musculoskeletal: Positive for joint pain. Negative for back pain, falls and myalgias. Pain radiating to right lower extremity Skin: Negative for itching and rash. Neurological: Negative for dizziness, weakness and headaches. Endo/Heme/Allergies: Does not bruise/bleed easily. Psychiatric/Behavioral: Negative for depression and substance abuse. The patient does not have insomnia. Objective BP 124/70 Pulse 107 Temp 36.7 C (98.1 F) Resp 16 Ht 167.6 cm (5' 6) Wt 95.3 kg (210 lb) SpO2 98% BMI 33.89 kg/m Physical Exam Constitutional: Appearance: Normal appearance. He is obese. HENT: Head: Normocephalic and atraumatic. Nose: Nose normal. Mouth/Throat: Mouth: Mucous membranes are moist. Dentition: Normal dentition. Eyes: General: Lids are normal. Extraocular Movements: Extraocular movements intact. Conjunctiva/sclera: Conjunctivae normal. Pupils: Pupils are equal, round, and reactive to light. Neck: Thyroid: No thyroid mass or thyromegaly. Vascular: No carotid bruit. Trachea: Phonation normal. Cardiovascular: Rate and Rhythm: Normal rate and regular rhythm. Heart sounds: Normal heart sounds. No murmur heard. No friction rub. No gallop. Pulmonary: Effort: Pulmonary effort is normal. Breath sounds: Normal breath sounds. No wheezing or rales. Abdominal: General: Bowel sounds are normal. There is no distension. Palpations: Abdomen is soft. There is no mass. Tenderness: There is no abdominal tenderness. Musculoskeletal: General: Swelling and tenderness (right knee medial joint line) present. Normal range of motion. Cervical back: Normal range of motion and neck supple. No edema. Lymphadenopathy: Cervical: No cervical adenopathy. Skin: General: Skin is warm and dry. Findings: No erythema or rash. Nails: There is no clubbing. Neurological: Mental Status: He is alert and oriented to person, place, and time. Cranial Nerves: No cranial nerve deficit. Motor: Motor function is intact. Coordination: Coordination normal. Gait: Gait is intact. Psychiatric: Attention and Perception: Attention normal. Mood and Affect: Mood and affect normal. Speech: Speech normal. Behavior: Behavior normal. Behavior is cooperative. Thought Content: Thought content normal. Cognition and Memory: Cognition and memory normal. Judgment: Judgment normal. ASSESSMENT/PLAN: 1. Chronic pain of right knee - ICD9: 719.46, 338.29, ICD10: M25.561, G89.29 (primary diagnosis) - XR KNEE LIMITED 2V AP/LAT RIGHT - XR KNEE SURVEY ARTHRITIS 1V AP BILATERAL - CONSULT TO ORTHOPAEDICS 2. Sciatica, right side - ICD9: 724.3, ICD10: M54.31 - XR LUMBAR PARS DEFECT 4V AP/LAT/BOTH OBL 3. Screening cholesterol level - ICD9: V77.91, ICD10: Z13.220 - LIPID PANEL BASIC 4. NAHUM (obstructive sleep apnea) - ICD9: 327.23, ICD10: G47.33 - PAP TITRATION PSG (CPAP, BIPAP, ASV) Page Blandon DO documented in [facility] encounter[facility]25 NoteHNO ID: [id number] Author: KAROLIAN JUARES APRN.MERVAT Service: ? Author Type: Nurse Practitioner Type: Progress Notes Filed: 10/02/2024 12:50 Note Text: Reached out and spoke with patient. Informed of negative US RX Flexeril and Prednisone taper F/U with PCP For continued symptoms.[facility]01-28-2025 History of Present illness Narrative* Karolina Juares APRN.CNP - 10/02/2024 12:49 PM EST Reached out and spoke with patient. Informed of negative US RX Flexeril and Prednisone taper F/U with PCP For continued symptoms. * Karolina Juares APRN.CNP - 10/02/2024 8:41 AM EST This note was created using Better Walk[employer]. Subjective Pa Campa is a 34 year old male. 34 year old male with PMH anxiety presents for leg complaints. 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 The history is provided by the patient. No pediatric speech language pathologist was used. Right knee injury: No Date: 09/18/2024 Right knee condition: Acute Right knee severity: Mild Right knee progression: Stable Patient reports that right knee feels stable. Patient reports feeling right knee not locking, not popping and not catching. Right knee aggravating factors: Regular daily ambulation. Right knee alleviating factors: Rest. History reviewed. No pertinent past medical history. PAST SURGICAL HISTORY Procedure Laterality Date UNLISTED PROCEDURE HUMERUS/ELBOW Right 1996 reset bone in lower right arm ALLERGIES Patient has no known allergies. MEDICATIONS escitalopram oxalate (LEXAPRO) 20 mg tablet Take 1 tablet by mouth every afternoon. multivit-min/folic/vit K/lycop (ONE-A-DAY MEN'S MULTIVITAMIN ORAL) Take 1 tablet by mouth once daily. cyclobenzaprine (FLEXERIL) 10 mg tablet Take 1 tablet by mouth three times a day as needed for muscle spasm. predniSONE (DELTASONE) 10 mg tablet Take 4 tabs daily for 3 days, then 2 tabs daily for 3 days, then 1 tab daily for 3 days with food. FAMILY HISTORY Problem Relation Age of Onset Heart Attack Mother Hypertension Father Social History Tobacco Use Smoking status: Former Types: Cigarettes Smokeless tobacco: Former Types: Chew Vaping Use Vaping status: Former Substance Use Topics Alcohol use: Not Currently Drug use: Never Review of Systems Constitutional: Negative for activity change, appetite change, chills and diaphoresis. Eyes: Negative for pain, discharge and itching. Respiratory: Negative for apnea, choking and chest tightness. Cardiovascular: Negative for chest pain, palpitations and leg swelling. Gastrointestinal: Negative for abdominal pain, diarrhea, nausea and vomiting. Musculoskeletal: Negative for arthralgias and back pain. Right knee and right leg pain Skin: Negative for color change, pallor, rash and wound. Allergic/Immunologic: Negative for environmental allergies, food allergies and immunocompromised state. Neurological: Negative for dizziness, facial asymmetry and headaches. Hematological: Negative for adenopathy. Does not bruise/bleed easily. Psychiatric/Behavioral: Negative for agitation and behavioral problems. Objective BP 122/80 Pulse 84 Temp 36.7 C (98.1 F) (Tympanic) Resp 16 Wt 92.6 kg (204 lb 2.3 oz) SpO2 98% BMI 32.95 kg/m Physical Exam Vitals and nursing note reviewed. Constitutional: General: He is not in acute distress. Appearance: Normal appearance. He is not ill-appearing, toxic-appearing or diaphoretic. HENT: Head: Normocephalic and atraumatic. Right Ear: External ear normal. Left Ear: External ear normal. Nose: Nose normal. No congestion or rhinorrhea. Mouth/Throat: Mouth: Mucous membranes are moist. Pharynx: Oropharynx is clear. No oropharyngeal exudate or posterior oropharyngeal erythema. Eyes: General: Right eye: No discharge. Left eye: No discharge. Extraocular Movements: Extraocular movements intact. Conjunctiva/sclera: Conjunctivae normal. Pupils: Pupils are equal, round, and reactive to light. Cardiovascular: Rate and Rhythm: Normal rate and regular rhythm. Pulses: Normal pulses. Heart sounds: Normal heart sounds. No murmur heard. No friction rub. No gallop. Pulmonary: Effort: Pulmonary effort is normal. No respiratory distress. Breath sounds: Normal breath sounds. No stridor. No wheezing, rhonchi or rales. Chest: Chest wall: No tenderness. Abdominal: General: Abdomen is flat. There is no distension. Palpations: Abdomen is soft. There is no mass. Tenderness: There is no abdominal tenderness. There is no guarding or rebound. Hernia: No hernia is present. Musculoskeletal: General: No swelling, tenderness, deformity or signs of injury. Normal range of motion. Cervical back: Normal range of motion and neck supple. No rigidity or tenderness. Right lower leg: No edema. Left lower leg: No edema. Comments: No obvious swelling No ecchymosis No reproducible pain with palpation Negative vagus Negative valus +neuro +sensation Full active and passive ROM Ambulatory No obvious deformity Lymphadenopathy: Cervical: No cervical adenopathy. Skin: General: Skin is warm and dry. Capillary Refill: Capillary refill takes less than 2 seconds. Coloration: Skin is not jaundiced or pale. Findings: No bruising, lesion or rash. Neurological: General: No focal deficit present. Mental Status: He is alert and oriented to person, place, and time. Cranial Nerves: No cranial nerve deficit. Sensory: No sensory deficit. Motor: No weakness. Coordination: Coordination normal. Gait: Gait normal. Deep Tendon Reflexes: Reflexes normal. Psychiatric: Mood and Affect: Mood normal. Behavior: Behavior normal. Thought Content: Thought content normal. Assessment and Plan ASSESSMENT/PLAN: 1. Right leg pain - ICD9: 729.5, ICD10: M79.604 X 2 weeks Pain encompasses right knee down through calf region No trauma or injury No red flags - US LEG VEIN DVT UNL VAS LAB-ordered and will obtain at [place] today - US DVT LOWER LEFT - US LEG VEIN DVT UN[facility] VAS LAB - US DVT LOWER RIGHT Karolina Juares APRN.SHIPPING AND RECEIVING CLERK documented in this encounterGreen [facility]01-28-[facility]25 History of Present illness Narrative* Teresa Elliott RT(R) - 10/02/2024 10:00 AM EST Radiology Service Progress Note PATIENT NAME: Pa Campa DATE OF SERVICE: October 02, 2024 TIME: 10:08 AM PATIENT IDENTITY VERIFICATION COMPLETED USING TWO (2) IDENTIFIERS: Name and Date of confirmedby patient verbally. FALL SCREENING: Has the patient had 2 falls in the last year or 1 fall with injury or currently using an Ambulatory Assistive Device (Walker, Cane, Wheelchair, Crutches, etc.)? No PATIENT GENDER DATA: Assigned male at PATIENT RELEVANT IMPLANT DATA REVIEWED: Yes PATIENT PRESENTS WITH AN IMPLANTABLE OR ATTACHED VIRTUALIZATION ENGINEER: No RADIOLOGY DEPARTMENT: Ultrasound PERIPHERAL IV DATA: Not applicable SIGNED BY: Teresa Elliott RDMS, RVT October 02, 2024 10:08 AM documented in this encounterGreen Cross Hospital01-28-2025 NoteHNO ID: [id number] Author: TERESA ELLIOTT RT(Ben) Service: ? Author Type: Technologist Type: Progress Notes Filed: 10/02/2024 10:08 Note Text: Radiology Service Progress Note PATIENT NAME: Pa Campa DATE OF SERVICE: October 02, 2024 TIME: 10:08 AM PATIENT IDENTITY VERIFICATION COMPLETED USING TWO (2) IDENTIFIERS: Name and Date of confirmed by patient verbally. FALL SCREENING: Has the patient had 2 falls in the last year or 1 fall with injury or currently using an Ambulatory Assistive Device (Walker, Cane, Wheelchair, Crutches, etc.)? No PATIENT GENDER DATA: Assigned male at PATIENT RELEVANT IMPLANT DATA REVIEWED: Yes PATIENT PRESENTS WITH AN IMPLANTABLE OR ATTACHED VIRTUALIZATION ENGINEER: No RADIOLOGY DEPARTMENT: Ultrasound PERIPHERAL IV DATA: Not applicable SIGNED BY: Teresa Elliott RDMS, RVT October 02, 2024 10:08 [facility]01-28-2025 Instructions* Patient Instructions* Karolina Juares APRN.CNP - 10/02/2024 9:01 AM EST Please obtain your ultrasound at [place] today. I will call with results. documented in this encounterGreen Cross Hospital01-28-2025 NoteHNO ID: [id number] Author: KAROLINA JUARES APRN.CNP Service: ? Author Type: Nurse Practitioner Type: Progress Notes Filed: 10/02/2024 12:50 Note Text: This note was created using Better Walk[employer]. Subjective Pa Campa is a 34 year old male. 34 year old male with PMH anxiety presents for leg complaints. 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 The history is provided by the patient. No pediatric speech language pathologist was used. Right knee injury: No Date: 09/18/2024 Right knee condition: Acute Right knee severity: Mild Right knee progression: Stable Patient reports that right knee feels stable. Patient reports feeling right knee not locking, not popping and not catching. Right knee aggravating factors: Regular daily ambulation. Right knee alleviating factors: Rest. History reviewed. No pertinent past medical history. PAST SURGICAL HISTORY Procedure Laterality Date UNLISTED PROCEDURE HUMERUS/ELBOW Right 1996 reset bone in lower right arm ALLERGIES Patient has no known allergies. MEDICATIONS escitalopram oxalate (LEXAPRO) 20 mg tablet Take 1 tablet by mouth every afternoon. multivit-min/folic/vit K/lycop (ONE-A-DAY MEN'S MULTIVITAMIN ORAL) Take 1 tablet by mouth once daily. cyclobenzaprine (FLEXERIL) 10 mg tablet Take 1 tablet by mouth three times a day as needed for muscle spasm. predniSONE (DELTASONE) 10 mg tablet Take 4 tabs daily for 3 days, then 2 tabs daily for 3 days, then 1 tab daily for 3 days with food. FAMILY HISTORY Problem Relation Age of Onset Heart Attack Mother Hypertension Father Social History Tobacco Use Smoking status: Former Types: Cigarettes Smokeless tobacco: Former Types: Chew Vaping Use Vaping status: Former Substance Use Topics Alcohol use: Not Currently Drug use: Never Review of Systems Constitutional: Negative for activity change, appetite change, chills and diaphoresis. Eyes: Negative for pain, discharge and itching. Respiratory: Negative for apnea, choking and chest tightness. Cardiovascular: Negative for chest pain, palpitations and leg swelling. Gastrointestinal: Negative for abdominal pain, diarrhea, nausea and vomiting. Musculoskeletal: Negative for arthralgias and back pain. Right knee and right leg pain Skin: Negative for color change, pallor, rash and wound. Allergic/Immunologic: Negative for environmental allergies, food allergies and immunocompromised state. Neurological: Negative for dizziness, facial asymmetry and headaches. Hematological: Negative for adenopathy. Does not bruise/bleed easily. Psychiatric/Behavioral: Negative for agitation and behavioral problems. Objective BP 122/80 Pulse 84 Temp 36.7 ?C (98.1 ?F) (Tympanic) Resp 16 Wt 92.6 kg (204 lb 2.3 oz) SpO2 98% BMI 32.95 kg/m? Physical Exam Vitals and nursing note reviewed. Constitutional: General: He is not in acute distress. Appearance: Normal appearance. He is not ill-appearing, toxic-appearing or diaphoretic. HENT: Head: Normocephalic and atraumatic. Right Ear: External ear normal. Left Ear: External ear normal. Nose: Nose normal. No congestion or rhinorrhea. Mouth/Throat: Mouth: Mucous membranes are moist. Pharynx: Oropharynx is clear. No oropharyngeal exudate or posterior oropharyngeal erythema. Eyes: General: Right eye: No discharge. Left eye: No discharge. Extraocular Movements: Extraocular movements intact. Conjunctiva/sclera: Conjunctivae normal. Pupils: Pupils are equal, round, and reactive to light. Cardiovascular: Rate and Rhythm: Normal rate and regular rhythm. Pulses: Normal pulses. Heart sounds: Normal heart sounds. No murmur heard. No friction rub. No gallop. Pulmonary: Effort: Pulmonary effort is normal. No respiratory distress. Breath sounds: Normal breath sounds. No stridor. No wheezing, rhonchi or rales. Chest: Chest wall: No tenderness. Abdominal: General: Abdomen is flat. There is no distension. Palpations: Abdomen is soft. There is no mass. Tenderness: There is no abdominal tenderness. There is no guarding or rebound. Hernia: No hernia is present. Musculoskeletal: General: No swelling, tenderness, deformity or signs of injury. Normal range of motion. Cervical back: Normal range of motion and neck supple. No rigidity or tenderness. Right lower leg: No edema. Left lower leg: No edema. Comments: No obvious swelling No ecchymosis No reproducible pain with palpation Negative vagus Negative valus +neuro +sensation Full active and passive (more content not included)...[facility] 07-05-2024 Telephone encounter Note* Telephone Encounter - Rhonda Padilla APRN.CNP - 07/05/2024 2:22 PM EDT Opened in error. [facility]10-[facility] Miscellaneous Notes* Telephone Encounter - Rhonda Padilla APRN.CNP - 07/05/2024 2:22 PM EDT Opened in error. documented in this encounterGreen Cross Hospital10-30-2024 NoteHNO ID: [id number] Author: SHELLY ABREU MA Service: ? Author Type: Stand Up Forklift Operator Type: Progress Notes Filed: 07/04/2024 09:56 Note Text: ED Follow Up: Patient discharged from [facility] ED on 06/29/24. 1. How are you feeling since your ED visit? Left message inquiring how patient is doing since recent ER visit and recommended calling back if he needs anything. Have your symptoms improved or resolved? Left message 2. Were you prescribed any medications while in the ED or advised to stop any medication? Left message - If yes, were you able to fill your prescriptions? Left message -if stopped medication, what was the medication? Left message 3. Were you advised to schedule a follow up appointment with your provider? Left message - If no, Do you feel like you need an appointment scheduled? Left message - If yes, Do you need this scheduled now or has this already been scheduled? Left message 4. Were you able to contact the office or supervisor stone provider prior to your ED visit? left message 5. Is there anything else I can do for you today? Left message [facility] of Present illness Narrative* Shelly Abreu MA - 07/04/2024 9:53 AM EDT ED Follow Up: Patient discharged from [facility] ED on 06/29/24. 1. How are you feeling since your ED visit? Left message inquiring how patient is doing since recent ER visit and recommended calling back if he needs anything. Have your symptoms improved or resolved? Left message 2. Were you prescribed any medications while in the ED or advised to stop any medication? Left message - If yes, were you able to fill your prescriptions? Left message -if stopped medication, what was the medication? Left message 3. Were you advised to schedule a follow up appointment with your provider? Left message - If no, Do you feel like you need an appointment scheduled? Left message - If yes, Do you need this scheduled now or has this already been scheduled? Left message 4. Were you able to contact the office or supervisor stone provider prior to your ED visit? left message 5. Is there anything else I can do for you today? Left message Shelly Abreu MA [facility] NotePatient Outreach (AGFAMPLE) PA CAMPA ([id number]) 1990 M Date Time Provider Department 07/04/24 SHELLY ABREU During your visit today, we recorded the following information about you: Shelly Abreu MA 07/04/2024 9:56 AM Signed ED Follow Up: Patient discharged from [facility] ED on 06/29/24. 1. How are you feeling since your ED visit? Left message inquiring how patient is doing since recent ER visit and recommended calling back if he needs anything. Have your symptoms improved or resolved? Left message 2. Were you prescribed any medications while in the ED or advised to stop any medication? Left message - If yes, were you able to fill your prescriptions? Left message -if stopped medication, what was the medication? Left message 3. Were you advised to schedule a follow up appointment with your provider? Left message - If no, Do you feel like you need an appointment scheduled? Left message - If yes, Do you need this scheduled now or has this already been scheduled? Left message 4. Were you able to contact the office or supervisor stone provider prior to your ED visit? left message 5. Is there anything else I can do for you today? Left message Shelly Abreu MA Allergies As of Date: 07/04/2024 (No Known Allergies) Date Reviewed: 03/29/2024 Reviewed by: Rhonda Padilla APRN.SHIPPING AND RECEIVING CLERK - Fully Assessed Reason for Visit: ED Outreach [Other] Cmt: [facility] 06/29/24 Prescriptions as of 07/04/2024 - escitalopram oxalate (LEXAPRO) 20 mg tablet Take 1 tablet by mouth every afternoon. - multivit-min/folic/vit K/lycop (ONE-A-DAY MEN'S MULTIVITAMIN ORAL) Take 1 tablet by mouth once daily. Problem List As Of Date 07/04/2024 Noted Resolved Obesity, Class I, BMI 30-34.9 [E66.811] 09/14/2023 REDD (generalized anxiety disorder) [F41.1] 09/14/2023 Encounter Status:Closed by SHELLY ABREU on 07/04/24[facility] Evaluation + Plan noteExtracted from: Title:ED Note Author:Otis Giraldo DO Date:1 Musculoskeletal pain (M79.18 : Myalgia, other site) Orders: cyclobenzaprine, 10 mg = 1 tab(s), Oral, TID, PRN Muscle pain, X 5 day(s), # 15 tab(s), Refills(s) 0, Pharmacy: [id number], 170.1, cm, 06/29/24 22:03:00 EDT, Height/Length Dosing, 91.9, kg, 06/29/24 22:03:00 EDT, Weight Dosing naproxen, 500 mg = 1 tab(s), Oral, BID, PRN for pain, # 20 tab(s), Refills(s) 0, Pharmacy: [id number], 170.1, cm, 06/29/24 22:03:00 EDT, Height/Length Dosing, 91.9, kg, 06/29/24 22:03:00 EDT, Weight Dosing Basic Metabolic Panel CBC w/ Auto Diff CT Abdomen/Pelvis w/o Contrast ECG 12 Lead Adult eGFR Hepatic Function Panel Lipase Level Troponin 0 Hr. [facility] 10-26-2024 Hospital Discharge instructions Patient Education 06/30/2024 02:59:41 Musculoskeletal Pain Musculoskeletal Pain Musculoskeletal pain refers to aches and pains in your bones, joints, muscles, and the tissues thatsurround them. This pain can occur in any part of the body. It can last for a short time (acute) ora long time (chronic). A physical exam, lab tests, and imaging studies may be done to find the cause of your musculoskeletal pain. Follow these instructions at home: Lifestyle Try to control or lower your stress levels. Stress increases muscle tension and can worsen musculoskeletal pain. It is important to recognize when you are anxious or stressed and learn ways to manageit. This may include: ?Meditation or yoga. ?Cognitive or behavioral therapy. ?Acupuncture or massage therapy. You may continue all activities unless the activities cause more pain. When the pain gets better, slowly resume your normal activities. Gradually increase the intensity and duration of your activities or exercise. Managing pain, stiffness, and swelling Treatment may include medicines for pain and inflammation that are taken by mouth or applied to theskin. Take eebo-yst-adjenuf and prescription medicines only as told by your health care provider. When your pain is severe, bed rest may be helpful. Lie or sit in any position that is comfortable, but get out of bed and walk around at least every couple of hours. If directed, apply heat to the affected area as often as told by your health care provider. Use theheat source that your health care provider recommends, such as a moist heat pack or a heating pad. ?Place a towel between your skin and the heat source. ?Leave the heat on for 20 30 minutes. ?Remove the heat if your skin turns bright red. This is especially important if you are unable to feel pain, heat, or cold. You may have a greater risk of getting burned. If directed, put ice on the painful area. To do this: ?Put ice in a plastic bag. ?Place a towel between your skin and the bag. ?Leave the ice on for 20 minutes, 2 3 times a day. ?Remove the ice if your skin turns bright red. This is very important. If you cannot feel pain, heat, or cold, you have a greater risk of damage to the area. General instructions Your health care provider may recommend that you see a physical therapist. This person can help youcome up with a safe exercise program. If told by your health care provider, do physical therapy exercises to improve movement and strength in the affected area. Keep all follow-up visits. This is important. This includes any physical therapy visits. Contact a health care provider if: Your pain gets worse. Medicines do not help ease your pain. You cannot use the part of your body that hurts, such as your arm, leg, or neck. You have trouble sleeping. You have trouble doing your normal activities. Get help right away if: You have a new injury and your pain is worse or different. You feel numb or you have tingling in the painful area. Summary Musculoskeletal pain refers to aches and pains in your bones, joints, muscles, and the tissues thatsurround them. This pain can occur in any part of the body. Your health care provider may recommend that you see a physical therapist. This person can help youcome up with a safe exercise program. Do any exercises as told by your physical therapist. Lower your stress level. Stress can worsen musculoskeletal pain. Ways to lower stress may include meditation, yoga, cognitive or behavioral therapy, acupuncture, and massage therapy. This information is not intended to replace advice given to you by your health care provider. Make sure you discuss any questions you have with your health care provider. Document Revised: 12/25/2020 Document Reviewed: 12/03/2020 [employer] Patient Education 2023 [employer]. Follow Up Care 06/29/2024 21:56:37 With:PAGE BLANDON Address: [address] [place] [address] [phone] Business (1) When:07/03/2024 Comments:Call the office of your primary care doctor to arrange for follow-up within the above-stated timeframe. Follow-up with your primary care doctor about this ED visit. You should review your labs, imaging, and diagnoses from this ED visit with your primary care physician. There are occasionally non-emergent findings that require additional follow-up after your ED visit. If you were prescribed medications you should discuss possible side-effects and drug interactions with your pharmacist. Call 911 or go to the nearest Emergency Department if you develop any new or worsening symptoms.Seek immediate medical attention if you develop:worsening abdominal pain, new or worsening nausea, new or worsening vomiting, new or worsening diarrhea, chest pain, shortness of breath, pain with urination, problems urinating, fever, chills, weakness, or any new or worsening symptoms. [facility] 10-26-2024 NoteED Patient Education Note Orthopedics Musculoskeletal Pain Musculoskeletal pain refers to aches and pains in your bones, joints, muscles, and the tissues thatsurround them. This pain can occur in any part of the body. It can last for a short time (acute) ora long time (chronic). A physical exam, lab tests, and imaging studies may be done to find the cause of your musculoskeletal pain. Follow these instructions at home: Lifestyle ??? Try to control or lower your stress levels. Stress increases muscle tension and can worsen musculoskeletal pain. It is important to recognize when you are anxious or stressed and learn ways to manage it. This may include: ? Meditation or yoga. ? Cognitive or behavioral therapy. ? Acupuncture or massage therapy. ??? You may continue all activities unless the activities cause more pain. When the pain gets better, slowly resume your normal activities. Gradually increase the intensity and duration of your activities or exercise. Managing pain, stiffness, and swelling ??? Treatment may include medicines for pain and inflammation that are taken by mouth or applied tothe skin. Take alpt-aop-cgvrodx and prescription medicines only as told by your health care provider. ??? When your pain is severe, bed rest may be helpful. Lie or sit in any position that is comfortable, but get out of bed and walk around at least every couple of hours. ??? If directed, apply heat to the affected area as often as told by your health care provider. Usethe heat source that your health care provider recommends, such as a moist heat pack or a heating pad. ? Place a towel between your skin and the heat source. ? Leave the heat on for 20?30 minutes. ? Remove the heat if your skin turns bright red. This is especially important if you are unable to feel pain, heat, or cold. You may have a greater risk of getting burned. ??? If directed, put ice on the painful area. To do this: ? Put ice in a plastic bag. ? Place a towel between your skin and the bag. ? Leave the ice on for 20 minutes, 2?3 times a day. ? Remove the ice if your skin turns bright red. This is very important. If you cannot feel pain, heat, or cold, you have a greater risk of damage to the area. General instructions ??? Your health care provider may recommend that you see a physical therapist. This person can helpyou come up with a safe exercise program. ??? If told by your health care provider, do physical therapy exercises to improve movement and strength in the affected area. ??? Keep all follow-up visits. This is important. This includes any physical therapy visits. Contact a health care provider if: ??? Your pain gets worse. ??? Medicines do not help ease your pain. ??? You cannot use the part of your body that hurts, such as your arm, leg, or neck. ??? You have trouble sleeping. ??? You have trouble doing your normal activities. Get help right away if: ??? You have a new injury and your pain is worse or different. ??? You feel numb or you have tingling in the painful area. Summary ??? Musculoskeletal pain refers to aches and pains in your bones, joints, muscles, and the tissues that surround them. ??? This pain can occur in any part of the body. ??? Your health care provider may recommend that you see a physical therapist. This person can helpyou come up with a safe exercise program. Do any exercises as told by your physical therapist. ??? Lower your stress level. Stress can worsen musculoskeletal pain. Ways to lower stress may include meditation, yoga, cognitive or behavioral therapy, acupuncture, and massage therapy. This information is not intended to replace advice given to you by your health care provider. Make sure you discuss any questions you have with your health care provider. Document Revised: 12/25/2020 Document Reviewed: 12/03/2020 [employer] Patient Education ? 2023 [employer].[facility] 06-13-2024 NoteHNO ID: [id number] Author: YOLANDA ROCHA LPN Service: ? Author Type: LICENSED NURSE Type: Progress Notes Filed: 06/13/2024 11:11 Note Text: ED Follow Up: Patient discharged from [facility] ED on 06/11/2024. 1. How are you feeling since your ED visit? Left message for pt to call office. Have your symptoms improved or resolved? Left message for pt to call office. 2. Were you prescribed any medications while in the ED or advised to stop any medication? Left message for pt to call office. - If yes, were you able to fill your prescriptions? Left message for pt to call office. -if stopped medication, what was the medication? Left message for pt to call office. 3. Were you advised to schedule a follow up appointment with your provider? Left message for pt to call office. - If no, Do you feel like you need an appointment scheduled? Left message for pt to call office. - If yes, Do you need this scheduled now or has this already been scheduled? Left message for pt to call office. 4. Were you able to contact the office or supervisor stone provider prior to your ED visit? Left message for pt to call office. 5. Is there anything else I can do for you today? Left message for pt to call office.[facility]10-09-2024 History of Present illness Narrative* Yolanda Rocha LPN - 06/13/2024 11:09 AM EDT ED Follow Up: Patient discharged from [facility] ED on 06/11/2024. 1. How are you feeling since your ED visit? Left message for pt to call office. Have your symptoms improved or resolved? Left message for pt to call office. 2. Were you prescribed any medications while in the ED or advised to stop any medication? Left message for pt to call office. - If yes, were you able to fill your prescriptions? Left message for pt to call office. -if stopped medication, what was the medication? Left message for pt to call office. 3. Were you advised to schedule a follow up appointment with your provider? Left message for pt to call office. - If no, Do you feel like you need an appointment scheduled? Left message for pt to call office. - If yes, Do you need this scheduled now or has this already been scheduled? Left message for pt tocall office. 4. Were you able to contact the office or supervisor stone provider prior to your ED visit? Left message forpt to call office. 5. Is there anything else I can do for you today? Left message for pt to call office. [facility] NotePatient Outreach (ANA) PA CAMPA ([id number]) 1990 M Date Time Provider Department 06/13/24 YOLANDA ROCHA During your visit today, we recorded the following information about you: Yolanda Rocha LPN 06/13/2024 11:11 AM Signed ED Follow Up: Patient discharged from [facility] ED on 06/11/2024. 1. How are you feeling since your ED visit? Left message for pt to call office. Have your symptoms improved or resolved? Left message for pt to call office. 2. Were you prescribed any medications while in the ED or advised to stop any medication? Left message for pt to call office. - If yes, were you able to fill your prescriptions? Left message for pt to call office. -if stopped medication, what was the medication? Left message for pt to call office. 3. Were you advised to schedule a follow up appointment with your provider? Left message for pt to call office. - If no, Do you feel like you need an appointment scheduled? Left message for pt to call office. - If yes, Do you need this scheduled now or has this already been scheduled? Left message for pt to call office. 4. Were you able to contact the office or supervisor stone provider prior to your ED visit? Left message for pt to call office. 5. Is there anything else I can do for you today? Left message for pt to call office. Allergies As of Date: 06/13/2024 (No Known Allergies) Date Reviewed: 03/29/2024 Reviewed by: Rhonda Padilla APRN.SHIPPING AND RECEIVING CLERK - Fully Assessed Prescriptions as of 06/13/2024 - escitalopram oxalate (LEXAPRO) 20 mg tablet Take 1 tablet by mouth every afternoon. - multivit-min/folic/vit K/lycop (ONE-A-DAY MEN'S MULTIVITAMIN ORAL) Take 1 tablet by mouth once daily. Problem List As Of Date 06/13/2024 Noted Resolved Obesity, Class I, BMI 30-34.9 [E66.811] 09/14/2023 REDD (generalized anxiety disorder) [F41.1] 09/14/2023 Encounter Status:Closed by YOLANDA ROCHA on 06/13/24[facility] 05-31-[facility] Telephone encounter Note* Telephone Encounter - Mandi Mesa MA - 05/31/2024 11:00 AM EDT Patient requesting refills: Last office visit 03/29/2024. Last refill 04/25/2024 nov none Requested Prescriptions Pending Prescriptions Disp Refills escitalopram oxalate (LEXAPRO) 20 mg tablet 30 tablet 0 Sig: Take 1 tablet by mouth every afternoon. Please review and advise. Mandi Mesa MA [facility]09-26-[facility] Miscellaneous Notes* Telephone Encounter - Mandi Mesa MA - 05/31/2024 11:00 AM EDT Patient requesting refills: Last office visit 03/29/2024. Last refill 04/25/2024 nov none Requested Prescriptions Pending Prescriptions Disp Refills escitalopram oxalate (LEXAPRO) 20 mg tablet 30 tablet 0 Sig: Take 1 tablet by mouth every afternoon. Please review and advise. Mandi Mesa MA documented in this encounterGreen [facility] Hospital09-11-[facility] Telephone encounter Note * Telephone Encounter - Christine Hyatt - 05/16/2024 11:54 AM EDT [facility] received an order for PAP therapy. Unfortunately, the patient resides out of service area and we are unable to provide. Please send the referral to an alternateprovider. Thank you, [facility] [phone] fax [facility]09-11-[facility] Miscellaneous Notes* Telephone Encounter - Christine Hyatt - 05/16/2024 11:54 AM EDT [facility] received an order for PAP therapy. Unfortunately, the patient resides out of service area and we are unable to provide. Please send the referral to an alternateprovider. Thank you, [facility] [phone] fax documented in this encounterGreen Cross Hospital08-28-2024 NoteHNO ID: [id number] Author: MANDI MESA MA Service: ? Author Type: Stand Up Forklift Operator Type: Progress Notes Filed: 05/02/2024 15:48 Note Text: ED Follow Up: Patient discharged from [facility] ED on 04/26/2024. 1. How are you feeling since your ED visit? A BIT better Have your symptoms improved or resolved? Some what 2. Were you prescribed any medications while in the ED or advised to stop any medication? Yes - If yes, were you able to fill your prescriptions? Yes -if stopped medication, what was the medication? na 3. Were you advised to schedule a follow up appointment with your provider? Yes - If no, Do you feel like you need an appointment scheduled? Yes - If yes, Do you need this scheduled now or has this already been scheduled? Yes 4. Were you able to contact the office or supervisor stone provider prior to your ED visit? Not applicable 5. Is there anything else I can do for you today? No Patient states he thinks his made apt. With someone for Tuesday. He is unaware if it is for ortho or lccc. He will check with and call us back if he needs to make apt. (Because I don't see it on schedule). Mandi Mesa MA [facility]08-28-20[facility] History of Present illness Narrative* Mandi Mesa MA - 05/02/2024 3:45 PM EDT ED Follow Up: Patient discharged from [facility] ED on 04/26/2024. 1. How are you feeling since your ED visit? A BIT better Have your symptoms improved or resolved? Some what 2. Were you prescribed any medications while in the ED or advised to stop any medication? Yes - If yes, were you able to fill your prescriptions? Yes -if stopped medication, what was the medication? na 3. Were you advised to schedule a follow up appointment with your provider? Yes - If no, Do you feel like you need an appointment scheduled? Yes - If yes, Do you need this scheduled now or has this already been scheduled? Yes 4. Were you able to contact the office or supervisor stone provider prior to your ED visit? Not applicable 5. Is there anything else I can do for you today? No Patient states he thinks his made apt. With someone for Tuesday. He is unaware if it is for ortho or lccc. He will check with and call us back if he needs to make apt. (Because I don't see it on schedule). Mandi Mesa MA documented in this encounterGreen Cross Hospital08-28-2024 NotePatient Outreach (AGFAMPLE) PA CAMPA ([id number]) 1990 M Date Time Provider Department 05/02/24 MANDI MESA During your visit today, we recorded the following information about you: Mandi Mesa MA 05/02/2024 3:48 PM Signed ED Follow Up: Patient discharged from [facility] ED on 04/26/2024. 1. How are you feeling since your ED visit? A BIT better Have your symptoms improved or resolved? Some what 2. Were you prescribed any medications while in the ED or advised to stop any medication? Yes - If yes, were you able to fill your prescriptions? Yes -if stopped medication, what was the medication? na 3. Were you advised to schedule a follow up appointment with your provider? Yes - If no, Do you feel like you need an appointment scheduled? Yes - If yes, Do you need this scheduled now or has this already been scheduled? Yes 4. Were you able to contact the office or supervisor stone provider prior to your ED visit? Not applicable 5. Is there anything else I can do for you today? No Patient states he thinks his made apt. With someone for Tuesday. He is unaware if it is for ortho or lccc. He will check with and call us back if he needs to make apt. (Because I don't see it on schedule). Mandi Mesa MA Allergies As of Date: 05/02/2024 (No Known Allergies) Date Reviewed: 03/29/2024 Reviewed by: Queden, Rhonda A, SERVICE ATTENDANT [employer].SHIPPING AND RECEIVING CLERK - Fully Assessed Reason for Visit: ED OUTREACH [Other] Cmt: ED OUTREACH [facility] 04/26/2024 Prescriptions as of 05/02/2024 - escitalopram oxalate (LEXAPRO) 20 mg tablet TAKE 1 TABLET BY MOUTH EVERY afternoon - multivit-min/folic/vit K/lycop (ONE-A-DAY MEN'S MULTIVITAMIN ORAL) Take 1 tablet by mouth once daily. Problem List As Of Date 05/02/2024 Noted Resolved Obesity, Class I, BMI 30-34.9 [E66.9] 09/14/2023 REDD (generalized anxiety disorder) [F41.1] 09/14/2023 Encounter Status:Closed by MANDI MESA on 05/02/24[facility] 04-25-2024 Telephone encounter Note* Telephone Encounter - Yolanda Rocha LPN - 04/25/2024 1:09 PM EDT Pharmacy requesting refills as follows: Last Office Visit: 09/14/2023 Last Refill: 12/14/2023 Next Office Visit: No future apt Requested Prescriptions Pending Prescriptions Disp Refills escitalopram oxalate (LEXAPRO) 20 mg tablet [Pharmacy Med Name: Escitalopram Oxalate Oral Tablet 20MG] 30 tablet 0 Sig: TAKE 1 TABLET BY MOUTH EVERY afternoon Please review and advise. Yolanda Rocha LPN [facility]08-21-2024 Miscellaneous Notes* Telephone Encounter - Yolanda Rocha LPN - 04/25/2024 1:09 PM EDT Pharmacy requesting refills as follows: Last Office Visit: 09/14/2023 Last Refill: 12/14/2023 Next Office Visit: No future apt Requested Prescriptions Pending Prescriptions Disp Refills escitalopram oxalate (LEXAPRO) 20 mg tablet [Pharmacy Med Name: Escitalopram Oxalate Oral Tablet 20MG] 30 tablet 0 Sig: TAKE 1 TABLET BY MOUTH EVERY afternoon Please review and advise. Yolanda Rocha LPN documented in this encounterGreen [facility]08-13-2024 NoteHNO ID: [id number] Author: ?, ?, ? Service: ? Author Type: ? Type: Progress Notes Filed: 04/17/2024 09:56 Note Text: Sleep Study Check-In Documentation Date: April 17, 2024 Name: Pa Campa Comments: HST was returned in working order with all sleep questionnaires [facility] History of Present illness Narrative* Teresa Darby - 04/17/2024 9:56 AM EDT Sleep Study Check-In Documentation Date: April 17, 2024 Name: Pa Campa Comments: HST was returned in working order with all sleep questionnaires Teresa Darby * Louise Darnell - 04/09/2024 3:51 PM EDT Nomad # [id number] , date shipped out 04-09-24 (no GPS) [employer] only Tracking mailout: [id number] Tracking return: [id number] * Roseanne Martinez III, PhD - 04/03/2024 1:40 PM EDT April 03, 2024 Standing PSG Orders signed in the last 90 days None Future PSG Orders signed in the last 90 days Ordered Auth. provider HOME SLEEP APNEA TEST (HSAT) [[id number]] 03/29/24 Rhonda Padilla APRN.SHIPPING AND RECEIVING CLERK Assoc. diagnoses: Fatigue, unspecified type [R53.83], Excessive daytime sleepiness [G47.19], Loud snoring [R06.83] Q: Indications: A: Obstructive sleep apnea Q: STOP-BANG conditions - Select All That Apply: A: GENDER = male A2: SNORING that is loud or disruptive A3: TIREDNESS, fatigue or sleepiness during the day A4: OBSERVED sleep apnea Q: Current use of supplemental oxygen during sleep period?: A: No All Prior Sleep Studies (past 365 days) 03/29/2024 09:06 Sleep Studies HOME SLEEP APNEA TEST (HSAT) HOME SLEEP APNEA TEST (HSAT) Order Status: Ordered, Future Expires: 03/29/25 BMI Readings from Last 2 Encounters: 03/29/24 : 32.60 kg/m 09/14/23 : 33.41 kg/m No past medical history on file. The medical record was reviewed to determine if the proposed sleep study conforms to the AASM Practice Parameters for the Indications for Polysomnography and Related Procedures, or if the sleep studyis indicated for other reasons. Indications for study: NAHUM suspected without comorbid medical or sleep disorders Sleep study to be performed: Home Sleep Apnea Test (HSAT) Special instructions: None-follow laboratory protocol Keke Velazquez Tech Sleep Medicine Staff Note: I have read the above protocol, edited as needed, and agree to the plan. Roseanne Martinez III, PhD 4:46 PM, 04/04/2024 * Rena Avendano - 04/03/2024 11:31 AM EDT April 03, 2024 An order has been received for Home Sleep Apnea Test (HSAT) from Rhonda Orozco APRN.sedrick CROWELL. [facility] Staff. Visit prep complete. Comments :No The sleep study is scheduled for 04/11. Insurance: Payor: DENISA / Plan: BLUE CARD PPO OOS / Product Type: PPO / Payer/Plan Subscr Sex Relation Sub. Ins. ID Effective Group Num 1. DENISA POPE* PA CAMPA* 1990 Male Self [id number] [birth year] [address] Rena Avendano documented in this encounterGreen Cross Hospital08-05-2024 NoteHNO ID: [id number] Author: ?, ?, ? Service: ? Author Type: ? Type: Progress Notes Filed: 04/17/2024 09:56 Note Text: Nomad # [id number] , date shipped out 04-09-24 (no GPS) [employer] only Tracking mailout: [id number] Tracking return: [id number]08-02-2024 Telephone encounter Note* Telephone Encounter - Mandi Mesa MA - 04/06/2024 10:15 AM EDT Patient received his my chart message. Mandi Mesa MA [facility]08-02-2024 Miscellaneous Notes* Telephone Encounter - Mandi Mesa MA - 04/06/2024 10:15 AM EDT Patient received his my chart message. Mandi Mesa MA * Telephone Encounter - Mandi Mesa MA - 04/06/2024 7:06 AM EDT ----- Message from Rhonda Padilla APRN.SHIPPING AND RECEIVING CLERK sent at 04/05/2024 2:56 PM EDT ----- A1C was in prediabetic range and BS on CMP was 130. Recommend diet and exercise efforts. Limit carband sugar intake. TSH and CBC were WNL Vitamin D was low- start 2,000 international unit(s) daily. He can get this OTC. documented in this encounterGreen Cross Hospital08-02-2024 Telephone encounter Note * Telephone Encounter - Mandi Mesa MA - 04/06/2024 7:06 AM EDT ----- Message from Rhonda Padilla APRN.SHIPPING AND RECEIVING CLERK sent at 04/05/2024 2:56 PM EDT ----- A1C was in prediabetic range and BS on CMP was 130. Recommend diet and exercise efforts. Limit carband sugar intake. TSH and CBC were WNL Vitamin D was low- start 2,000 international unit(s) daily. He can get this OTC. [facility]07-30-2024 NoteHNO ID: [id number] Author: ROSEANNE MARTINEZ III, PhD Service: ? Author Type: Physician Type: Progress Notes Filed: 04/17/2024 09:56 Note Text: April 03, 2024 Standing PSG Orders signed in the last 90 days None Future PSG Orders signed in the last 90 days Ordered Auth. provider HOME SLEEP APNEA TEST (HSAT) [[id number]] 03/29/24 Rhonda Padilla APRN.SHIPPING AND RECEIVING CLERK Assoc. diagnoses: Fatigue, unspecified type [R53.83], Excessive daytime sleepiness [G47.19], Loud snoring [R06.83] Q: Indications: A: Obstructive sleep apnea Q: STOP-BANG conditions - Select All That Apply: A: GENDER = male A2: SNORING that is loud or disruptive A3: TIREDNESS, fatigue or sleepiness during the day A4: OBSERVED sleep apnea Q: Current use of supplemental oxygen during sleep period?: A: No All Prior Sleep Studies (past 365 days) 03/29/2024 09:06 Sleep Studies HOME SLEEP APNEA TEST (HSAT) HOME SLEEP APNEA TEST (HSAT) Order Status: Ordered, Future Expires: 03/29/25 BMI Readings from Last 2 Encounters: 03/29/24 : 32.60 kg/m? 09/14/23 : 33.41 kg/m? No past medical history on file. The medical record was reviewed to determine if the proposed sleep study conforms to the AASM Practice Parameters for the Indications for Polysomnography and Related Procedures, or if the sleep study is indicated for other reasons. Indications for study: NAHUM suspected without comorbid medical or sleep disorders Sleep study to be performed: Home Sleep Apnea Test (HSAT) Special instructions: None-follow laboratory protocol Keke Bernabe Sleep Medicine Staff Note: I have read the above protocol, edited as needed, and agree to the plan. Roseanne Martinez III, PhD 4:46 PM, 04/04/2024[facility]07-30-2024 NoteHNO ID: [id number] Author: ?, ?, ? Service: ? Author Type: ? Type: Progress Notes Filed: 04/17/2024 09:56 Note Text: April 03, 2024 An order has been received for Home Sleep Apnea Test (HSAT) from Rhonda Orozco APRN.CNP, a B. [facility] Staff. Visit prep complete. Comments :No The sleep study is scheduled for 04/11. Insurance: Payor: DENISA / Plan: BLUE CARD PPO OOS / Product Type: PPO / Payer/Plan Subscr Sex Relation Sub. Ins. ID Effective Group Num 1. ANTHGOMEZ - BLUE* PA CAMPA* 1990 Male Self [id number] [birth year] [address] [facility]07-25-2024 Instructions* Patient Instructions* Rhonda Padilla APRN.CNP - 03/29/2024 9:06 AM EDT [facility] Outpatient Lab Hours For your convenience, the outpatient laboratory is open during the following hours: Tuesday- Tuesday 7 a.m. - 3:30 p.m. Tuesday: 8 a.m. - 12 p.m. The lab is closed for lunch from 12:30-1 pm. The outpatient lab is closed on Sundays and hol. documented in this encounterGreen Cross Hospital07-25-2024 NoteHNO ID: [id number] Author: RHONDA PADILLA APRN.CNP Service: ? Author Type: Nurse Practitioner Type: Progress Notes Filed: 03/29/2024 11:33 Note Text: CHIEF COMPLAINT: Pa Campa is a 33 year old male who presents for fatigue. He states he started feeling very fatigued about 3-4 weeks ago. I reviewed past medical, surgical, social, and family histories today and updated chart. Allergies, chronic medications, and supplements were also reviewed. 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 No pertinent past medical history. PAST SURGICAL HISTORY Procedure Laterality Date UNLISTED PROCEDURE HUMERUS/ELBOW Right 1997 reset bone in lower right arm Social History Tobacco Use Smoking status: Former Types: Cigarettes Smokeless tobacco: Former Types: Chew Vaping Use Vaping Use: Former Substance Use Topics Alcohol use: Not Currently Drug use: Never ALLERGIES No Known Allergies Family History Problem Relation Age of Onset Heart Attack Mother Hypertension Father Current Outpatient Medications Medication Sig Dispense Refill escitalopram oxalate (LEXAPRO) 20 mg tablet Take 1 tablet by mouth every afternoon. 30 tablet 2 multivit-min/folic/vit K/lycop (ONE-A-DAY MEN'S MULTIVITAMIN ORAL) Take 1 tablet by mouth once daily. No current facility-administered medications for this visit. Review of Systems Constitutional: Positive for fatigue and unexpected weight change. Negative for appetite change, chills, diaphoresis and fever. Respiratory: Positive for apnea. Negative for cough, chest tightness, shortness of breath and wheezing. Cardiovascular: Negative for chest pain, palpitations and leg swelling. Gastrointestinal: Negative for abdominal pain, diarrhea, nausea and vomiting. Musculoskeletal: Negative. Skin: Negative. Neurological: Negative for dizziness, light-headedness and headaches. Hematological: Negative. Psychiatric/Behavioral: Positive for sleep disturbance. Negative for dysphoric mood. The patient is not nervous/anxious. BP 122/70 Pulse 83 Temp 98 Resp 16 Ht 5' 6 (1.68m) Wt 202 lb (91.6kg) SpO2 98% BMI 32.62 kg/(m2). Physical Exam Vitals and nursing note reviewed. Constitutional: Appearance: He is obese. HENT: Mouth/Throat: Mouth: Mucous membranes are moist. Pharynx: Oropharynx is clear. Eyes: Pupils: Pupils are equal, round, and reactive to light. Neck: Thyroid: No thyromegaly. Cardiovascular: Rate and Rhythm: Normal rate and regular rhythm. Heart sounds: Normal heart sounds, S1 normal and S2 normal. Pulmonary: Effort: Pulmonary effort is normal. Breath sounds: Normal breath sounds and air entry. Musculoskeletal: Cervical back: Neck supple. Skin: General: Skin is warm and dry. Neurological: Mental Status: He is alert and oriented to person, place, and time. Psychiatric: Mood and Affect: Mood normal. Behavior: Behavior normal. Cognition and Memory: Cognition normal. ASSESSMENT/PLAN: 1. Fatigue, unspecified type - ICD9: 780.79, ICD10: R53.83 (primary diagnosis) - Probably multifactorial but leading differential is possible sleep apnea - THYROID STIMULATING HORMONE - HEMOGLOBIN A1C - COMPREHENSIVE METABOLIC PANEL - COMPLETE BLOOD COUNT AND DIFFERENTIAL - VITAMIN D 25 HYDROXY - HOME SLEEP APNEA TEST (HSAT) 2. Excessive daytime sleepiness - ICD9: 780.54, ICD10: G47.19 STOP-BANG= 3 - HOME SLEEP APNEA TEST (HSAT) 3. Loud snoring - ICD9: 786.09, ICD10: R06.83 - HOME SLEEP APNEA TEST (HSAT) 4. REDD (generalized anxiety disorder) - ICD9: 300.02, ICD10: F41.1 - Currently on Lexapro 20 mg daily 5. Screening for diabetes mellitus - ICD9: V77.1, ICD10: Z13.1 - HEMOGLOBIN A1C - COMPREHENSIVE METABOLIC PANEL 6. Screening for deficiency anemia - ICD9: V78.1, ICD10: Z13.0 - COMPLETE BLOOD COUNT AND DIFFERENTIAL 7. Vitamin D deficiency - ICD9: 268.9, ICD10: E55.9 - VITAMIN D 25 HYDROXY New medication(s) prescribed today: None. Counseling completed in adopting health behaviors such as avoiding excessive alcohol use, avoid tobacco use, improve nutrition, and engage in physical activities. Copy of written care plan, clinical summary, treatment plan, new medications, goals, and self management requirements were given to patient. Rhonda Padilla APRN.[facility]07-25-2024 History of Present illness Narrative* Randy Rhonda Dubose APRN.SHIPPING AND RECEIVING CLERK - 03/29/2024 8:54 AM EDT CHIEF COMPLAINT: Pa Campa is a 33 year old male who presents for fatigue. He states he started feeling very fatigued about 3-4 weeks ago. I reviewed past medical, surgical, social, and family histories today and updated chart. Allergies, chronic medications, and supplements were also reviewed. 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 No pertinent past medical history. PAST SURGICAL HISTORY Procedure Laterality Date UNLISTED PROCEDURE HUMERUS/ELBOW Right 1997 reset bone in lower right arm Social History Tobacco Use Smoking status: Former Types: Cigarettes Smokeless tobacco: Former Types: Chew Vaping Use Vaping Use: Former Substance Use Topics Alcohol use: Not Currently Drug use: Never ALLERGIES No Known Allergies Family History Problem Relation Age of Onset Heart Attack Mother Hypertension Father Current Outpatient Medications Medication Sig Dispense Refill escitalopram oxalate (LEXAPRO) 20 mg tablet Take 1 tablet by mouth every afternoon. 30 tablet 2 multivit-min/folic/vit K/lycop (ONE-A-DAY MEN'S MULTIVITAMIN ORAL) Take 1 tablet by mouth once daily. No current facility-administered medications for this visit. Review of Systems Constitutional: Positive for fatigue and unexpected weight change. Negative for appetite change, chills, diaphoresis and fever. Respiratory: Positive for apnea. Negative for cough, chest tightness, shortness of breath and wheezing. Cardiovascular: Negative for chest pain, palpitations and leg swelling. Gastrointestinal: Negative for abdominal pain, diarrhea, nausea and vomiting. Musculoskeletal: Negative. Skin: Negative. Neurological: Negative for dizziness, light-headedness and headaches. Hematological: Negative. Psychiatric/Behavioral: Positive for sleep disturbance. Negative for dysphoric mood. The patient isnot nervous/anxious. BP 122/70 Pulse 83 Temp 98 Resp 16 Ht 5' 6 (1.68m) Wt 202 lb (91.6kg) SpO2 98% BMI 32.62 kg/(m^2). Physical Exam Vitals and nursing note reviewed. Constitutional: Appearance: He is obese. HENT: Mouth/Throat: Mouth: Mucous membranes are moist. Pharynx: Oropharynx is clear. Eyes: Pupils: Pupils are equal, round, and reactive to light. Neck: Thyroid: No thyromegaly. Cardiovascular: Rate and Rhythm: Normal rate and regular rhythm. Heart sounds: Normal heart sounds, S1 normal and S2 normal. Pulmonary: Effort: Pulmonary effort is normal. Breath sounds: Normal breath sounds and air entry. Musculoskeletal: Cervical back: Neck supple. Skin: General: Skin is warm and dry. Neurological: Mental Status: He is alert and oriented to person, place, and time. Psychiatric: Mood and Affect: Mood normal. Behavior: Behavior normal. Cognition and Memory: Cognition normal. ASSESSMENT/PLAN: 1. Fatigue, unspecified type - ICD9: 780.79, ICD10: R53.83 (primary diagnosis) - Probably multifactorial but leading differential is possible sleep apnea - THYROID STIMULATING HORMONE - HEMOGLOBIN A1C - COMPREHENSIVE METABOLIC PANEL - COMPLETE BLOOD COUNT AND DIFFERENTIAL - VITAMIN D 25 HYDROXY - HOME SLEEP APNEA TEST (HSAT) 2. Excessive daytime sleepiness - ICD9: 780.54, ICD10: G47.19 STOP-BANG= 3 - HOME SLEEP APNEA TEST (HSAT) 3. Loud snoring - ICD9: 786.09, ICD10: R06.83 - HOME SLEEP APNEA TEST (HSAT) 4. REDD (generalized anxiety disorder) - ICD9: 300.02, ICD10: F41.1 - Currently on Lexapro 20 mg daily 5. Screening for diabetes mellitus - ICD9: V77.1, ICD10: Z13.1 - HEMOGLOBIN A1C - COMPREHENSIVE METABOLIC PANEL 6. Screening for deficiency anemia - ICD9: V78.1, ICD10: Z13.0 - COMPLETE BLOOD COUNT AND DIFFERENTIAL 7. Vitamin D deficiency - ICD9: 268.9, ICD10: E55.9 - VITAMIN D 25 HYDROXY New medication(s) prescribed today: None. Counseling completed in adopting health behaviors such as avoiding excessive alcohol use, avoid tobacco use, improve nutrition, and engage in physical activities. Copy of written care plan, clinical summary, treatment plan, new medications, goals, and self management requirements were given to patient. Rhonda Padilla APRN.MERVAT documented in this encounterGreen Cross Hospital04-10-2024 Miscellaneous Notes* Telephone Encounter - Shelly Abreu MA - 12/14/2023 7:17 AM EDT patient electronically requesting refills as follows: Last seen 09/14/23 . Last refill 10/21/23 . Requested Prescriptions Pending Prescriptions Disp Refills escitalopram oxalate (LEXAPRO) 20 mg tablet 30 tablet 2 Sig: Take 1 tablet by mouth every afternoon. Please review and advise. Shelly Abreu MA [facility]* Diagnosis Fatigue, unspecified type- Primary Excessive daytime sleepiness Loud snoring REDD (generalized anxiety disorder) Generalized anxiety disorder Screening for diabetes mellitus Screening for deficiency anemia Screening for other and unspecified deficiency anemia Vitamin D deficiency Unspecified vitamin D deficiency [facility] Diagnosis Excessive daytime sleepiness- Primary Mild obstructive sleep apnea Obstructive sleep apnea (adult) (pediatric) documented [facility] this encounter [facility]* Diagnosis Right leg pain Pain in limb [facility]* Diagnosis Right leg pain- Primary Pain in limb Right leg pain Pain in limb [facility]* Diagnosis Chronic pain of right knee [facility]* Diagnosis Sciatica, right side documented [facility] this encounter [facility]* Diagnosis Chronic pain of right knee- Primary Sciatica, right side Screening cholesterol level Screening for lipoid disorders NAHUM (obstructive sleep apnea) Obstructive sleep apnea (adult) (pediatric) Sciatica, right side Chronic pain of right knee Chronic pain of right knee [facility] this encounter [facility]* Diagnosis Sore throat- Primary Acute pharyngitis Acute non-recurrent streptococcal tonsillitis documented [facility] this encounter [facility] Narrative No data available for this section [facility] Progress note No data available for this section [facility] Reason for referral (narrative)* Diagnostic Procedure Only (Routine) - New Request Specialty Diagnoses / Procedures Referred By Ancelmo gonzalez Referred To Contact [facility] Diagnoses Fatigue, unspecified type Excessive daytime sleepiness Loud snoring Procedures HOME SLEEP APNEA TEST (HSAT) SLEEP STD AIRFLOW HRT RATE&O2 SAT EFFORT UNATT Rhonda Padilla APRN.SHIPPING AND RECEIVING CLERK [address] [place] [address] [place] [address] Referral ID Status Reason Start Date Expiration Date Visits Requested Visits Authorized [id number] New Request Auto-Generat ed Referral 03/29/2024 03/29/2025 1 1 [facility] for referral (narrative)* Diagnostic Procedure Only (Urgent) - Closed Specialty Diagnoses / Procedures Referred By Ancelmo gonzalez Referred To Contact [facility] IMAGING Diagnoses Right leg pain Procedures US DVT LOWER RIGHT DUP-SCAN XTR VEINS UNILATERAL/LIMITED STUDY Karolina Juares APRN.SHIPPING AND RECEIVING CLERK [address] [place] [address] [facility] [place] [address] Referral ID Status Reason Start Date Expiration Date V isits Requested Visits Authorized [id number] Closed Auto-Generate d Referral 10/02/2024 11/01/2025 1 1 [facility] for referral (narrative)* Diagnostic Procedure Only (Urgent) - Closed Specialty Diagnoses / Procedures Referred By Ancelmo t Referred To Contact [facility] IMAG[facility] Diagnoses Right leg pain Procedures US DVT LOWER RIGHT DUP-SCAN XTR VEINS UNILATERAL/LIMITED STUDY Karolina Juares APRN.SHIPPING AND RECEIVING CLERK [address] [place] [address] [place] [address] Referral ID Status Reason Start Date Expiration Date V isits Requested Visits Authorized [id number] Closed Auto-Generate d Referral 10/02/2024 11/01/2025 1 1 * Outpatient Procedure (Urgent) - New Request Specialty Diagnoses / Procedures Referred By Ancelmo t Referred [facility] Diagnoses Right leg pain Procedures US LEG VEIN DVT UNL VAS LAB US LEG VEIN DVT UNL VAS LAB DUP-SCAN XTR VEINS UNILATERAL/LIMITED STUDY Karolina Juares APRN.SHIPPING AND RECEIVING CLERK [address] [place] [address] [facility] [address] [place] [address] Referral ID Status Reason Start Date Expiration Date Visits Requested Visits Authorized [id number] New Request Auto-Generat ed Referral 10/02/2024 10/02/2025 1 1 [facility] for visit Narrative* Diagnostic Procedure Only (Urgent) - Closed Specialty Diagnoses / Procedures Referred By Ancelmo t Referred To Contact [facility] Diagnoses Right leg pain Procedures US DVT LOWER RIGHT DUP-SCAN XTR VEINS UNILATERAL/LIMITED STUDY Karolina Juares APRN.SHIPPING AND RECEIVING CLERK [address] [place] [address] [place] [address] Referral ID Status Reason Start Date Expiration Date V isits Requested Visits Authorized [id number] Closed Auto-Generate d Referral 10/02/2024 11/01/2025 1 1 [facility] for visit Narrative* Diagnostic Procedure Only (Routine) - Closed Specialty Diagnoses / Procedures Referred By Contac t Referred To Contact XR IMAGING Diagnoses Chronic pain of right knee Procedures XR KNEE LIMITED 2V AP/LAT RIGHT RADIOLOGIC EXAMINATION KNEE 1/2 VIEWS Sheets, Page C, DO [address] [place] [address] [place] [address] Referral ID Status Reason Start Date Expiration Date V isits Requested Visits Authorized [id number] Closed Auto-Generate d Referral 10/04/2024 11/03/2025 1 1 [facility] for visit Narrative* Diagnostic Procedure Only (Routine) - Closed Specialty Diagnoses / Procedures Referred By Contac t Referred To Contact XR IMAGING Diagnoses Sciatica, right side Procedures XR LUMBAR PARS DEFECT 4V AP/LAT/BOTH OBL RADEX SPINE LUMBOSACRAL MINIMUM 4 VIEWS Sheets, Page C, DO [address] [facility] [address] [place] [address] Referral ID Status Reason Start Date Expiration Date V isits Requested Visits Authorized [id number] Closed Auto-Generate d Referral 10/04/2024 11/03/2025 1 1 [facility] for visit Narrative* Diagnostic Procedure Only (Routine) - Closed Specialty Diagnoses / Procedures Referred By Contac t Referred To Contact XR IMAGING Diagnoses Chronic pain of right knee Procedures XR KNEE SURVEY ARTHRITIS 1V AP BILATERAL RADIOLOGIC EXAM BOTH KNEES STANDING ANTEROPOST Yessi Page C, DO [address] [place] [address] [place] [address] Referral ID Status Reason Start Date Expiration Date V isits Requested Visits Authorized [id number] Closed Auto-Generate d Referral 10/04/2024 11/03/2025 1 1 [facility] Summary Purpose Family History No Family History Records Found No data available for this section No Family History Records FoundNo Family History Records FoundNo Family History Records FoundNo Family History Records FoundNo Family History Records FoundNo Family History Records FoundNo Family History Records FoundNo Family History Records FoundNo Family History Records FoundNo Family History Records Found Advance Directives No Advanced Directives Records FoundNo Advanced Directives Records FoundNo Advanced Directives Records FoundNo Advanced Directives Records FoundNo Advanced Directives Records FoundNo Advanced Directives Records FoundNo Advanced Directives Records FoundNo Advanced Directives Records FoundNo Advanced Directives Records FoundNo Advanced Directives Records FoundNo Advanced Directives Records Found Chief Complaint and Reason for Visit Chief Complaint Admit Date LUMBAR SPINE October 09, 2024 8 :25am Room 3 October 09, 2024 8 :35am LUMBAR STENOSIS. RX HERE October 12, 025 12:17pm Reason for Visit Admit Date Lumbar stenosis with neurogenic claudica tion October 09, 2024 8:25am Degenerative disc disease, lumbar Februa 2024 8:25am Additional Source Comments Source Comments (unrecognize d section and content) In the event this informatio n is protected by the Federal Confidentiality of Alcohol and Drug Abuse Patient Records regulations: The Federal rules restrict any use of the information to criminally investigate or prosecute any alcohol or drug abuse patient.[facility] the event this information is protected by the Federal Confidentiality of Alcohol and Drug Abuse Patient Records regulations: The Federal rules restrict any use of the information to criminally investigate or prosecute any alcohol or drug abuse patient.[facility] HospitalIn the event this information is protected by the Federal Confidentiality of Alcohol and Drug Abuse Patient Records regulations: The Federal rules restrict any use of the information to criminally investigate or prosecute any alcohol or drug abuse patient.[facility]In the event this information is protected by the Federal Confidentiality of Alcohol and Drug Abuse Patient Records regulations: The Federal rules restrict any use of the information to criminally investigate or prosecute any alcohol or drug abuse patient.[facility] HospitalIn the event this information is protected by the Federal Confidentiality of Alcohol and Drug Abuse Patient Records regulations: The Federal rules restrict any use of the information to criminally investigate or prosecute any alcohol or drug abuse patient.[facility] HospitalIn the event this information is protected by the Federal Confidentiality of Alcohol and Drug Abuse Patient Records regulations: The Federal rules restrict any use of the information to criminally investigate or prosecute any alcohol or drug abuse patient.[facility] HospitalIn the event this information is protected by the Federal Confidentiality of Alcohol and Drug Abuse Patient Records regulations: The Federal rules restrict any use of the information to criminally investigate or prosecute any alcohol or drug abuse patient.[facility] HospitalIn the event this information is protected by the Federal Confidentiality of Alcohol and Drug Abuse Patient Records regulations: The Federal rules restrict any use of the information to criminally investigate or prosecute any alcohol or drug abuse patient.[facility] HospitalIn the event this information is protected by the Federal Confidentiality of Alcohol and Drug Abuse Patient Records regulations: The Federal rules restrict any use of the information to criminally investigate or prosecute any alcohol or drug abuse patient.[facility] HospitalIn the event this information is protected by the Federal Confidentiality of Alcohol and Drug Abuse Patient Records regulations: The Federal rules restrict any use of the information to criminally investigate or prosecute any alcohol or drug abuse patient.[facility] HospitalIn the event this information is protected by the Federal Confidentiality of Alcohol and Drug Abuse Patient Records regulations: The Federal rules restrict any use of the information to criminally investigate or prosecute any alcohol or drug abuse patient.[facility] HospitalIn the event this information is protected by the Federal Confidentiality of Alcohol and Drug Abuse Patient Records regulations: The Federal rules restrict any use of the information to criminally investigate or prosecute any alcohol or drug abuse patient.[facility] HospitalIn the event this information is protected by the Federal Confidentiality of Alcohol and Drug Abuse Patient Records regulations: The Federal rules restrict any use of the information to criminally investigate or prosecute any alcohol or drug abuse patient.[facility] HospitalIn the event this information is protected by the Federal Confidentiality of Alcohol and Drug Abuse Patient Records regulations: The Federal rules restrict any use of the information to criminally investigate or prosecute any alcohol or drug abuse patient.[facility] HospitalIn the event this information is protected by the Federal Confidentiality of Alcohol and Drug Abuse Patient Records regulations: The Federal rules restrict any use of the information to criminally investigate or prosecute any alcohol or drug abuse patient.[facility] HospitalIn the event this information is protected by the Federal Confidentiality of Alcohol and Drug Abuse Patient Records regulations: The Federal rules restrict any use of the information to criminally investigate or prosecute any alcohol or drug abuse patient.[facility] HospitalIn the event this information is protected by the Federal Confidentiality of Alcohol and Drug Abuse Patient Records regulations: The Federal rules restrict any use of the information to criminally investigate or prosecute any alcohol or drug abuse patient.[facility] HospitalIn the event this information is protected by the Federal Confidentiality of Alcohol and Drug Abuse Patient Records regulations: The Federal rules restrict any use of the information to criminally investigate or prosecute any alcohol or drug abuse patient.[facility] HospitalIn the event this information is protected by the Federal Confidentiality of Alcohol and Drug Abuse Patient Records regulations: The Federal rules restrict any use of the information to criminally investigate or prosecute any alcohol or drug abuse patient.[facility] HospitalIn the event this information is protected by the Federal Confidentiality of Alcohol and Drug Abuse Patient Records regulations: The Federal rules restrict any use of the information to criminally investigate or prosecute any alcohol or drug abuse patient.[facility] HospitalIn the event this information is protected by the Federal Confidentiality of Alcohol and Drug Abuse Patient Records regulations: The Federal rules restrict any use of the information to criminally investigate or prosecute any alcohol or drug abuse patient.[facility] HospitalIn the event this information is protected by the Federal Confidentiality of Alcohol and Drug Abuse Patient Records regulations: The Federal rules restrict any use of the information to criminally investigate or prosecute any alcohol or drug abuse patient.[facility] HospitalIn the event this information is protected by the Federal Confidentiality of Alcohol and Drug Abuse Patient Records regulations: The Federal rules restrict any use of the information to criminally investigate or prosecute any alcohol or drug abuse patient.[facility] HospitalIn the event this information is protected by the Federal Confidentiality of Alcohol and Drug Abuse Patient Records regulations: The Federal rules restrict any use of the information to criminally investigate or prosecute any alcohol or drug abuse patient.[facility] HospitalIn the event this information is protected by the Federal Confidentiality of Alcohol and Drug Abuse Patient Records regulations: The Federal rules restrict any use of the information to criminally investigate or prosecute any alcohol or drug abuse patient.[facility] HospitalIn the event this information is protected by the Federal Confidentiality of Alcohol and Drug Abuse Patient Records regulations: The Federal rules restrict any use of the information to criminally investigate or prosecute any alcohol or drug abuse patient.[facility] Reason for Visit (unrecogniz ed section and content) Reason Onset Date Comments Refill Request 12/13/2023 Reason Comments Fatigue For the past 3 weeks he has been really tired, having trouble focusing. He has been taking lexapro and he thinks that may be the cause Reason Comments Results Reason Comments Refill Request Reason Onset Date Comments ED OUTREACH 05/02[facility]20[facility] Reason Comments PAP Therapy Follow Up Reason Onset Date Comments Refill Request 05/30/2024 Reason Onset Date Comments ED Outreach 07/04/2024 [facility] 06/29/24 Reason Comments Results Orders Reason Comments Right Knee Pain Right knee and lower leg pain x 2 weeks-cannot recall an injury Reason Comments Forms [facility] Rehabilitation S ervices Initial Evaluation Reason Comments urgent care follow up [facility] 10/02, states he is still having the right leg pain, did the ultrasound yesterday and it was negative. Wonders if he needs xray, tender on the inside of his knee, tried different shoes but it did not help Reason Comments Sore Throat x 1 day Reason Onset Date Comments Refill Request 12/03/2024 Reason Onset Date Comments Refill Request 01/05/2025 Reason Onset Date Comments Refill Request 02/09/2025 Reason Onset Date Comments Refill Request 02/24/2025 Care Teams (unrecognized sec tion and content) Flour Blender Relationship Specialty Start Date End Date Page Blandon DO [address] [place] [address] PCP - General Family Medicine 12/14/23 Flour Blender Relationship Specialty Start Date End Date Page Blandon DO [address] [place] [address] PCP - General Family Medicine 12/14/23 Flour Blender Relationship Specialty Start Date End Date Page Blandon DO [address] [place] [address] PCP - General Family Medicine 12/14/23 Flour Blender Relationship Specialty Start Date End Date Page Blandon DO [address] [place] [address] PCP - General Family Medicine 12/14/23 Flour Blender Relationship Specialty Start Date End Date Yessi Page Hernandez DO [address] [place] [address] PCP - General Family Medicine 12/14/23 Flour Blender Relationship Specialty Start Date End Date Sheets Page Hernandez DO [address] [place] [address] PCP - General Family Medicine 12/14/23 Flour Blender Relationship Specialty Start Date End Date Pgae Blandon DO [address] [place] [address] PCP - General Family Medicine 12/14/23 Flour Blender Relationship Specialty Start Date End Date SheetsPage DO [address] [place] [address] PCP - General Family Medicine 12/14/23 Flour Blender Relationship Specialty Start Date End Date Page Blandon DO [address] [place] [address] PCP - General Family Medicine 12/14/23 Flour Blender Relationship Specialty Start Date End Date Page Blandon DO [address] [place] [address] PCP - General Family Medicine 12/14/23 Flour Blender Relationship Specialty Start Date End Date SheetsPage DO [address] [place] [address] PCP - General Family Medicine 12/14/23 Flour Blender Relationship Specialty Start Date End Date Page Blandon [address] [facility] [place] [id number] PCP - General Family Medicine 12/14/23 Flour Blender Relationship Specialty Start Date End Date Page Blandon [address] [facility], [place] [id number] PCP - General Family Medicine 12/14/23 Flour Blender Relationship Specialty Start Date End Date Page Blandon [address] [facility], [place] [id number] PCP - General Family Medicine 12/14/23 Flour Blender Relationship Specialty Start Date End Date Jeanne Blandonly Mary [address] [place] [address] PCP - General Family Medicine 12/14/23 Flour Blender Relationship Specialty Start Date End Date Page Blandon [address] [place] [address] PCP - General Family Medicine 12/14/23 Team Status: Active Member Role Status Dates Rhonda Padilla TURRET PUNCH OPERATOR, TURRET PUNCH OPERATOR-C Primary Care Provider Active Team Status: Inactive Member Role Status Dates Rhonda Padilla TURRET PUNCH OPERATOR, TURRET PUNCH OPERATOR-C Primary Care Provider Active Start: October 09, 2024 End: October 09, 2024 Rhonda Padilla TURRET PUNCH OPERATOR, TURRET PUNCH OPERATOR-C Referring Provider Active Start: October 09, 2024 End: October 09, 2024 TYLOR Chairez Attending Provider Active Star t: October 09, 2024 End: October 09, 2024 Team Status: Inactive Member Role Status Dates Rhonda Padilla TURRET PUNCH OPERATOR, TURRET PUNCH OPERATOR-C Primary Care Provider Active Start: October 09, 2024 End: October 09, 2024 Dr. Km Cabrera MD Attending Provider Active S tart: October 09, 2024 End: October 09, 2024 Team Status: Inactive Member Role Status Dates Rhonda Padilla TURRET PUNCH OPERATOR, TURRET PUNCH OPERATOR-C Primary Care Provider Active Start: October 12, 2024 End: October 12, 2024 TYLOR Chairez Attending Provider Active Star t: October 12, 2024 End: October 12, 2024 Flour Blender Relationship Specialty Start Date End Date Page Blandon DO [address] [facility] [place] [address] PCP - General Family Medicine 12/14/23 (unrecognized sect ion and content) No Status Records FoundNo Status Records FoundNo Status Records FoundNo Status Records FoundNo Status Records FoundNo Status Records FoundNo Status Records FoundNo Status Records FoundNo Status Records FoundNo Status Records FoundNo Status Records Found INFORMATION SOURCE (unrecogn ized section and content) DATE CREATED AUTHOR 06/12/2024 [facility] DATE CREATED AUTHOR AUTHOR'S ORGANIZ ATION [facility]2024 [facility] DATE CREATED AUTHOR AUTHOR'S ORGANIZ ATION 07/05/2024 [facility] DATE CREATED AUTHOR AUTHOR'S ORGANIZ ATION 10/20/2024 [facility] DATE CREATED AUTHOR AUTHOR'S ORGANIZ ATION 11/28/2024 [facility] DATE CREATED AUTHOR AUTHOR'S ORGANIZ ATION 02/28/2025 [facility] Goals (unrecognized section and content) Goals may be documented in a n alternate section FOR RECORDS PERTAINING TO PATIENTS WHO ARE OR HAVE BEEN ENROLLED IN A CHEMICAL DEPENDENCY/SUBSTANCEABUSE PROGRAM, SOME INFORMATION MAY BE OMITTED. This clinical summary was aggregated from multiple sources. Caution should be exercised in using it in the provision of clinical care. This summary normalizes information from multiple sources, and as a consequence, information in this document may materially change the coding, format and clinical context of patient data. In addition, data may be omitted in some cases. CLINICAL DECISIONS SHOULD BE BASED ON THE PRIMARY CLINICAL RECORDS. [facility] [facility]. provides no warranty or guarantee of the accuracy or completeness of information in this document.
--- NOTE | 2025-02-28 07:10 | MRI_ITS ---
PROCEDURE: SPINE LUMBAR (ROUTINE) 02/28/2025 REASON FOR EXAM: PAIN TECHNIQUE: SPINE LUMBAR (ROUTINE) COMPARISON: 10-09-2024 CR FINDINGS: Straightened lumbar lordosis denoting myospasm. The examined vertebrae bodies and posterior neural arches show no fracture or dislocation. Preserved lumbar vertebral bodies height. Reduced height and bright T2 WI signal of L5-S1 disc. No obvious marrow degenerative changes. Modic 0. T12-L1: There is no focal disc pathology, central canal stenosis or neural foraminal stenosis. L1-L2: There is no focal disc pathology, central canal stenosis or neural foraminal stenosis. L2-L3: There is no focal disc pathology, central canal stenosis or neural foraminal stenosis. L3-L4: There is no focal disc pathology, central canal stenosis or neural foraminal stenosis. L4-L5: There is no focal disc pathology, central canal stenosis or neural foraminal stenosis. L5-S1: a diffuse disc bulge with a 1.5 mm central , right paracentral and right foraminal focal disc protrusion seen indenting the theca and encroaching upon the related neural exit foramina inducing moderate right and minimal left exiting nerve roots compression. The lower thoracic spinal cord, conus medullaris, and cauda equina nerve roots are unremarkable. No marrow infiltrative lesions. Paravertebral soft tissue is unremarkable. No developmental canal stenosis. Orthostatic soft tissue edema of the back. MRI/Spine Lumbar (Routine) IMPRESSION: Straightened lumbar lordosis denoting myospasm. No vertebral fractures or dislocation. L5-S1: a diffuse disc bulge with a 1.5 mm central , right paracentral and right foraminal focal disc protrusion inducing moderate right and minimal left exiting nerve roots compression. Reading [facility]
== END | disposition home or self-care (01) ==
PROVIDERS: PCP Nurse Practitioner Family; Referring Provider Student in an Organized Health Care Education/Training Program; Visit Provider Student in an Organized Health Care Education/Training Program
DX: M48.062 Spinal stenosis, lumbar region with neurogenic claudication (principal)
CPT/HCPCS: 72148